=== PATIENT | male | born 1940 | race Caucasian/White ===

== ENCOUNTER → 2017-04-03 | Day surgery (SDC) | payer OTHER ==
[2017-03-14 14:39] VITALS: Ht 180.3 cm; Wt 109.1 kg
[~2017-04-03] VITALS: Ht 180.3 cm; Wt 109.1 kg
[~2017-04-03] MED LIST: 500ML BSS 0.3ML EPI 1:1000PF IRRIG ONE; ACETAMINOPHEN 325 MG TAB PO PRN; AMVISC PLUS 0.8ML SYRINGE INT OCU ONE; ATEN-175 PO; ATROPINE SULFATE 0.1 MG/ML 5ML SYR IV PRN; BSS FLUSH ONE; DRGTP25 TOP; ENDOCOAT 0.85ML SYRINGE INT OCU ONE; EpHEDrine SULFATE INJ 50 MG/ML AMP IV PRN; EpINEphrine INJ 1MG/ML AMP 1 MG/ML AMP ONE; FENTANYL CITRATE INJ 50 MCG/1 ML 2 ML VIAL ONE; FERR1TAB23 PO; LACTATED RINGER'S 1000ML 500 ML IV SCH; LIDOCAINE 4% OP SOLN DROP CHARGE ONE; LIDOCAINE 4% OP SOLN DROP CHARGE OPL SCH; LIDOCAINE HCL 1% MPF 2 ML VIAL ONE; MIDAZOLAM HCL 1 MG/ML 2ML VIAL ONE; MIX: 4ML BSS 1ML EPI 1:1000 PF TOP ONE; MOXIFLOXACIN OPH SOLN PER DROP CHARGE ONE; OMEP40CA PO; ONDANSETRON INJ 2 MG/ML 2 ML VIAL IV PRN; PHENYLEPHRINE HCL 10% OP SOLN PER DROP CHARGE ONE; POVIDONE-IODINE OP SOLN 30 ML BTL ONE; PROPARACAINE 0.5% OP SOLN PER DROP CHARGE OPL SCH; TOBRAMYCIN/DEXAMETHASONE OPH OINT PER APPLN CHARGE ONE; TRAM-10 PO
--- NOTE | 2017-04-03 06:36 | History & Physical Bridge - [place] ---
H&P Re-Evaluation Bridge Note: I have examined the patient, reviewed the History & Physical and in the interval since the performance of the History & Physical I have noted the following changes of clinical significance: No changes noted. Left eye cataract surgery.
[2017-04-03] MEDS: PHENYLEPHRINE HCL 10% OP SOLN PER DROP CHARGE OPL SCH ×3 (06:42→06:51)
[2017-04-03] MEDS: CYCLOPENTOLATE HCL 1% OP SOLN PER DROP CHARGE OPL SCH ×3 (06:43→06:52)
[2017-04-03] MEDS: TROPICAMIDE 1% OP SOLN PER DROP CHARGE OPL SCH ×3 (06:43→06:51)
[2017-04-03] MEDS: MOXIFLOXACIN OPH SOLN PER DROP CHARGE OPL SCH ×3 (06:44→06:52)
--- NOTE | 2017-04-03 07:23 | [facility] Post Operative Brief Note ---
Immediate Operative Summary Operative Date Apr 03, 2017. Pre-Operative Diagnosis Left eye cataract Post-Operative Diagnosis Same as preop Procedure(s) Performed Left Cataract Phacoemulsification With Intraocular Lens Implant; Toric Lens Surgeon Dr. Kuhn Gum Scoring Machine Operator Surgeon(s) None Estimated Blood Loss 0 mL Findings left cataract Specimens None Complication(s) None Disposition
--- NOTE | 2017-04-03 07:25 | [facility] Operative Report ---
Operative Report Date of Service Apr 03, 2017. Operative Report Phaco with toric IOL DATE OF OPERATION: 04/03/17 PREOPERATIVE DIAGNOSIS: Senile nuclear cataract and astigmatism, left eye POSTOPERATIVE DIAGNOSIS: Senile nuclear cataract and astigmatism, left eye PROCEDURE PERFORMED: Phacoemulsification with toric intraocular lens implantation, left eye SURGEON: Dr. Efe Kuhn ANESTHESIA: Topical with 1% intracameral lidocaine and monitored anesthesia care COMPLICATIONS: None DESCRIPTION OF PROCEDURE: After positively identifying the patient both verbally and by wristband in the preoperative area, the left eye was marked as the operative eye. Using a Robomarker, the 9 degree axis was marked after placing a drop or proparacaine. The patient was then brought back to the operating room by the anesthesia and nursing staff where they were given a drop of tetracaine and betadine into the operative eye. They were then sterilely prepped and draped in the standard fashion typical for ophthalmic surgery. Steri-strips were placed along the upper eyelids to keep the lashes back, and a lid speculum was placed into the operative eye. At this point, a documented time out was performed with members of the ophthalmology, nursing, and anesthesia staffs all agreeing upon the correct patient, correct location for surgery, correct procedure, and correct type and power of intraocular lens to be implanted. The microscope was then swung into position. Then, a paracentesis wound was made using a sideport blade. Then, in sequence, 1% preservative-free lidocaine followed by Endocoat viscoelastic was injected into the anterior chamber. Next , the main incision was made with a keratome blade in triplanar fashion. A sharp cystotome was introduced into the eye and used to create a tear in the anterior capsule, which was directed into a continuous curvilinear capsulorrhexis using Utrata forceps. Hydrodissection was then performed with BSS on a flat-tip cannula. Next, the phacoemulsification handpiece was introduced into the eye and used to remove the nucleus in a [id number] fashion. This was done without complication and then the irrigation-aspiration handpiece was introduced into the eye and used to remove all remaining cortical and epinuclear material. Amvisc was then injected into the anterior chamber as well as into the capsular bag and using the lens injector system, an [id number] 16.0 D lens, serial number [id number], and expiration date 10/2019 was injected into the capsular bag and rotated into the correct position to correctly line up with the toric marking. Next, the irrigation-aspiration handpiece was used to remove all remaining Amvisc. BSS was used to hydrate the main wound, and then BSS was injected into the paracentesis site to reach physiologic pressure and then the main wound was checked and found to be watertight. The patient was given drops of Vigamox and tobradex ointment into the operative eye, and then the surrounding area was cleaned and dried. A clear plastic shield was placed over the eye and the patient was then sat up and taken from the operating room by the anesthesia staff having tolerated the procedure well and suffering no complications. DISPOSITION: The patient was returned to the recovery room in stable condition. I attest to the content of the Intraoperative Record and any orders documented therein. Any exceptions are noted below.
--- NOTE | 2017-04-03 07:26 | Discharge Instructions-SurgCtr ---
Discharge Instructions Date of Service Apr 03, 2017. Visit Reason for Visit: Cataract Left Eye Discharge Discharge Diagnosis / Problem: left cataract Discharge Goals Goal(s): Decrease discomfort, Improve function Activity Recommendations Activity Limitations: as noted below Anesthesia . Post Anesthesia Instructions: If you have had General Anesthesia or IV Sedation: * Do not drive today. * Resume driving when surgeon permits. * Do not make important decisions or sign legal documents today. * Call surgeon for: 1. Temperature elevations greater than 101 degrees F. 2. Uncontrollable pain. 3. Excessive bleeding. 4. Persistent nausea and vomiting. 5. Medication intolerance (nausea, vomiting or rash). * For nausea and vomiting use only clear liquids such as: tea, soda, bouillon until nausea subsides, then gradually increase diet as tolerated. * If you have any concerns or questions, call your surgeon's office. If physician is unavailable and it is an emergency, call 911 or go to the nearest emergency room. . Instructions / Follow-Up Instructions / Follow-Up ACTIVITY RECOMMENDATIONS: * Light activities. * You may walk outside, read, watch television. * You may notice redness on the white part of the eye and some blurry vision - this is normal. MEDICATIONS: Resume previous medications unless instructed otherwise by your surgeon. Start all eye drops at 9:30 am today: * Eye drops (today): Durezol - one drop in operative eye 4 times daily Ofloxacin - one drop in operative eye every 2 hours while awake Ilevro - one drop in operative eye daily SPECIAL CARE INSTRUCTIONS: * Tape plastic shield over eye to sleep at night. Call your doctor at with any concerns or problems. FOLLOW UP VISIT: Follow-up with Dr Kuhn at [facility] as scheduled. Diet Recommendations Home Diet: no limitations Procedures Procedures Performed: Left Cataract Phacoemulsification With Intraocular Lens Implant; Toric Lens Pending Studies Studies pending at discharge: no Medical Emergencies . Who to Call and When: Medical Emergencies: If at any time you feel your situation is an emergency, please call 911 immediately. . Non-Emergent Contact Non-Emergency issues call your: Surgeon . . "Provider Documentation" section prepared by Efe Kuhn. .
[2017-04-03 07:27] VITALS: TEMP 36.6
[2017-04-03 07:49] VITALS: BP 136/78; PULSE 59; O2SAT 95
--- NOTE | 2017-04-03 07:53 | Anesthesia Progress Nt - [facility] ---
Anesthesia Post Op Note Date & Time Apr 03, 2017 at 07:52 Vital Signs Pain Intensity: 0 Vital Signs Past 12 Hours Date Time Temp Pulse Resp B/P (MAP) Pulse Ox O2 Delivery O2 Flow Rate FiO2 04/03/17 07:49 59 16 136/78 (97) 95 Room Air 04/03/17 07:27 36.6 63 16 153/81 (105) 97 Room Air 04/03/17 06:25 36.7 63 20 135/82 (99) 96 Room Air Notes Mental Status: alert / awake / arousable, participated in evaluation Pt Amnestic to Procedure: Yes Nausea / Vomiting: adequately controlled Pain: adequately controlled Airway Patency, RR, SpO2: stable & adequate BP & HR: stable & adequate Hydration State: stable & adequate Anesthetic Complications: no major complications apparent
== END | disposition home or self-care (01) ==
LOC: X.SURG 06:10
PROVIDERS: ATTEND Ophthalmology
DX: H25.12 Age-related nuclear cataract, left eye (principal); H52.202 Unspecified astigmatism, left eye; G47.33 Obstructive sleep apnea (adult) (pediatric); I10 Essential (primary) hypertension; M19.90 Unspecified osteoarthritis, unspecified site; E66.9 Obesity, unspecified; Z68.35 Body mass index [BMI] 35.0-35.9, adult; Z98.890 Other specified postprocedural states

== ENCOUNTER → 2017-04-17 | Day surgery (SDC) | payer OTHER ==
[2017-04-09 16:20] VITALS: Ht 180.3 cm; Wt 109.1 kg
[~2017-04-17] VITALS: Ht 180.3 cm; Wt 109.1 kg
[~2017-04-17] MED LIST changes: -FENTANYL CITRATE INJ 50 MCG/1 ML 2 ML VIAL ONE; -LIDOCAINE 4% OP SOLN DROP CHARGE OPL SCH; +LIDOCAINE 4% OP SOLN DROP CHARGE OPR SCH; -ONDANSETRON INJ 2 MG/ML 2 ML VIAL IV PRN; -PHENYLEPHRINE HCL 10% OP SOLN PER DROP CHARGE ONE; -PROPARACAINE 0.5% OP SOLN PER DROP CHARGE OPL SCH; +PROPARACAINE 0.5% OP SOLN PER DROP CHARGE OPR SCH
[2017-04-17] MEDS: PHENYLEPHRINE HCL 10% OP SOLN PER DROP CHARGE OPR SCH ×3 (06:37→06:47)
[2017-04-17] MEDS: TROPICAMIDE 1% OP SOLN PER DROP CHARGE OPR SCH ×3 (06:38→06:48)
[2017-04-17] MEDS: CYCLOPENTOLATE HCL 1% OP SOLN PER DROP CHARGE OPR SCH ×3 (06:39→06:49)
[2017-04-17] MEDS: MOXIFLOXACIN OPH SOLN PER DROP CHARGE OPR SCH ×3 (06:40→06:50)
--- NOTE | 2017-04-17 06:40 | History & Physical Bridge - [place] ---
H&P Re-Evaluation Bridge Note: I have examined the patient, reviewed the History & Physical and in the interval since the performance of the History & Physical I have noted the following changes of clinical significance: No changes noted. Right eye cataract surgery.
--- NOTE | 2017-04-17 07:29 | [facility] Post Operative Brief Note ---
Immediate Operative Summary Operative Date Apr 17, 2017. Pre-Operative Diagnosis Right Eye Cataract Post-Operative Diagnosis same Procedure(s) Performed Right Cataract Phacoemulsification With Intraocular Lens Implant Surgeon Dr. Tristan Kuhn Nitrocellulose Operator Surgeon(s) 0 Estimated Blood Loss 0 Findings right cataract Specimens none Complication(s) None Disposition
--- NOTE | 2017-04-17 07:30 | [facility] Operative Report ---
Operative Report Date of Service Apr 17, 2017. Operative Report DATE OF OPERATION: 04/17/17 PREOPERATIVE DIAGNOSIS: Senile nuclear cataract and astigmatism, right eye POSTOPERATIVE DIAGNOSIS: Senile nuclear cataract and astigmatism, right eye PROCEDURE PERFORMED: Phacoemulsification with toric intraocular lens implantation, right eye SURGEON: Dr. Efe Kuhn ANESTHESIA: Topical with 1% intracameral lidocaine and monitored anesthesia care COMPLICATIONS: None DESCRIPTION OF PROCEDURE: After positively identifying the patient both verbally and by wristband in the preoperative area, the right eye was marked as the operative eye. Using a Robomarker, the 167 degree axis was marked after placing a drop of proparacaine. The patient was then brought back to the operating room by the anesthesia and nursing staff where they were given a drop of tetracaine and betadine into the operative eye. They were then sterilely prepped and draped in the standard fashion typical for ophthalmic surgery. Steri-strips were placed along the upper eyelids to keep the lashes back, and a lid speculum was placed into the operative eye. At this point, a documented time out was performed with members of the ophthalmology, nursing, and anesthesia staffs all agreeing upon the correct patient, correct location for surgery, correct procedure, and correct type and power of intraocular lens to be implanted. The microscope was then swung into position. Then, a paracentesis wound was made using a sideport blade. Then, in sequence, 1% preservative-free lidocaine followed by Endocoat viscoelastic was injected into the anterior chamber. Next , the main incision was made with a keratome blade in triplanar fashion. A sharp cystotome was introduced into the eye and used to create a tear in the anterior capsule, which was directed into a continuous curvilinear capsulorrhexis using Utrata forceps. Hydrodissection was then performed with BSS on a flat-tip cannula. Next, the phacoemulsification handpiece was introduced into the eye and used to remove the nucleus in a [id number]-[id number] fashion. This was done without complication and then the irrigation-aspiration handpiece was introduced into the eye and used to remove all remaining cortical and epinuclear material. Amvisc was then injected into the anterior chamber as well as into the capsular bag and using the lens injector system, a [id number] 16.5 D lens, serial number [id number], and expiration date 10/2019 was injected into the capsular bag and rotated into the correct position to correctly line up with the toric marking. Next, the irrigation-aspiration handpiece was used to remove all remaining Amvisc. BSS was used to hydrate the main wound, and then BSS was injected into the paracentesis site to reach physiologic pressure and then the main wound was checked and found to be watertight. The patient was given drops of Vigamox and tobradex ointment into the operative eye, and then the surrounding area was cleaned and dried. A clear plastic shield was placed over the eye and the patient was then sat up and taken from the operating room by the anesthesia staff having tolerated the procedure well and suffering no complications. DISPOSITION: The patient was returned to the recovery room in stable condition. I attest to the content of the Intraoperative Record and any orders documented therein. Any exceptions are noted below.
--- NOTE | 2017-04-17 07:32 | Discharge Instructions-SurgCtr ---
Discharge Instructions Date of Service Apr 17, 2017. Visit Reason for Visit: Right Cataract Discharge Discharge Diagnosis / Problem: right cataract Discharge Goals Goal(s): Decrease discomfort, Improve function Activity Recommendations Activity Limitations: as noted below Anesthesia . Post Anesthesia Instructions: If you have had General Anesthesia or IV Sedation: * Do not drive today. * Resume driving when surgeon permits. * Do not make important decisions or sign legal documents today. * Call surgeon for: 1. Temperature elevations greater than 101 degrees F. 2. Uncontrollable pain. 3. Excessive bleeding. 4. Persistent nausea and vomiting. 5. Medication intolerance (nausea, vomiting or rash). * For nausea and vomiting use only clear liquids such as: tea, soda, bouillon until nausea subsides, then gradually increase diet as tolerated. * If you have any concerns or questions, call your surgeon's office. If physician is unavailable and it is an emergency, call 911 or go to the nearest emergency room. . Instructions / Follow-Up Instructions / Follow-Up ACTIVITY RECOMMENDATIONS: * Light activities. * You may walk outside, read, watch television. * You may notice redness on the white part of the eye and some blurry vision - this is normal. MEDICATIONS: Resume previous medications unless instructed otherwise by your surgeon. Start all eye drops at 9:30 am today: * Eye drops (today): Durezol - one drop in operative eye 4 times daily Ofloxacin - one drop in operative eye every 2 hours while awake Ilevro - one drop in operative eye daily SPECIAL CARE INSTRUCTIONS: * Tape plastic shield over eye to sleep at night. Call your doctor at with any concerns or problems. FOLLOW UP VISIT: Follow-up with Dr Kuhn at [facility] as scheduled. Diet Recommendations Home Diet: no limitations Procedures Procedures Performed: Right Cataract Phacoemulsification With Intraocular Lens Implant Pending Studies Studies pending at discharge: no Medical Emergencies . Who to Call and When: Medical Emergencies: If at any time you feel your situation is an emergency, please call 911 immediately. . Non-Emergent Contact Non-Emergency issues call your: Surgeon . . "Provider Documentation" section prepared by Efe Kuhn. .
[2017-04-17 07:38] VITALS: TEMP 36.6
--- NOTE | 2017-04-17 07:57 | Anesthesia Progress Nt - [facility] ---
Anesthesia Post Op Note Date & Time Apr 17, 2017 at 07:57 Vital Signs Pain Intensity: 0 Vital Signs Past 12 Hours Date Time Temp Pulse Resp B/P (MAP) Pulse Ox O2 Delivery O2 Flow Rate FiO2 04/17/17 07:38 36.6 62 16 149/80 (103) 98 Room Air 04/17/17 06:27 36.6 61 16 165/91 (115) 95 Room Air Notes Mental Status: alert / awake / arousable, participated in evaluation Pt Amnestic to Procedure: Yes Nausea / Vomiting: adequately controlled Pain: adequately controlled Airway Patency, RR, SpO2: stable & adequate BP & HR: stable & adequate Hydration State: stable & adequate Anesthetic Complications: no major complications apparent
[2017-04-17 07:58] VITALS: BP 131/75; PULSE 59; O2SAT 95
== END | disposition home or self-care (01) ==
LOC: X.SURG 06:05
PROVIDERS: ATTEND Ophthalmology
DX: H25.11 Age-related nuclear cataract, right eye (principal); H52.201 Unspecified astigmatism, right eye; I10 Essential (primary) hypertension; K21.9 Gastro-esophageal reflux disease without esophagitis

== ENCOUNTER 2024-04-08 05:04 | Observation (INO) ==
--- NOTE | 2024-03-03 14:41 | PAT Medication Instructions ---
Medication Instructions Date of Service March 03, 2024 Home Medications acetaminophen 500 mg tablet 1,000 mg PO Q6H PRN Pain amlodipine 5 mg tablet 5 mg PO QAM atorvastatin 20 mg tablet 20 mg PO QAM duloxetine 60 mg capsule,delayed release 120 mg PO QAM famotidine 20 mg tablet 20 mg PO BID ferrous sulfate 27 mg iron tablet 54 mg PO Q2D finasteride 5 mg tablet 5 mg PO QAM folic acid 400 mcg tablet 0.4 mg PO QAM magnesium 250 mg tablet 250 mg PO HS octreotide,microspheres 10 mg intramuscular kit 10 mg IM UD omeprazole 40 mg capsule,delayed release 40 mg PO QAM polyethylene glycol 3350 17 gram/dose oral powder (Miralax) 17 g PO DAILY PRN Constipation ropinirole 0.5 mg tablet 0.5 mg PO HS ASK your prescriber and surgeon octreotide,microspheres 10 mg intramuscular kit 10 mg IM UD DO NOT take the morning of surgery ferrous sulfate 27 mg iron tablet 54 mg PO Q2D folic acid 400 mcg tablet 0.4 mg PO QAM polyethylene glycol 3350 17 gram/dose oral powder (Miralax) 17 g PO DAILY PRN Constipation Take morning of surgery With a small sip of water, OTHERWISE NOTHING TO EAT OR DRINK AFTER MIDNIGHT: acetaminophen 500 mg tablet 1,000 mg PO Q6H PRN Pain (if needed) amlodipine 5 mg tablet 5 mg PO QAM atorvastatin 20 mg tablet 20 mg PO QAM duloxetine 60 mg capsule,delayed release 120 mg PO QAM famotidine 20 mg tablet 20 mg PO BID finasteride 5 mg tablet 5 mg PO QAM omeprazole 40 mg capsule,delayed release 40 mg PO QAM Take evening before surgery acetaminophen 500 mg tablet 1,000 mg PO Q6H PRN Pain (if needed) famotidine 20 mg tablet 20 mg PO BID magnesium 250 mg tablet 250 mg PO HS polyethylene glycol 3350 17 gram/dose oral powder (Miralax) 17 g PO DAILY PRN Constipation (if needed) ropinirole 0.5 mg tablet 0.5 mg PO HS Other Notes If you have any questions please call us at [phone] or [phone] or [phone] or [phone]
--- NOTE | 2024-03-04 13:40 | Anesthesiology Consultation ---
Date of Service March 04, 2024 Assessment & Plan (1) Encounter for pre-operative examination: - anemia: H&H: . Patient's made aware that PCP clearance will be needed. She confirmed he sees Dr. Praveena Banuelos with [facility] PCP. Surgeon's office made aware. Awaiting S PCP response to optimization form. - h/o angioedema in 2019 per [place] records/patient and , unknown cause. Patient and his deny recurrence. This was discussed with Dr. Moon who advised nothing additional is needed prior to surgery from this standpoint. - spinal cord stimulator: patient aware to bring remote to hospital DOS. - Outpatient joint assessment: Patient is currently scheduled for inpatient pathway. If re-evaluated and patient/surgeon requests outpatient pathway, patient is not recommended candidate for outpatient joint program from anesthesia standpoint. Chart Review Chart Review: Pending: Refer to Additional Notes / Consult section and Patient seen in Pre Admission Testing Teaching & Discussion Pre-Anesthesia Teaching/Discussion Notes: Instructed NPO after midnight before surgery, except medications with 15 cc of water. Medication instructions provided according to the PAT guidelines. History Surgery Operation Date: 04/08/24 09:20 Proposed Procedures p Right Total Knee Arthroplasty - Luther Burnette MD Height/Weight Height: 5 ft 11 in Weight: 106.5 kg Allergies Allergy/AdvReac Type Severity Reaction Status Date / Time No Known Drug Allergies Allergy Unknown . Verified 03/03/24 12:07 Medications Home Medications Medication Instructions Recorded Confirmed Last Taken acetaminophen 500 mg tablet 1,000 mg PO Q6H PRN Pain 03/03/24 03/03/24 Unknown amlodipine 5 mg tablet 5 mg PO QAM 03/03/24 03/03/24 Unknown atorvastatin 20 mg tablet 20 mg PO QAM 03/03/24 03/03/24 Unknown duloxetine 60 mg capsule,delayed 120 mg PO QAM 03/03/24 03/03/24 Unknown release famotidine 20 mg tablet 20 mg PO BID 03/03/24 03/03/24 Unknown ferrous sulfate 27 mg iron tablet 54 mg PO Q2D 03/03/24 03/03/24 Unknown finasteride 5 mg tablet 5 mg PO QAM 03/03/24 03/03/24 Unknown folic acid 400 mcg tablet 0.4 mg PO QAM 03/03/24 03/03/24 Unknown magnesium 250 mg tablet 250 mg PO HS 03/03/24 03/03/24 Unknown octreotide,microspheres 10 mg 10 mg IM UD 03/03/24 03/03/24 Unknown intramuscular kit omeprazole 40 mg capsule,delayed 40 mg PO QAM 03/03/24 03/03/24 Unknown release polyethylene glycol 3350 17 17 g PO DAILY PRN Constipation 03/03/24 03/03/24 Unknown gram/dose oral powder (Miralax) ropinirole 0.5 mg tablet 0.5 mg PO HS 03/03/24 03/03/24 Unknown Past Medical History Medical History (Updated 03/04/24 @ 14:29 by Yue Lundberg PA-C) Angiectasia AVM (arteriovenous malformation) duodenum Back pain chronic, denies change or worsening BPH (benign prostatic hyperplasia) DDD (degenerative disc disease), cervical DDD (degenerative disc disease), lumbar Dyslipidemia Frozen shoulder right GERD (gastroesophageal reflux disease) controlled, stable per pt Hearing loss hearing aids History of blood transfusion (~11/2023) Hx of angioedema (2019) Hx of lower gastrointestinal bleeding (~11/2023) hospitalized [facility]>required transfusions Hypertension controlled, stable per pt Iron deficiency anemia follows with PCP [facility]EDI (obstructive sleep apnea) cpap device (does not use regularly) Presence of neurostimulator spinal cord stimulator>will bring remote RLS (restless legs syndrome) Patient denies h/o stroke, seizures, heart attack, heart failure, DM, or blood clots/DVTs. Exercise / Class Metabolic Activity II 4-5 Yardwork/Stairs/Walk up hill (denies chest discomfort or shortness of breath with one flight of stairs) Past Family History Family History Father Diabetes Coronary heart disease Osteoarthritis Mother Diabetes Coronary heart disease Other No family history of adverse response to anesthesia Past Surgical History Surgical History H/O arthroscopic knee surgery right H/O cervical spine surgery x 2 cervical surgeries>pt ? details or dates (pt states can good rom) H/O hernia repair H/O repair of rotator cuff left H/O shoulder surgery right shoulder fusion with arm tendon transfer 1970 History of carpal tunnel surgery left History of cataract surgery right/left History of colonoscopy History of esophagogastroduodenoscopy (EGD) History of lumbar surgery x 2 *lumbar surgery ? details/dates History of tooth extraction Past Anesthesia History No Hx of Anesthesia Complications and No Family Hx of Anesthesia Complications History of PONV No Hx of PONV and No Hx of Motion Sickness Social History Smoking Status: Former smoker Do You Dip or Chew Tobacco: No Smoking End Date: 1981 Hx Alcohol Use: Yes Alcohol type: beer alcohol intake frequency: a few times a week Hx Substance Use: No substance use type: does not use Review of Systems Patient denies chest pain, shortness of breath, dyspnea on exertion, fever, chills, cough, wheezing, or palpitations. Physical Exam Vital Signs Vitals BP 131/75 P 77 TEMP 98.4 SP02 96% on RA RESP 18 Physical Patient resting comfortably in chair in no acute distress, alert and oriented, responding appropriately throughout visit Moderately limited cervical extension range of motion without pain TMD 3.5 finger breadths Mallampati Score 2 Dentition: full upper plate, denies chipped or loose teeth, caps/crowns, impla nts or bridges Lungs: normal respiratory effort. Good air movement, clear throughout to auscultation, no adventitious breath sounds Cardiac: irregularly irregular rhythm, no murmurs noted Carotid arteries: negative bruit bilat Lab Results Anesthesia Preop Results Results Anesthesia Widget: WBC 5.03 K/ul (4.8-10.8) 03/04/24 Hgb 9.6 g/dl (14.0-18.0) L 03/04/24 Hct 31.6 % (42.0-52.0) L 03/04/24 Plt 395 K/uL (130-400) 03/04/24 Na 136 mmol/L (136-145) 03/04/24 K 5.0 mmol/L (3.5-5.1) 03/04/24 Cl 105 mmol/L (98-107) 03/04/24 CO2 26 mmol/L (21-32) 03/04/24 BUN 31 mg/dl (6-23) H 03/04/24 Creat 1.20 mg/dl (0.6-1.4) 03/04/24 Glucose Level 100 mg/dl (70-99(Fasting)) H 03/04/24 PT 10.2 Seconds (9.0-12.0) 03/04/24 PTT 25 Seconds (21-31) 03/04/24 INR 0.9 (0.9-1.1) 03/04/24 Urine Color Yellow 03/04/24 Urine Appearance Clear (Clear) 03/04/24 Urine pH 6.5 (4.5-7.5) 03/04/24 Urine Specific Ruffin 1.021 (1.000-1.030) 03/04/24 Urine Protein Negative (Negative) 03/04/24 Urine Glucose (UA) Negative (Negative) 03/04/24 Urine Ketones Trace (Negative) H 03/04/24 Urine Blood Negative (Negative) 03/04/24 Urine Nitrite Negative (Negative) 03/04/24 Urine Bilirubin Negative (Negative) 03/04/24 Urine Urobilinogen Negative (Negative) 03/04/24 Urine Leukocyte Esterase Negative (Negative) 03/04/24 Blood Type A Positive 03/04/24 Antibody Screen NEGATIVE 03/04/24 Testing Electrocardiogram Date: 02/21/24 NSR, rate 92 bpm RBBB Chest X-Ray Date: 03/04/24 No acute chest disease. Stress Test Date: 10/23/21 Dobutamine MPHR 89% Negative stress echo and EKG EF 65-69% Normal LV wall motion Grade I diastolic dysfunction
--- NOTE | 2024-04-01 16:41 | History & Physical Report ---
Date of Service April 01, 2024 Assessment & Plan (1) Osteoarthritis of right knee: Plan: End-stage right knee osteoarthritis failed conservative management. Patient has [id number] grinding causing giving way and pain in his knee and also proceed with total knee replacement. Patient scheduled for right total knee replacement. Osteoarthritis type: primary Qualified Code(s): M17.11 - Unilateral primary osteoarthritis, right knee History of Present Illness Chief Complaint: Chronic right knee pain Primary Care Provider: JONATHAN Velasco 83-year-old male with chronic progressive right knee pain failed conservative management. Radiographs demonstrate he has end-stage osteoarthritis [id number] lateral compartment with tricompartmental osteoarthritis and complex lateral meniscus tear. Patient denies headaches, sweats, fevers, chills, double vision, blurred vision, cough, sore throat, dysphagia, chest pain, sob, wheezing, n/v/d/c, numbness, tingling, fatigue, urinary symptoms, mood disorders. ROS positive for chronic low back pain acid reflux purposeful weight loss with ongoing obesity Allergies Allergy/AdvReac Type Severity Reaction Status Date / Time No Known Drug Allergies Allergy Unknown . Verified 03/03/24 12:07 Home Medications Medication Instructions Recorded Confirmed Type acetaminophen 500 mg tablet 1,000 mg PO Q6H PRN Pain 03/03/24 03/03/24 History amlodipine 5 mg tablet 5 mg PO QAM 03/03/24 03/03/24 History atorvastatin 20 mg tablet 20 mg PO QAM 03/03/24 03/03/24 History duloxetine 60 mg capsule,delayed 120 mg PO QAM 03/03/24 03/03/24 History release famotidine 20 mg tablet 20 mg PO BID 03/03/24 03/03/24 History ferrous sulfate 27 mg iron tablet 54 mg PO Q2D 03/03/24 03/03/24 History finasteride 5 mg tablet 5 mg PO QAM 03/03/24 03/03/24 History folic acid 400 mcg tablet 0.4 mg PO QAM 03/03/24 03/03/24 History magnesium 250 mg tablet 250 mg PO HS 03/03/24 03/03/24 History octreotide,microspheres 10 mg 10 mg IM UD 03/03/24 03/03/24 History intramuscular kit omeprazole 40 mg capsule,delayed 40 mg PO QAM 03/03/24 03/03/24 History release polyethylene glycol 3350 17 17 g PO DAILY PRN Constipation 03/03/24 03/03/24 History gram/dose oral powder (Miralax) ropinirole 0.5 mg tablet 0.5 mg PO HS 03/03/24 03/03/24 History Past Med/Surg History Problem List Osteoarthritis of right knee Encounter for pre-operative examination Right knee DJD Sciatica Failed back syndrome HLD (hyperlipidemia) Benign essential hypertension Previous back surgery Postoperative state (Acute 12/21/13) Medical History AVM (arteriovenous malformation) duodenum Hearing loss hearing aids History of blood transfusion (~11/2023) Hx of angioedema (2019) Hx of lower gastrointestinal bleeding (~11/2023) hospitalized [facility] [place]>required transfusions Back pain chronic, denies change or worsening Hypertension controlled, stable per pt Frozen shoulder right BPH (benign prostatic hyperplasia) 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 details or dates (pt states can good rom) History of lumbar surgery x 2 *lumbar surgery ? details/dates History of esophagogastroduodenoscopy (EGD) History of colonoscopy H/O hernia repair History of tooth extraction History of cataract surgery right/left H/O repair of rotator cuff left History of carpal tunnel surgery left H/O arthroscopic knee surgery right Family History Father Diabetes Coronary heart disease Osteoarthritis Mother Diabetes Coronary heart disease Other No family history of adverse response to anesthesia Social History Smoking Status: Former smoker Tobacco Type: Cigarettes Age Quit Using Tobacco: 50; packs per day: 2; Smoking End Date: 1981; Second Hand Exposure: No; Do You Dip or Chew Tobacco: No; Hx Alcohol Use: Yes Alcohol type: beer Hx Substance Use: No Preferred Language: Uzbek 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 Required: No Beliefs That Will Affect Care: None marital status: Current Living Situation: Spouse current occupational status: retired Feels Safe at Home: Yes Safety Concerns: Feels Safe At This Time Seatbelt Use: always Do you think of yourself as: straight/heterosexual Assistive Devices: Cane, CPAP, Denture - Upper, Glasses and Hearing Aid - Bilateral Assistive Devices Comment: reading glasses Review of Systems All systems reviewed & are unremarkable except as noted in HPI & below Physical Exam Constitutional: WD/WN, vitals as above Respiratory: normal respiratory effort; no respiratory distress Cardiovascular: Rate/Rhythm: regular rate and regular rhythm Musculoskeletal: Right knee exam demonstrates 0 through 130 degrees range of motion painful Lyndsey test on the lateral side moderate patellofemoral crepitation lateral joint line tenderness mild effusion ,crepitation with range of motion, valgus knee. Distal circulation sensorimotor exam intact. Skin: no rashes, warm and dry Neurologic: normal touch/pain/proprioception Psychiatric: A+Ox3, euthymic affect
[2024-04-08] MEDS ORDERED: BUPIVACAINE 0.25% PF 30 ML VIAL ONE (06:11)
[2024-04-08] MEDS ORDERED: BUPIVACAINE 0.5 % 5 MG/1 ML PF 10ML VIAL ONE (06:11)
[2024-04-08] MEDS: LR 500ML BOLUS, THEN 15ML/HR IV SCH (06:16)
[2024-04-08] MEDS: GABAPENTIN 300 MG CAP PO SCH (06:17)
[2024-04-08] MEDS: FAMOTIDINE 20 MG TAB PO SCH (06:17)
[2024-04-08] MEDS: METOCLOPRAMIDE HCL 10 MG TABLET PO SCH (06:17)
[2024-04-08] MEDS: ACETAMINOPHEN 500 MG TAB PO SCH ×2 (06:17→13:42)
[2024-04-08] MEDS: CeleBREX 200 MG CAP PO SCH (06:17)
[2024-04-08] MEDS: dexAMETHasone**PF** 10 MG/ML VIAL IV SCH (06:18)
[2024-04-08] MEDS: LR 60ML/HR IV SCH (06:18)
[2024-04-08] MEDS ORDERED: ePHEDrine sulfate 50 MG/ML AMP IV PRN (06:35)
[2024-04-08] MEDS ORDERED: fentaNYL citrate PF 100 MCG/2 ML VIAL IV PRN (06:35)
[2024-04-08] MEDS ORDERED: HYDROmorphone INJ 1 MG/ML SYRINGE IV PRN (06:35)
[2024-04-08] MEDS ORDERED: ONDANSETRON INJ 2 MG/ML 2 ML VIAL IV PRN ×2 (06:35→11:00)
[2024-04-08] MEDS ORDERED: ATROPINE SULFATE 0.1 MG/ML 10ML SYR IV PRN (06:35)
[2024-04-08] MEDS ORDERED: MIDAZOLAM HCL 1 MG/ML 2ML VIAL ONE (06:39)
[2024-04-08] MEDS ORDERED: PROPOFOL IV EMULSION 10 MG/ML 20 ML VIAL IV ONE (06:39)
[2024-04-08] MEDS ORDERED: LIDOCAINE 2% 2 ML VIAL/AMP(20MG/ML) INFIL ONE (06:39)
[2024-04-08] MEDS ORDERED: ROCURONIUM BROMIDE 10 MG/ML 5 ML VIAL IV ONE ×2 (06:48→07:59)
[2024-04-08] MEDS ORDERED: ONDANSETRON INJ 2 MG/ML 2 ML VIAL ONE (06:48)
[2024-04-08] MEDS ORDERED: fentaNYL citrate PF 100 MCG/2 ML VIAL ONE (06:48)
[2024-04-08] MEDS: TRANEXAMIC ACID 1,000 MG **IV Pre-op IV SCH (07:13)
--- NOTE | 2024-04-08 07:17 | History & Physical Bridge Note ---
Date of Service April 08, 2024 History & Physical Bridge Note I have examined the patient, reviewed the History & Physical and in the interval since the performance of the History & Physical I have noted the following changes of clinical significance: no changes noted
[2024-04-08] MEDS: ceFAZolin 2000MG 2,000 MG/15 ML SYR IV SCH ×2 (07:22→15:49)
[2024-04-08] MEDS ORDERED: DEXAMETHASONE SOD INJ 4 MG/ML VIAL ONE (07:59)
[2024-04-08] MEDS ORDERED: SUGAMMADEX SODIUM 200 MG/2 ML VIAL IV ONE (08:02)
--- OUTSIDE RECORDS SUMMARY | 2024-04-08 08:57 | External Medical Summary | Summary of Care ---
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 Name Role Phone Praveena Banuelos Primary Care Provider [phone] Reason for Visit * Reason Comments Follow Up Encounter Details Date Type Department Care Team (Late st Contact Info) Description 04/06/2024 5:00 PM EDT Telemedicine Hematology Oncology, [place] [address] [address] [place] [address] Roe Galarza MD [address] [facility] [place] [address] Iron deficiency anemia due to chronic blood loss*; Folic acid deficiency Allergies No known active allergiesdocumented as of this encounter (statuses as of 04/06/2024) Medications Medication Sig Dispensed Refills Start Date End Date Status Acetaminophen 500 MG Oral Tablet (TYLENOL) TAKE TWO TABLETS BY MOUTH PRN 09/15/2020 Active Folic Acid 400 MCG Oral TabletIndications:F olic acid deficiency Take 1 Tablet by mouth in the morning. 90 Tablet 2 08/02/2023 Active Polyethylene Glycol 3350 17 GM Oral Packet (MiraLax) Take 1 Packet by mouth daily as needed for Constipation. Active CPAP every night at bedtime. Active Iron 240 (27 Fe) MG Oral Tablet Take by mouth. 2 tablets every other day Active Finasteride 5 MG Oral Tablet (Proscar) Take 1 Tablet by mouth in the morning. Active amLODIPine Besylate 5 MG Oral Tablet (Norvasc) Take 1 Tablet by mouth in the morning. 90 Tablet 1 10/09/2023 Active Famotidine 20 MG Oral Tablet (Pepcid)Indications :Gastroesophageal reflux disease without esophagitis TAKE ONE TABLET BY MOUTH IN THE MORNING AND BEFORE BEDTIME. 200 Tablet 2 11/20/2023 Active Octreotide Acetate 10 MG Intramuscular Kit (SandoSTATIN LAR Dep[place]) Inject 10 mg into a large muscle every month. 3 Kit 3 12/09/2023 Active Additional Information Patient taking differently:10 mg Intramuscular QMONTH,12/23/23 getting first shot tomorrow 12/23, Reported on 12/23/2023 Atorvastatin Calcium 20 MG Oral Tablet (Lipitor)Indication s:Dyslipidemia, goal LDL below 100 TAKE ONE TABLET BY MOUTH EVERY MORNING 90 Tablet 3 01/07/2024 Active Omeprazole 40 MG Oral Capsule Delayed Release (PriLOSEC)Indicatio ns:Gastroesophageal reflux disease without esophagitis Take 1 Capsule by mouth daily before breakfast. 90 Capsule 3 01/07/2024 Active rOPINIRole HCl 0.5 MG Oral Tablet (Requip) Take 1 Tablet by mouth at bedtime. 30 Tablet 5 03/03/2024 Active DULoxetine HCl 60 MG Oral Capsule Delayed Release Particles (Cymbalta) Take 2 Capsules by mouth in the morning. 200 Capsule 1 03/12/2024 Active documented as of this encounter (statuses as of 04/06/2024) Active Problems Problem Noted Date Diagnosed Date Dizziness 12/23/2023 Gastrointestinal hemorrhage 10/01/2023 AVM (arteriovenous malformation) of duodenum, 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 Sacroiliitis 08/30/2023 Tachycardia 08/28/2023 Symptomatic anemia 08/13/2023 Orthostatic hypotension 08/13/2023 Hearing loss 10/16/2021 S/P insertion of spinal cord stimulator 08/28/20 21 Overview: 08/28/2021 L flank subcut device (working) Monitored by [employer] Last Assessment & Plan: Monitored by [employer] rep Nocturia 04/24/2021 Last Assessment & Plan: About 3 obtain PSA Hip pain, right 03/08/2021 Overview: 03/08/2021 persistent symptoms refer to ortho Last hip x-ray 04/13/19: Early degenerative changes of the right hip.No evidence of hip fracture.Lumbar fusion. Right SI joint fusion Chronic right-sided thoracic back pain Postlaminectomy syndrome, lumbar region 09/14/20 RLS (restless legs syndrome) 06/19/2018 Overview: 04/24/2021 resolved (likely from iron def -now fully supplemented ) Last Assessment & Plan: resolved (likely from iron def -now fully supplemented ) History of iron deficiency anemia 06/19/2018 Overview: 05/09/2021 stool test was negative for blood. Will monitor on 1 iron tablet a day 04/25/2021 has been taking 1 a day Hgb =14.6 but high retic count . Pt has declined video caps 12/18/2020 Your hemoglobin level is normal. Please complete a home stool test in about a month . If your stool test is negative we will cut your iron supplementation to 3 tabs a week Pt has likely chronic GI loss but his recent colonoscopy and EGD Hemoglobin Results: Lab Results Component Value Date/Time HGB - [facility] 14.6 04/24/2021 10:14 AM HGB - [facility] 15.1 12/16/2020 04:41 PM HGB - [facility] 14.0 11/08/2020 09:20 AM HGB - [facility] 10.9 (L) 09/29/2020 10:52 AM HGB - [facility] 15.2 09/08/2019 12:27 PM Last Assessment & Plan: Last hgb nl Severe obesity with body mas s index (BMI) of 35.0 to 39.9 with serious comorbidity 11/25/2017 Overview: BMI Readings from Last 6 Encounters: 08/28/21 38.87 kg/m 06/08/21 38.35 kg/m 05/05/21 38.35 kg/m 04/24/21 38.35 kg/m 04/24/21 38.44 kg/m 04/11/21 37.66 kg/m Last Assessment & Plan: Encouraged to reduction Chronic right shoulder pain 04/05/2017 Overview: 04/24/2021 started PT will see dr Crain in May Last Assessment & Plan: started PT will see dr Crain in May Iron deficiency anemia due to chronic blood loss 03/03/2016 FREDI (obstructive sleep apnea) 04/25/2015 Overview: 04/27/2021 Approved supplies (not seen by sleep med since 2015) Will be followed by sleep medicine, supplier aware to send any subsequent requests there. 04/24/2021 Will get replacement part and start using 12/16/2020 not using 11/01/2020 not using daily Encouraged Does not wear cpap Last Assessment & Plan: Encouraged to continue CPAP and to see sleep medicine Hiatal hernia 05/10/2014 Overview: 12/18/2020 possibly cause of his chronic iron deficiency anemia of GI loss. Patient declined video capsule. HTN, goal below 150/90 03/23/2014 Last Assessment & Plan: satisfactory Dyslipidemia, goal LDL below 70 03/23/2014 Overview: 04/24/2021 Not taking atorva for months but willing to restart Last Assessment & Plan: recheck before next appointment(taking atorva) DDD (degenerative disc disease), cervical DDD (degenerative disc disease), lumbar Gastroesophageal reflux disease without esophagi tis documented as of this encounter (statuses as of 04/06/2024) Resolved Problems Problem Noted Date Diagnosed Date Resolved Date Takes iron supplements 12/16/202005/14 Overview: 04/24/2021 never completed , give another FOBT 12/18/2020 letter to pt: Your hemoglobin level is normal. Please complete a home stool test in about a month . If your stool test is negative we will cut your iron supplementation to 3 tabs a weekv Last Assessment & Plan: never completed , give another FOBT Hand dermatitis 12/04/2020 01/12/2022 Overview: 12/16/2020 susp urticaria by derm will initiate famotidine 20 twice a day Last Assessment & Plan: satisfactory on cream Shoulder impingement syndrome 04/05/2017 11/25/2017 Iron deficiency anemia 03/03/201603/03 MEDICATION USE AGREEMENT 09/29/2015 Overview: Managed by Dr Hall. To view the Medication Usage Agreement, go to Action, Patient Files. Diverticulosis of sigmoid colon 05/18/2014 11/26/2018 Malaise and fatigue 05/10/2014 07/22/20 17 GERD (gastroesophageal reflux disease) 03/23/2014 07/22/2017 Hypertension 09/29/2015 Hypercholesteremia 7 Unspecified deficiency anemia 07/22/2017 Pain in joint, lower leg 06/2017 documented as of this encounter (statuses as of 04/06/2024) Immunizations Name Administration Dates Next Due COVID-19 mRNA, LNP-s, No Pre serve, 2-Dose Series (Moderna) 12/17/2020,11/18/2020 Pneumococcal Conjugate Vacc, 13 Valent (Prevnar) 07/27/2019,01/10/2015 Pneumococcal Polysaccharide PPV23 (Pneumovax) 04/22/2008 Seasonal Influenza Virus Vac cine, Unspecified Formulation 07/14/2020 Seasonal Influenza, Quadriva lent Hd (Fluzone Hd) 06/25/2023,07/24/2022,08/28/2021 Seasonal Influenza, Quadriva lent, No Preserve, IM 11/30/2016,09/29/2015 Seasonal Influenza, Split, I IV3, With Preserve, Inj 07/08/2017,07/01/2014,08/25/2013,07/31,07/30/2011 Seasonal Influenza, Trivalen t, Adjuvanted, 65+ yrs 07/27/2019 TDAP (age 10 and older)(Boostrix) 12/23/2020,01/2015 Varicella Zoster Vaccine (Adult) 11/04/2014 Zoster Vaccine Recombinant (Shingrix) 03/23/2021 ,07/31/2019 documented as of this encounter Social History Tobacco Use Types Packs/Day Years Used Date Smoking Tobacco: Former Cigarettes Q uit: 03/23/1982 Pipe Smokeless Tobacco: Former Quit: 10/14/1999 Alcohol Use Standard Drinks/Week Comments Yes 1 (1 standard drink = 0.6 oz pur e alcohol) 3 beer a week PHQ-2 Answer Date Recorded PHQ Adult Total Score 0 03/13/2024 Hunger Vital Sign Answer Date Recorded Within the past 12 months, y ou worried that your food would run out before you got the money to buy more. Never true 02/28/20 24 Within the past 12 months, t he food you bought just didn't last and you didn't have money to get more. Never true 02/28/2024 Childcare Answer Date Recorded Do you feel overwhelmed with taking care of a child, family member or friend? No 02/28/2024 Does your family need help f inding childcare? (Household - for ages 0-17 years) Not on file 02/28/2024 Clothing Answer Date Recorded Have you been unable to get clothing when it was really needed? No 02/28/2024 Is your family able to get c lothes or diapers when needed? (Household - for ages 0-17 years) Not on file 02/28/2024 Personal Safety Answer Date Recorded Do you feel unsafe or have concerns for your saf ety? No 02/28/2024 Do you have concerns for you r family's safety? (Household - for ages 0-17 years) Not on file 02/28/2024 Utilities Answer Date Recorded Do you have trouble paying y our heating, water, or electric bill? No 02/28/2024 Is your family able to pay t he heat, water, or electric bill? (Household - for ages 0-17 years) Not on file 02/28/2024 Does your family have access to good internet? (Household - for ages 0-17 years) Not on file 02/28/2024 Employment Status Answer Date Recorded Are you unemployed or without regular income? No 02/28/2024 Does the household have a re gular source of income? (Household - for ages 0-17 years) Not on file 02/28/2024 Social Connections Answer Date Recorded How often do you feel lonely or isolated from th ose around you? Never 02/28/2024 Financial Resource Strain Answer Date R ecorded Do you have any trouble payi ng for your medications, or do you think you might in the future? No 02/28/2024 Does your family have troubl e paying for medicine? (Household - for ages 0-17 years) Not on file 02/28/2024 Transportation Needs Answer Date Record ed READ ONLY Do you have troubl e getting a ride to medical visits or work? Never True 02/28/2024 Does your family have a hard time getting a ride to doctors visits? (Household - for ages 0-17 years) Not on file 02/28/2024 Has lack of transportation k ept you from medical appointments, meetings, work, or from getting things needed for daily living? Check all that apply. (Adult - for ages 18 years and over) Not on file 02/28/2024 Do you (or your family) have trouble finding or paying for a ride (transportation)? (Household - for ages 0-17 years) Not on file 02/28/2024 Housing Stability Answer Date Recorded Do you currently live in a s helter or have no steady place to sleep at night? No 02/28/2024 READ ONLY Do you think you a re at risk of becoming homeless? No 02/28/2024 Does your family worry about paying for your home or becoming homeless? (Household - for ages 0-17 years) Not on file 0 02/28/2024 Are you homeless or worried that you might be in the future? (Adult - for ages 18 years and over) Not on file Are you (or your family) nésotr eless or worried that you might be in the future? (Household - for ages 0-17 years) Not on file Food Insecurity Answer Date Recorded Do you need food for this week? Yes 02/28/2024 Are you able to get enough f ood for your family? (Household - for ages 0-17 years) Not on file 02/28/2024 Does your family need food t his week? (Household - for ages 0-17 years) Not on file 02/28/2024 Do you always have enough fo od for your family? (Household - for ages 0-17 years) Not on file 02/28/2024 Sex and Gender Information Value Date Recorded Sex Assigned at Male 04/24/2021 8:55 AM EDT Gender Identity Male 04/24/2021 8:55 AM EDT Sexual Orientation Straight 04/24/2021 8: 55 AM EDT Job Start Date Occupation Industry Not on file Not on file Not on file documented as of this encounter Functional Status Functional Status Response Date of Assess ment Are you deaf or do you have serious difficulty h earing? No 09/30/2023 Are you blind or do you have serious difficulty seeing, even when wearing glasses? No 09/30/2023 Do you have serious difficul ty walking or climbing stairs? (5 years old or older) No 09/30/2023 Do you have difficulty dress ing or bathing? (5 years old or older) No 09/30/2023 Because of a physical, menta l, or emotional condition, do you have difficulty doing errands alone such as visiting a doctor s office or shopping? (15 years old or older) No 09/30/20 Cognitive Status Response Date of Assessm ent Because of a physical, menta l, or emotional condition, do you have serious difficulty concentrating, remembering, or making decisions? (5 years old or older) No 09/30/2023 documented as of this encounter Progress Notes * Roe Galarza MD - 04/06/2024 3:23 PM EDT Hematology/Oncology Outpatient Clinic Note [facility] HEMATOLOG[facility] - [facility] After connecting to the patient via telephone, the patient was identified by name and date of . Patient was then informed that this was a telephone call only visit. The patient agreed to participate. Visit Disposition: Routine follow-up Total call duration was 7 minutes. Name: Naveen Stout Date: 03/11/24 CHIEF COMPLAINT: Naveen Stout is a 83 year old male here today for f/u visit. HISTORY OF PRESENT ILLNESS: 83-year-old male, with history of hypertension, hyperlipidemia, degenerative disc disease of the cervical and lumbar areas, GERD, hiatal hernia, sleep apnea, chronic right shoulder pain, restless legs, postlaminectomy syndrome, chronic right sided thoracic back pain, hip pain on the right, nocturia, status post insertion of spinal cord stimulator, hearing loss, iron deficiency anemia, here for evaluation of iron deficiency anemia. CBC on May 14 showed a hemoglobin of 12.5 which is slightly low at the lower limit of normal of 14. There was macrocytosis with an MCV of 101.8. Iron screen showed a transferrin saturation of 10%, TIBC was normal at 355 and iron was 36 which was low with lower limit of normal 45. Cscope 10/10/20 Has FREDI - using CPAP consistently Impression: - The examined portion of the ileum was normal. - Diverticulosis in the sigmoid colon. - Non-bleeding internal hemorrhoids. - The examination was otherwise normal on direct and retroflexion views. - No specimens collected. Recommendation: - Discharge patient to home (with escort). - Patient has a contact number available for emergencies. The signs and symptoms of potential delayed complications were discussed with the patient. Return to normal activities tomorrow. Written discharge instructions were provided to the patient. - Resume previous diet. - Resume outpt iron therapy as in 2016 - Outpatient video capsule Kulwinder Robbins MD 10/10/2020 11:23:11 AM This report has been signed electronically. EGD: Impression: - Hiatal hernia. - Normal stomach. Biopsied. - Duodenal mucosal atrophy. Biopsied. Recommendation: - Discharge patient to home. - Pathology results will be reviewed with appropriate recommendations to follow. Kulwinder Robbins MD 10/10/2020 12:25:36 PM This report has been signed electronically. Oncology history from patient chart, copied from previous note and updated as appropriate: FH: Denies cancer in the family Denies blood disorders in the family Denies clots in the family Father - [place] - was in 60s SH: Started smoking at 10, quit in 1981 (41). 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 Currently here for f/u visit today. 08/02: Dizziness has gotten better, occasionally gets woozy but not as bad Pain is the same in the back and right knee, no new pain. Fatigue is a little better. Still gets some shakes in the morning, but also better. Mild constipation. 08/28: Patient was in the hospital on August 13 and was discharged on August 17. The patient arrived with increasing dizziness with standing and bending over. Blood pressure was 95/56 with a pulse of 108.The patient passed out in the middle of the night 10 days prior to admission. His blood pressure medicines including amlodipine and atenolol were stopped recently. 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 It was recommended that he have a repeat exam as an outpatient and also thevideo capsule endoscopy. He received 1 dose of intravenous iron in the hospital. His hemoglobin haddropped down to 7.6. The patient returned to the ER on August 22. Blood pressure had lowered down to the 70s systolic. He was not on blood pressure medications. Hemoglobin was seen to be 8.8. He had some tachycardia at times and the patient was discharged with a Zio patch Iron may have extravasated into the arm and the arm swelled. Transferrin saturation drawn on August 22 shows a transferrin saturation of 7%. Ferritin level is normal at 30. However this level is at the lower limit of normal. Feeling very dizzy now. Holding on to furniture when he is walking around. Is in bed about 25% of the day. No shortness of breath. No recent falls. No recent pain. Appetite has been good. Lost 46 lb since January but intentional, trying to lose weight and is on Ozempic now. Heart races at times and hears heartbeat racing at times. Feels heart is racing, 111 no hr. Is feeling like that constantly. Mild bruising on the arms, not getting worse. 1st medications finasteride 5 mg 2nd medications tamsulosin 4 mg both medications were stopped 2 weeks ago 09/23: Findings & Specimens: There was a small hiatal hernia (Hill 2), otherwise the esophagus was normal. The entire examined stomach was normal. The duodenal bulb and D2 were normal. There were at least a dozen non bleeding small AVM's throughout the distal duodenum and examined jejunum. Five of these were ablated; two clips placed on ablation sites. Pictures lost due to computer error. 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 Recommendation: Discharge pt to floor. Observe overnight, and plan for discharge home if hgb stable. Recommend IV iron prior to discharge. He will need periodic iron infusions and monitoring of his hgb; can consider octreotide if bleeding is persistent and refractory. Ingrid Santiago MD 08/16/2023 2:49:09 PM Findings & Specimens: The perianal and digital rectal examinations were normal. Scattered small-mouthed diverticula were found in the entire colon. The exam was otherwise without abnormality on direct and retroflexion views. Impression: - Diverticulosis in the entire examined colon. - The examination was otherwise normal on direct and retroflexion views. - No specimens collected. Recommendation: - Discharge patient to home. Michel Markham MD 09/19/2023 10:15:31 AM No pain now. No dizziness now. Energy is good. No issues with appetite, no WL 11/15: 10/01: Enteroscopy Findings & Specimens: The examined esophagus was normal. The entire examined stomach was normal. There was no evidence of significant pathology in the duodenal bulb and in the second portion of the duodenum. Multiple angioectasias with bleeding were found in the third portion of the duodenum and in the fourth portion of the duodenum. Coagulation for hemostasis using argon plasma at 0.8 liters/minute and 20 lacey was successful. Estimated blood loss was minimal. A hemostatic clip from a prior treatment of AVMs was noted within the 3rd portion of the duodenum. Multiple angioectasias with bleeding were found in the proximal jejunum. Coagulation for hemostasis using argon plasma at 0.8 liters/minute and 20 lacey was successful. Estimated blood loss was minimal. Impression: - Normal esophagus. - Normal stomach. - Normal duodenal bulb and second portion of the duodenum. 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 Treated with argon plasma coagulation (APC). - Multiple bleeding angioectasias in the jejunum. Treated with argon plasma coagulation (APC). - No specimens collected. In ED/adm to hospital from 09/30 to 10/02 - pt had upper endoscopy and push enteroscopy 10/01. Multiple avms treated with APC. On Omeprazole. Repeat enteroscopy 8-12 weeks for re-treatment. On 11/11 felt dyspneic, weak, tired, lightheaded, dizzy -- hgb was 6.4, got 1 unit in infusion clinic. Had bad pain behind the shoulder blades, has resolved. Arr for IV iron Will message Dr. Carrillo and Dr. Weston. Still feeling tired and weak. No blood in the stool or black stools. No pain. Appetite and eating are ok. Gained 7 lb since around [place]. Can walk a block and then has to stop mainly due to hip pain. A little winded if up the steps. Both legs appear more swollen. No other bleeding or bruising. Right upper arm swelling. 01/07: No pain now Had been dizzy and stopped flomax. Still feeling very dizzy. Neither blood or iron helped with the dizziness. Energy is somewhat better than it was. Appetite/eating are ok. Weight down 42 lb since January,. Not much leg swelling today, no arm swelling. 03/11: No pain. Energy is good. Appetite is excellent Stopped tamsulosin, dizziness got better. Urinating a lot more often. 04/06: No pain now except R knee pain. Energy is ok. Appetite is good. Weight is 230 Current Outpatient Medications Medication Sig Dispense Refill Acetaminophen 500 MG Oral Tablet (TYLENOL) TAKE TWO TABLETS BY MOUTH PRN Folic Acid 400 MCG Oral Tablet Take 1 Tablet by mouth in the morning. 90 Tablet 2 Polyethylene Glycol 3350 17 GM Oral Packet (MiraLax) Take 1 Packet by mouth daily as needed for Constipation. CPAP every night at bedtime. Iron 240 (27 Fe) MG Oral Tablet Take by mouth. 2 tablets every other day Finasteride 5 MG Oral Tablet (Proscar) Take 1 Tablet by mouth in the morning. amLODIPine Besylate 5 MG Oral Tablet (Norvasc) Take 1 Tablet by mouth in the morning. 90 Tablet 1 Famotidine 20 MG Oral Tablet (Pepcid) TAKE ONE TABLET BY MOUTH IN THE MORNING AND BEFORE BEDTIME. 200 Tablet 2 Octreotide Acetate 10 MG Intramuscular Kit (SandoSTATIN LAR [place]) Inject 10 mg into a large muscleevery month. (Patient taking differently: Inject 10 mg into a large muscle Every Month. 12/23/23 getting first shot tomorrow 12/23) 3 Kit 3 Atorvastatin Calcium 20 MG Oral Tablet (Lipitor) TAKE ONE TABLET BY MOUTH EVERY MORNING 90 Tablet 3 Omeprazole 40 MG Oral Capsule Delayed Release (PriLOSEC) Take 1 Capsule by mouth daily before breakfast. 90 Capsule 3 rOPINIRole HCl 0.5 MG Oral Tablet (Requip) Take 1 Tablet by mouth at bedtime. 30 Tablet 5 DULoxetine HCl 60 MG Oral Capsule Delayed Release Particles (Cymbalta) Take 2 Capsules by mouth in the morning. 200 Capsule 1 No current facility-administered medications for this visit. REVIEW OF SYSTEMS: 12 point ROS performed and negative with exception of what is mentioned in the hpi. OBJECTIVE: There were no vitals filed for this visit. Wt Readings from Last 5 Encounters: 03/16/24 106.1 kg (233 lb 12.8 oz) 03/13/24 106.5 kg (234 lb 12.8 oz) 03/11/24 106.8 kg (235 lb 8 oz) 01/08/24 105.4 kg (232 lb 6.4 oz) 01/07/24 105.8 kg (233 lb 4.8 oz) PHYSICAL EXAM: Phone visit LABS: Results for orders placed or performed in visit on 04/03/24 COMPREHENSIVE METABOLIC PANEL Result Value Ref Range BUN 23 (H) 6 - 20 mg/dL Creatinine 1.1 0.6 - 1.2 mg/dL Estimated Glomerular Filtration Rate 68 >=60 mL/min Sodium 138 135 - 146 mmol/L Potassium 4.0 3.5 - 5.1 mmol/L Chloride 103 98 - 107 mmol/L CO2 24 22 - 32 mmol/L Anion Gap 11 7 - 15 mmol/L Glucose 196 (H) 70 - 120 mg/dL Albumin 4.2 3.8 - 5.0 g/dL AST 21 10 - 50 U/L Alkaline Phosphatase 101 35 - 130 U/L Bilirubin, Total 0.2 <=1.2 mg/dL Calcium 8.9 8.4 - 10.2 mg/dL Protein 6.8 6.0 - 8.3 g/dL ALT 22 10 - 50 U/L TYPE AND SCREEN Result Value Ref Range ABO A Rh Positive Red Blood Cell Antibody Screen Negative Specimen Expiration Date 04/06/2024 23:59 IRON SCREEN, INCLUDING TIBC Result Value Ref Range Iron 58 45 - 176 ug/dL Iron Binding Capacity 379 250 - 425 ug/dL Transferrin Saturation Percent 15 15 - 55 % FERRITIN Result Value Ref Range Ferritin 348 30 - 400 ng/mL CBC Result Value Ref Range WBC 5.18 4.00 - 10.80 K/uL RBC 3.46 4.50 - 5.25 M/uL HGB 10.2 (L) 14.0 - 16.8 g/dL HCT 34.2 (L) 40.0 - 48.4 % MCV 98.8 82.0 - 99.5 fL MCH 29.5 27.0 - 34.0 pg MCHC 29.8 32.0 - 36.0 g/dL RDW 20.2 11.5 - 15.5 % PLT 376 140 - 400 K/uL MPV 9.9 6.6 - 11.1 fL nRBCs 0 <=0 /100 WBCs DIFFERENTIAL, AUTOMATED Result Value Ref Range WBC 5.18 4.00 - 10.80 K/uL Neutrophils % 70.1 40.0 - 75.0 % Lymphocytes % 18.1 18.0 - 42.0 % Monocytes % 7.1 1.0 - 11.0 % Eosinophils % 3.1 0.0 - 6.0 % Basophils % 1.2 0.0 - 2.0 % Immature Granulocytes % 0.4 0.0 - 2.0 % Absolute Neutrophils 3.63 1.80 - 7.70 K/uL Absolute Lymphocytes 0.94 (L) 1.00 - 4.80 K/ul Absolute Monocytes 0.37 0.00 - 1.10 K/uL Absolute Eosinophils 0.16 0.00 - 0.70 K/uL Absolute Basophils 0.06 0.00 - 0.20 K/uL Absolute Immature Granulocytes 0.02 0.00 - 0.20 K/uL IMPRESSION/PLAN: 83-year-old male, with history of hypertension, hyperlipidemia, degenerative disc disease of the cervical and lumbar areas, GERD, hiatal hernia, sleep apnea, chronic right shoulder pain, restless legs, postlaminectomy syndrome, chronic right sided thoracic back pain, hip pain on the right, nocturia, status post insertion of spinal cord stimulator, hearing loss, iron deficiency anemia, here for evaluation of iron deficiency anemia. 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 Had 2nd push enteroscopy. 12/04 - angioectasias were treated with APC If new blood in the stool, melena or feels much worse, short of breath, should go to ED Sandostatin 10 mg monthly injections to reduce GI bleeding Check cbc monthly Check iron studies, ferritin every other 2 mo #folic acid deficiency folic acid 400 mcg daily #high plt in past Plt ct of 376 as of 04/03/24 neg myeloprolif panel #upcoming R knee surgery No hematologic objections to proceeding with surgery as pt is not actively bleeding, iron studies have normalized an hemoglobin is over 10. If pt is bleeding or develops black stools should check cbcstat, and transfuse if hgb <7 or actively bleeding and less than 10. While I do not anticipate this happening there is some non zero risk of it occurring. I had a discussion with Naveen Stout regarding the plan of care, treatment and other issues. RTC 3 mo Roe Galarza MD 9944 based on criteria documented in this encounter Plan of Treatment Upcoming Encounters Date Type Department Care Team (Late st Contact Info) Description 04/07/2024 4:00 PM EDT Telemedicine Hematology Oncology, [place] [address] [place] [address] Roe Galarza MD [address] [place] [phone] 05/08/2024 9:00 AM EDT Laboratory Laboratory, [facility] [address] [place] [phone] [facility], Lab [address] [place] [address] 06/18/2024 9:30 AM EDT Office Visit Gastroenterology, [facility] [address] [facility] [place] [phone] Marlene Bruno PA-C [address] [place] [address] 08/12/2024 12:20 PM EDT Office Visit [facility], [place] [address] [place] [phone] Praveena Banuelos CRNP [address] [place] [address] 03/19/2025 9:00 AM EDT Nurse Only Ancillary 1st Floor, [place] [address] [place] [address] [place], [facility] [address] [place] [address] Scheduled Orders Name Type Priority Associated Diagnoses Orde r Schedule IRON SCREEN, INCLUDING TIBC Lab Routine Iron deficiency anemia due to chronic blood loss Every 2 Months for 6 Occurrences starting 04/06/2024 until 04/06/2025 FERRITIN Lab Routine Iron deficiency anemia due to chronic blood loss Every 2 Months for 6 Occurrences starting 04/06/2024 until 04/06/2025 Health Maintenance Due Date Last Done Comments COVID-19 Vaccine ( season) 2023 12/17/2020, 11/18/2020 Depression Screening 03/13/2025 03/13/2024 GFR 04/03/2025 04/03/2024, 02/12, 03/04/2024, Additional history exists Albumin/Creatinine Ratio 05/20/2026 023, 05/14/2022, 07/15/2017 DTaP,Tdap,and Td Vaccines (3 - Td or Tdap) 12/23/2030 12/23/2020, 05/17/2015 Pneumococcal Vaccine: 65+ Years Completed 07/27/2019, 01/10/2015, 04/22/2008 Zoster Vaccines Completed 03/23/2021, 07/14, 11/04/2014 Influenza Vaccine (FLU shot) Completed 09/2023, 07/24/2022, 08/28/2021, Additional history exists GARDASIL-HPV IMMUNIZATION SERIES Aged Out No longer eligible based on patient's age to complete this topic Hepatitis B Aged Out No longer eligi ble based on patient's age to complete this topic MENINGOCOCCAL (MENACTRA/MENVEO) Aged Out No longer eligible based on patient's age to complete this topic documented as of this encounter Medical Devices Implanted Type Area Valve Technician Device Identifier Shelf Expiration Date Model / Serial / Lot Love Bio Composite - [id number] Implanted:Qty: 2 on 04/29/2017 by Daquan Ang MD at OR [facility] Left: Shoulder [employer] 12/11/2018 AR-1927BC F / / [id number] [place] Pushlock 4.5x24mm - [id number] Implanted:Qty: 2 on 04/29/2017 by Daquan Ang MD at OR [facility] Left: Shoulder [employer] 12/11/2018 AR-1922BC / / [id number] Clik X Mri Ancor Implanted:Qty: 1 on 01/12/2019 by Saige Rivera MD at OR [facility] N/A: Back [employer] : PAIN MGMT 11/17/2020 NY-4319 / / [id number] Avista Mri 56 Cm 8 Contact Lead Kit Implanted:Qty: 1 on 01/12/2019 by Saige Rivera MD at OR [facility] N/A: Back [employer] : PAIN MGMT 10/30/2020 NY-2408-5 6 [id number] / Avista Mri 56 Cm 8 Contact Lead Kit Implanted:Qty: 1 on 01/12/2019 by Saige Rivera MD at OR [facility] N/A: Back [employer] : PAIN MGMT 10/30/2020 SC-2408-5 [id number] / Generator Implantable Pulse - [id number] Implanted:Qty: 1 on 01/12/2019 by Saige Rivera MD at OR [facility] N/A: Back [employer] : PAIN MGMT 10/16/2020 [id number] / / Duraclip 16mm Xlg Repostn - [id number] Implanted:Qty: 1 on 08/16/2023 by Ingrid Santiago MD at ENDOSCOPY [facility] [employer] [id number] 02/03/2025 DC023 5W / / [id number] Duraclip 16mm Xlg Repostn - [id number] Implanted:Qty: 1 on 08/16/2023 by Ingrid Santiago MD at ENDOSCOPY [facility] [employer] [id number] 04/15/2024 DC023 5W / / [id number] Catheter Hemostatic 235cm 2.8mm 11mm Cl[address] Latexfree - [id number] Implanted:Qty: 1 on 12/04/2023 by Donna Parekr MD at OR [facility] [employer] : ENDOSCOPY [id number] 12/30/2025 [id number] / / [id number] Catheter Hemostatic 235cm 2.8mm 11mm [address] Latexfree - [id number] Implanted:Qty: 1 on 12/04/2023 by Donna Parker MD at OR [facility] [employer] : ENDOSCOPY [id number] 12/30/2025 [id number] / / [id number] Catheter Hemostatic 235cm 2.8mm 11mm Cl[address] Latexfree - [id number] Implanted:Qty: 1 on 12/04/2023 by Donna Parker MD at OR [facility] SCI[employer] : ENDOSCOPY [id number] 12/30/2025 [id number] / / [id number] documented as of this encounter Visit Diagnoses Diagnosis Iron deficiency anemia due to chronic blood loss- Primary Iron deficiency anemia secondary to blood loss (chronic) Folic acid deficiency Other B-complex deficiencies documented in this encounter Advance Directives * Full Code (Latest Code Status on File) Date Activated Date Inactivated Comments 09/30/2023 7:34 PM 10/02/2023 3:58 PM This order reflects the patients wishes and were consensually agreed upon. Question Answer Comments Discussion of Advance Directives occurred with: Patient * Full Code Date Activated Date Inactivated Comments 08/13/2023 5:01 PM 08/17/2023 6:24 PM This order reflects the patients wishes and were consensually agreed upon. Question Answer Comments Discussion of Advance Directives occurred with: Patient Care Teams Waterworks Pump Station Operator Relationship Specialty Start Date End Date Praveena Banuelos CRNP [address] [place] [address] PCP - General Nurse Practitioner 05/01/23 documented as of this encounter
--- OUTSIDE RECORDS SUMMARY | 2024-04-08 08:57 | External Medical Summary | Summary of Care ---
Author Name Unknown Organization [facility] Address [address] [place] [address] Phone [phone] Care Team Providers Care Plant Protection Supervisor Name Role Phone Praveena Banuelos Primary Care Provider [phone] Reason for Visit * Reason Onset Date Comments Appointment 04/03/2024 [place] Encounter Details Date Type Department Care Team (Late st Contact Info) Description 04/03/2024 Telephone Hematology Oncology, [place] [address] [place] [address] Roe Galarza MD [address] [place] [phone] Appointment ([place]) Allergies No known active allergiesdocumented as of this encounter (statuses as of 04/03/2024) Medications Medication Sig Dispensed Refills Start Date [...] as of this encounter (statuses as of 04/03/2024) Active Problems Problem Noted Date Diagnosed Date Dizziness 12/23/2023 Gastrointestinal hemorrhage 10/01/2023 AVM (arteriovenous malformation) of duodenum, 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 Sacroiliitis 08/30/2023 Tachycardia 08/28/2023 Symptomatic anemia 08/13/2023 Orthostatic hypotension 08/13/2023 Hearing loss 10/16/2021 S/P insertion of spinal cord stimulator 08/28/20 21 Overview: 08/28/2021 L flank subcut device (working) Monitored by [employer] Last Assessment & Plan: Monitored by [employer] rep Nocturia 04/24/2021 Last Assessment & Plan: [...] as of this encounter (statuses as of 04/03/2024) Resolved Problems Problem Noted Date Diagnosed Date [...] as of this encounter (statuses as of 04/03/2024) Immunizations Name Administration Dates Next Due COVID-19 [...] money to buy more. Never true 02/28/20 Within the past 12 months, t he [...] on file Are you (or your family) néstor eless or worried that you might be [...] No 09/30/2023 documented as of this encounter Miscellaneous Notes * Telephone Encounter - Mamie Aguilar OSA - 04/03/2024 4:45 PM EDT Patient has been scheduled on Dr Olivares schedule for 04-06-2024 @ 5 pm. Called patient, spoke with Laura () made aware of date/time/(Laura started to cry. She was happy that the appt was schedule for a telephone call) [phone] [place] [phone] Laura () Mamie * Telephone Encounter - Sarah Carter OSA - 04/03/2024 4:25 PM EDT Patient Laura is calling, he is scheduled for a telephone call appt with Dr Olivares on SaturdayApril 07. Patient is scheduled to have a total knee surgery with Dr Burnette [facility] on SaturdayApril 08. Since patient is anemic they want Dr Galarza approval surgery by SaturdayApril 06 or they will cancelhis surgery. Is there any way to Dr Galarza to call and talk to DR Burnette on Saturday? Please call her back to advise. documented in this encounter Plan of Treatment Upcoming Encounters Date Type Department Care Team (Late st Contact Info) Description 04/06/2024 5:00 PM EDT Telemedicine Hematology Oncology, [place] [address] [place] [address] Roe Galarza MD [address] [place] [phone] 04/07/2024 4:00 PM EDT Telemedicine Hematology Oncology, [place] [address] [place] [address] Roe Galarza MD [address] [place] [phone] 05/08/2024 9:00 AM EDT Laboratory Laboratory, [facility] [address] [place] [phone] [facility], Lab [address] [place] [address] 06/18/2024 9:30 AM EDT Office Visit Gastroenterology, [facility], [place] [address] [facility] [place] [phone] Marlene Bruno PA-C [address] [place] [address] 08/12/2024 12:20 PM EDT Office Visit [facility], [place] [address] [place] [phone] Praveena Banuelos CRNP [address] [place] [address] 03/19/2025 9:00 AM EDT Nurse Only Ancillary 1st Floor, [place] [address] [place] [address] [place], [facility] 2 [address] [place] [address] Health Maintenance Due Date Last Done Comments COVID-19 Vaccine (2022- season) 2023 12/17/2020, 11/18/2020 Depression Screening 03/13/2025 [...] this encounter Medical Devices Implanted Type Area Machine Feeder Floorperson Device Identifier Shelf Expiration Date Model / Serial / Lot KarlGhostery Bio Composite - [id number] Implanted:Qty: 2 on 04/29/2017 by Daquan Ang MD at OR [facility] Left: Shoulder [employer] 12/11/2018 AR-1927BC F / / [id number] [place] Pushlock 4.5x24mm - [id number] Implanted:Qty: 2 on 04/29/2017 by Daquan Ang MD at OR [facility] Left: Shoulder [employer] 12/11/2018 AR-1922BC / / [id number] Clik X Mri Ancor Implanted:Qty: 1 on 01/12/2019 by Saige Rivera MD at OR [facility] N/A: Back [employer] : PAIN MGMT 11/17/2020 SC-4319 / / [id number] Avista Mri 56 Cm 8 Contact Lead Kit Implanted:Qty: 1 on 01/12/2019 by Saige Rivera MD at OR [facility] N/A: Back [employer] : PAIN MGMT 10/30/2020 SC-2408-5 6 / [id number] / Avista Mri 56 Cm 8 Contact Lead Kit Implanted:Qty: 1 on 01/12/2019 by Saige Rivera MD at OR [facility] N/A: Back [employer] : PAIN MGMT 10/30/2020 SC-2408-5 6 / [id number] / Generator Implantable Pulse - [id number] Implanted:Qty: 1 on 01/12/2019 by Saige Rivera MD at OR [facility] N/A: Back [employer] : PAIN MGMT 10/16/2020 [id number] / / Duraclip 16mm Xlg Repostn - [id number] Implanted:Qty: 1 on 08/16/2023 by Ingrid Santiago MD at ENDOSCOPY [facility] [employer] [id number] 02/03/2025 DC023 5W / / [id number] Duraclip 16mm Xlg Repostn - [id number] Implanted:Qty: 1 on 08/16/2023 by Ingrid Santiago MD at ENDOSCOPY [facility] [employer] [id number] 04/15/2024 DC023 5W / / [id number] Catheter Hemostatic 235cm 2.8mm 11mm [address] Latexfree - [id number] Implanted:Qty: 1 on 12/04/2023 by Donna Parker MD at OR [facility] [employer] : ENDOSCOPY [id number] 12/30/2025 [id number] / / [id number] Catheter Hemostatic 235cm 2.8mm 11mm [address] Latexfree - [id number] Implanted:Qty: 1 on 12/04/2023 by Donna Parker MD at OR [facility] [employer] : ENDOSCOPY [id number] 12/30/2025 [id number] / / [id number] Catheter Hemostatic 235cm 2.8mm 11mm [address] Latexfree - [id number] Implanted:Qty: 1 on 12/04/2023 by Donna Parker MD at OR [facility] [employer] : ENDOSCOPY [id number] 12/30/2025 [id number] / / [id number] documented as of this encounter Advance Directives * Full Code [...] Advance Directives occurred with: Patient Care Teams Plant Protection Supervisor Relationship Specialty Start Date End Date Praveena Banuelos CRNP [address] [address] PCP - General Nurse Practitioner 05/01/23 documented as of this encounter
--- OUTSIDE RECORDS SUMMARY | 2024-04-08 08:58 | External Medical Summary ---
Author Name Unknown Address Unknown Organization K1F:[facility] - [address] [facility]. [place] [address] Laboratory Report Ordering Provider Test Date Status BELIA DELGADO 04/03/2024 07:54:57 Final Observation Date Value Abnormality Reference (Units ) Status BUN 04/03/2024 07:54:57 23 Above high normal 6-20 (mg/dL) Final Creatinine 04/03/2024 07:54:57 1.1 0.6-1.2 (mg/dL) Final Glomerular filtration rate/1.73 sq M.predicted [Volume Rate/Area] in Serum, Plasma or Blood by Creatinine-based formula (CKD-EPI) 04/03/2024 07:54:57 68 >=60 (mL/min) Final eGFR is calculated based on the CKD-EPI 2020 equation Sodium 04/03/2024 07:54:57 138 135-146 (m mol/L) Final Potassium 04/03/2024 07:54:57 4.0 3.5-5.1 (m mol/L) Final Cl 04/03/2024 07:54:57 103 98-107 (mm ol/L) Final CO2 04/03/2024 07:54:57 24 22-32 (mmo l/L) Final Anion gap 04/03/2024 07:54:57 11 7-15 (mmol /L) Final Glucose 04/03/2024 07:54:57 196 Above high normal 70 -120 (mg/dL) Final Albumin 04/03/2024 07:54:57 4.2 3.8-5.0 (g /dL) Final AST (Aspartate aminotransferase) 04/03/2024 07:54:57 21 10-50 (U/L) Fin al Alk Phos 04/03/2024 07:54:57 101 35-130 (U/ L) Final Bilirubin, Total 04/03/2024 07:54:57 0.2 <=1 .2 (mg/dL) Final Calcium 04/03/2024 07:54:57 8.9 8.4-10.2 ( mg/dL) Final Protein 04/03/2024 07:54:57 6.8 6.0-8.3 (g /dL) Final ALT (Alanine aminotransferase) 04/03/2024 07:54:57 22 10-50 (U/L) Liam nicholas Performing Location LABORATORY [facility] - [facility] [place] [address]
--- OUTSIDE RECORDS SUMMARY | 2024-04-08 08:58 | External Medical Summary | Summary of Care ---
Author Name Unknown Organization [facility] Address [address] [facility] [place] [address] Phone [phone] Care Team Providers Care Psychiatric Rn Name Role Phone Praveena Banuelos Primary Care Provider +1- [phone] Encounter Details Date Type Department Care Team (Late st Contact Info) Description 03/24/2024 Orders Only [facility] 21 [facility] [place] [phone] Praveena Banuelos CRNP [facility] [address] Allergies No known active allergiesdocumented as of this encounter (statuses as of 03/24/2024) Medications Medication Sig Dispensed Refills Start Date [...] as of this encounter (statuses as of 03/24/2024) Active Problems Problem Noted Date Diagnosed Date Dizziness 12/23/2023 Gastrointestinal hemorrhage 10/01/2023 AVM (arteriovenous malformation) of duodenum, 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 Right SI joint fusion Chronic right-sided thoracic back pain 1 Postlaminectomy syndrome, lumbar region 09/14/20 19 RLS (restless legs syndrome) 06/19/2018 Overview: 04/24/2021 [...] as of this encounter (statuses as of 03/24/2024) Resolved Problems Problem Noted Date Diagnosed Date [...] as of this encounter (statuses as of 03/24/2024) Immunizations Name Administration Dates Next Due COVID-19 [...] money to get more. Never true 02/28/2024 Sex and Gender Information Value Date [...] No 09/30/2023 documented as of this encounter Plan of Treatment Upcoming Encounters Date Type Department Care Team (Late st Contact Info) Description 03/27/2024 8:30 AM EDT Hem/Onc Treatment Hematology/Oncology Treatment, [address], [place] [address] [facility], Chair2 Hem Onc [address] [place] [address], [place] [address] 04/01/2024 8:00 AM EDT Hem/Onc Treatment Hematology/Oncology Treatment, [address], [place] [address] [facility], Chair2 Hem Onc [address] [place] [address], [place] [address] 04/03/2024 8:00 AM EDT Laboratory Laboratory, [address], [place] [phone] [facility], Lab [address] [place] [address] 04/07/2024 4:00 PM EDT Telemedicine Hematology Oncology, [place] [address] [address] [place] [address] Roe Galarza MD [address] [place] [address] [place] [phone] 05/08/2024 9:00 AM EDT Laboratory Laboratory, [address] [phone] [facility], Lab [address] [place], [place] [address] [address] 06/18/2024 9:30 AM EDT Office Visit Gastroenterology, [facility] [phone] Marlene Bruno [facility]C [facility] [address] 08/12/2024 12:20 PM EDT Office Visit [facility] [place] [address] [place] [phone] Praveena Banuelos CRNP [address] [place] [address] 03/19/2025 9:00 AM EDT Nurse Only Ancillary 1st Floor, [place] 21 [place] [phone] [place], [facility] Wellness 2 [address] [place] [phone] Health Maintenance Due Date Last Done Comments COVID-19 Vaccine (2022- season) 2023 12/17/2020, 11/18/2020 GFR 03/06/2025 03/06/2024, 02/12, 12/19/2023, Additional history exists Depression Screening 03/13/2025 03/13/2024 Albumin/Creatinine Ratio 05/20/2026 023, 05/14/2022, 07/15/2017 DTaP,Tdap,and [...] this encounter Medical Devices Implanted Type Area Risk Lead Device Identifier Shelf Expiration Date Model / Serial / Lot KarlCraft Coffeetea Bio Composite - [id number] Implanted:Qty: 2 on 04/29/2017 by Daquan Ang MD at OR [facility] Left: Shoulder [employer] 12/11/2018 AR-1927BC F / / [id number] [place] Pushlock 4.5x24mm - [id number] Implanted:Qty: 2 on 04/29/2017 by Daquan Ang MD at OR [facility] Left: Shoulder [employer] 12/11/2018 AR-1922BC / / [id number] Clik X Mri Ancor Implanted:Qty: 1 on 01/12/2019 by Saige Rivera MD at OR [facility] N/A: Back [employer] : PAIN MGMT 11/17/2020 SC-4319 / / [id number] Avista Mri 56 Cm 8 Contact Lead Kit Implanted:Qty: 1 on 01/12/2019 by Saige Rivera MD at OR [facility] N/A: Back [employer] : PAIN MGMT 10/30/2020 SC-2408-5 6 / [id number] / Avista Mri 56 Cm 8 Contact Lead Kit Implanted:Qty: 1 on 01/12/2019 by Saige Rivera MD at OR [facility] N/A: Back [employer] : PAIN MGMT 10/30/2020 SC-2408-5 6 / [id number] / Generator Implantable Pulse - [id number] Implanted:Qty: 1 on 01/12/2019 by Saige Rivera MD at OR [facility] N/A: Back [employer] : PAIN MGMT 10/16/2020 [id number] / / Duraclip 16mm Xlg Repostn - [id number] Implanted:Qty: 1 on 08/16/2023 by Ingrid Santiago MD at ENDOSCOPY [employer] [id number] 02/03/2025 DC023 5W / / [id number] Duraclip 16mm Xlg Repostn - [id number] Implanted:Qty: 1 on 08/16/2023 by Ingrid Santiago MD at ENDOSCOPY [employer] [id number] 04/15/2024 DC023 5W / / [id number] Catheter Hemostatic 235cm 2.8mm 11mm Clip [address] Latexfree - [id number] Implanted:Qty: 1 on 12/04/2023 by Donna Parker MD at OR [facility] [employer] : ENDOSCOPY [id number] 12/30/2025 [id number] / / [id number] Catheter Hemostatic 235cm 2.8mm 11mm Cl[address] Latexfree - [id number] Implanted:Qty: 1 on 12/04/2023 by Donna Parker MD at OR [facility] [employer] : ENDOSCOPY [id number] 12/30/2025 [id number] / / [id number] Catheter Hemostatic 235cm 2.8mm 11mm [address] Latexfree - [id number] Implanted:Qty: 1 on 12/04/2023 by Donna Parker MD at OR [facility] [employer] : ENDOSCOPY [id number] 12/30/2025 [id number] / / [id number] documented as of this encounter Procedures Procedure Name Priority Date/Time Associated Diagnosis Comments XR CHEST 2 VIEWS Routine 03/04/2024 CHEMISTRY-OUTSIDE Routine 03/04/2024 CHEMISTRY-OUTSIDE Routine 03/04/2024 documented in this encounter Results * (ABNORMAL) CHEMISTRY-OUTSIDE (03/04/2024) Not all results display below - see scan for full detail OUTSIDE LAB (SEE SCANNED REPORT) Comment:[facility] CREATININE-OUTSID E LAB 1.20 0.6 - 1.4 MG/DL OUTSIDE LAB (SEE SCANNED REPORT) EGFR-OUTSIDE LAB 56.4 ML/MIN OUT SIDE LAB (SEE SCANNED REPORT) POTASSIUM-OUTSIDE LAB 5.0 3.5 - 5.1 MMOL OUTSIDE LAB (SEE SCANNED REPORT) GLUCOSE-OUTSIDE LAB 100(A) 70 - 99 MG/DL OUTSIDE LAB (SEE SCANNED REPORT) HOURS FASTING OUTSID E LAB (SEE SCANNED REPORT) TRIGLYCERIDES-OUT SIDE LAB OUTSIDE LAB (SEE SCANNED REPORT) CHOLESTEROL-OUTSI DE LAB OUTSIDE LAB (SEE SCANNED REPORT) HDL-OUTSIDE LAB OUTS TERESA LAB (SEE SCANNED REPORT) CHOL/HDL RATIO-OUTSIDE LAB OUTSIDE LA B (SEE SCANNED REPORT) LDL (CALCULATED)-OUTS TERESA LAB OUTSIDE LAB (SEE SCANNED REPORT) LDL (DIRECT MEASURE)-OUTSIDE LAB OUTSIDE LAB (SEE SCANNED REPORT) HEMOGLOBIN, U5I-NCHJRKS LAB OUTSIDE LAB (SEE SCANNED REPORT) PHOSPHORUS-OUTSID E LAB OUTSIDE LAB (SEE SCANNED REPORT) PTH-OUTSIDE LAB OUTS TERESA LAB (SEE SCANNED REPORT) MICROALBUMIN RATIO-OUTSIDE LAB OUTSIDE LA B (SEE SCANNED REPORT) PROTEIN, UA-OUTSIDE LAB OUTSIDE LAB (SEE SCANNED REPORT) HGB OUTSIDE LA B (SEE SCANNED REPORT) 03/04/2024 uLther Burnette MD LABORATORY Performing Organization Address City/[facility] Co de Phone Number OUTSIDE LAB (SEE SCANNED REPORT) * (ABNORMAL) CHEMISTRY-OUTSIDE (03/04/2024) Not all results display below - see scan for full detail OUTSIDE LAB (SEE SCANNED REPORT) Comment:[facility] CREATININE-OUTSID E LAB OUTSIDE LAB (SEE SCANNED REPORT) EGFR-OUTSIDE LAB OUT SIDE LAB (SEE SCANNED REPORT) POTASSIUM-OUTSIDE LAB OUTSIDE LAB (SEE SCANNED REPORT) GLUCOSE-OUTSIDE LAB OUTSIDE LAB (SEE SCANNED REPORT) HOURS FASTING OUTSID E LAB (SEE SCANNED REPORT) TRIGLYCERIDES-OUT SIDE LAB OUTSIDE LAB (SEE SCANNED REPORT) CHOLESTEROL-OUTSI DE LAB OUTSIDE LAB (SEE SCANNED REPORT) HDL-OUTSIDE LAB OUTS TERESA LAB (SEE SCANNED REPORT) CHOL/HDL RATIO-OUTSIDE LAB OUTSIDE LA B (SEE SCANNED REPORT) LDL (CALCULATED)-OUTS TERESA LAB OUTSIDE LAB (SEE SCANNED REPORT) LDL (DIRECT MEASURE)-OUTSIDE LAB OUTSIDE LAB (SEE SCANNED REPORT) HEMOGLOBIN, W4W-TRCQJIL LAB OUTSIDE LAB (SEE SCANNED REPORT) PHOSPHORUS-OUTSID E LAB OUTSIDE LAB (SEE SCANNED REPORT) PTH-OUTSIDE LAB OUTS TERESA LAB (SEE SCANNED REPORT) MICROALBUMIN RATIO-OUTSIDE LAB OUTSIDE LA B (SEE SCANNED REPORT) PROTEIN, UA-OUTSIDE LAB OUTSIDE LAB (SEE SCANNED REPORT) HGB 9.6(A) 14 - 18 G/DL OUTSIDE LAB (SEE SCANNED REPORT) 03/04/2024 Luther Burnette MD LABORATORY OUTSIDE LAB (SEE SCANNED REPORT) * XR CHEST 2 VIEWS (03/04/2024) Anatomical Region Laterality Modality Chest Other 03/04/2024 Luther Burnette MD RADIOLOGY (RAD GEN ERAL) documented in this encounter Advance Directives * [...] Advance Directives occurred with: Patient Care Teams Psychiatric Rn Relationship Specialty Start Date End Date Praveena Banuelos CRNP 21 [place] [phone] PCP - General Nurse Practitioner 05/01/23 documented as of this encounter
--- OUTSIDE RECORDS SUMMARY | 2024-04-08 08:58 | External Medical Summary | Summary of Care ---
Author Name Unknown Organization [facility] Address [address] [place] [address] Phone [phone] Care Team Providers Care Patient Registration Clerk Name Role Phone Praveena Banuelos Primary Care Provider +1- [phone] Reason for Visit * Reason Comments Outpatient Testing * Evaluate & Treat - Unlimited Visits (Within 10 days (routine)) - Authorized Specialty Diagnoses / Procedures Referred By Collette wilkins Referred To Contact Hematology/Oncology / Hematology Oncology Diagnoses Symptomatic anemia Sukhjinder Cazares MD [address] [place], [place] [address] [address] Referral ID Status Reason Start Date Expiration Date Visits Requested Visits Authorized [id number] Authorized Specialty Services Required 08/17/2023 08/27/[phone] Encounter Details Date Type Department Care Team (Late st Contact Info) Description 04/03/2024 8:00 AM EDT Laboratory Laboratory, [address] [phone] [facility], Lab [address] [place] [address] Symptomatic anemia; Iron deficiency anemia due to chronic blood loss; Secondary thrombocytosis Allergies No known active allergiesdocumented as of [...] L flank subcut device (working) Monitored by [facility] Last Assessment & Plan: Monitored by [facility] rep Nocturia 04/24/2021 Last Assessment & Plan: [...] 04/07/2024 4:00 PM EDT Telemedicine Hematology Oncology, [facility] [address] [place] [address] Roe Galarza MD [address] [place] [address] Ave [place] [phone] 05/08/2024 9:00 AM EDT Laboratory Laboratory, [facility] 400 [facility] [place] [phone] [facility], Lab [facility] [phone] 06/18/2024 9:30 AM EDT Office Visit Gastroenterology, [facility] 310 [facility] [phone] Marlene Bruno PA-C 310 [facility] [phone] 08/12/2024 12:20 PM EDT Office Visit [facility] 21 [facility] [place] [phone] Praveena Banuelos CRNP 21 [place] [address] 03/19/2025 9:00 AM EDT Nurse Only Ancillary 1st [facility] [place] [facility] [address] [place], [facility] [address] Pending Results Name Type Priority Associated Diagnoses Date /Time TYPE AND SCREEN Lab STAT 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 04/03/2024 7:54 AM EDT IRON SCREEN, INCLUDING TIBC Lab Routine Iron deficiency anemia due to chronic blood loss 04/03/2024 7:54 AM EDT FERRITIN Lab Routine Iron deficiency anemia due to chronic blood loss 04/03/2024 7:54 AM EDT Health Maintenance Due Date Last Done Comments COVID-19 Vaccine ( season) 2023 12/17/2020, 11/18/2020 GFR 03/06/2025 04/03/2024, 02/12, 03/04/2024, Additional history exists Depression Screening 03/13/2025 03/13/2024 [...] this encounter Medical Devices Implanted Type Area Turbine Blade Assembler Device Identifier Shelf Expiration Date Model / Serial / Lot Love Bio Composite - [id number] Implanted:Qty: 2 on 04/29/2017 by Daquan Ang MD at OR [facility] Left: Shoulder [employer] 12/11/2018 AR-1927BC F / / [id number] [place] Pushlock 4.5x24mm - [id number] Implanted:Qty: 2 on 04/29/2017 by Daquan Ang MD at OR [facility] Left: Shoulder [employer] 12/11/2018 AR-1922BC / / [id number] Clik X Mri Ancor Implanted:Qty: 1 on 01/12/2019 by Saige Rivera MD at OR [facility] N/A: Back n[employer]elo : PAIN MGMT 11/17/2020 CO-4319 / / [id number] Avista Mri 56 Cm 8 Contact Lead Kit Implanted:Qty: 1 on 01/12/2019 by Saige Rivera MD at OR [facility] N/A: Back [employer] : PAIN MGMT 10/30/2020 SC-2408-5 6 / [id number] / Avista Mri 56 Cm 8 Contact Lead Kit Implanted:Qty: 1 on 01/12/2019 by Saige Rivera MD at OR [facility] N/A: Back [employer] : PAIN MGMT 10/30/2020 SC-2408-5 6 / [id number] / Generator Implantable Pulse - [id number] Implanted:Qty: 1 on 01/12/2019 by Saige Rivera MD at OR [facility] N/A: Back [employer] : PAIN MGMT 10/16/2020 [id number] / / Duraclip 16mm Xlg Repostn - [id number] Implanted:Qty: 1 on 08/16/2023 by Ingrid Santiago MD at ENDOSCOPY [employer] [id number] 02/03/2025 DC023 5W / / [id number] Duraclip 16mm Xlg Repostn - [id number] Implanted:Qty: 1 on 08/16/2023 by Ingrid Santiago MD at ENDOSCOPY [employer] [id number] 04/15/2024 DC023 5W / / [id number] Catheter Hemostatic 235cm 2.8mm 11mm [address] Latexfree - [id number] Implanted:Qty: 1 on 12/04/2023 by Donna Parker MD at OR [facility] [employer] : ENDOSCOPY [id number] 12/30/2025 [id number] / / [id number] Catheter Hemostatic 235cm 2.8mm 11mm [address] Latexfree - [id number] Implanted:Qty: 1 on 12/04/2023 by Donna Parker MD at OR [facility] [employer] : ENDOSCOPY [id number] 12/30/2025 [id number] / / [id number] Catheter Hemostatic 235cm 2.8mm 11mm [address] Latexfree - [id number] Implanted:Qty: 1 on 12/04/2023 by Donna Parker MD at OR [facility] [employer] : ENDOSCOPY [id number] 12/30/2025 [id number] / / [id number] documented as of this encounter Procedures Procedure Name Priority Date/Time Associated Diagnosis Comments DIFFERENTIAL, AUTOMATED Routine 04/03/2024 7:54 AM EDT Iron deficiency anemia due to chronic blood loss COMPREHENSIVE METABOLIC PANEL STAT 04/03/2024 7:54 AM EDT Symptomatic anemia Iron deficiency anemia due to chronic blood loss CBC Routine 04/03/2024 7:54 AM EDT Iron deficiency anemia due to chronic blood loss CBC Routine 04/03/2024 7:54 AM EDT Iron deficiency anemia due to chronic blood loss documented in this encounter Results * (ABNORMAL) DIFFERENTIAL, AUTOMATED (04/03/2024 7:54 AM EDT) WBC 5.18 4.00 - 10.80 K/uL 04/03/2024 8:03 AM EDT LABORATORY [facility] Neutrophils % 70.1 40.0 - 75.0 % 04/03/2024 8:03 AM EDT LABORATORY [facility] Lymphocytes % 18.1 18.0 - 42.0 % 04/03/2024 8:03 AM EDT LABORATORY [facility] Monocytes % 7.1 1.0 - 11.0 % 04/03/2024 8:03 AM EDT LABORATORY [facility] Eosinophils % 3.1 0.0 - 6.0 % 04/03/2024 8:03 AM EDT LABORATORY [facility] Basophils % 1.2 0.0 - 2.0 % 04/03/2024 8:03 AM EDT LABORATORY [facility] Immature Granulocytes % 0.4 0.0 - 2.0 % 04/03/2024 8:03 AM EDT LABORATORY [facility] Absolute Neutrophils 3.63 1.80 - 7.70 K/uL 04/03/2024 8:03 AM EDT LABORATORY [facility] Absolute Lymphocytes 0.94(L) 1.00 - 4.80 K/ul 04/03/2024 8:03 AM EDT LABORATORY [facility] Absolute Monocytes 0.37 0.00 - 1.10 K/uL 04/03/2024 8:03 AM EDT LABORATORY GL Absolute Eosinophils 0.16 0.00 - 0.70 K/uL 04/03/2024 8:[address] [facility] Absolute Basophils 0.06 0.00 - 0.20 K/uL 04/03/2024 8:03 AM EDT LABORATORY GL Absolute Immature Granulocytes 0.02 0.00 - 0.20 K/uL 04/03/2024 8:[address] [facility] Blood Venous blood specimen / Unknown Venipuncture / Unknown 04/03/2024 7:54 AM EDT 04/03/2024 7:55 AM EDT Roe Galarza MD LAB BLOOD ORDERABLE S LABORATORY [address] [address] * (ABNORMAL) CBC (04/03/2024 7:54 AM EDT) WBC 5.18 4.00 - 10.80 K/uL 04/03/2024 8:[address] [facility] RBC 3.46 4.50 - 5.25 M/uL 04/03/2024 8:[address] [facility] HGB 10.2(L) 14.0 - 16.8 g/dL 04/03/2024 8:[address] [facility] HCT 34.2(L) 40.0 - 48.4 % 04/03/2024 8:[address] [facility] MCV 98.8 82.0 - 99.5 fL 04/03/2024 8:[address] [facility] MCH 29.5 27.0 - 34.0 pg 04/03/2024 8:[address] [facility] MCHC 29.8 32.0 - 36.0 g/dL 04/03/2024 8:[address] [facility] RDW 20.2 11.5 - 15.5 % 04/03/2024 8:[address] [facility] PLT 376 140 - 400 K/uL 04/03/2024 8:[address] [facility] MPV 9.9 6.6 - 11.1 fL 04/03/2024 8:03 AM EDT LABORATORY [facility] nRBCs 0 <=0 /100 WBCs 04/03/2024 8:03 AM EDT LAB[facility]ATORY [facility] Blood Venous blood specimen / Unknown Venipuncture / Unknown 04/03/2024 7:54 AM EDT 04/03/2024 7:55 AM EDT Roe Galarza MD LAB BLOOD ORDERABLE S LABORATORY [facility] [address] [place] [address] * (ABNORMAL) COMPREHENSIVE METABOLIC PANEL (04/03/2024 7:54 AM EDT) BUN 23(H) 6 - 20 mg/dL 04/03/2024 8:21 AM EDT LABORATORY [facility] Creatinine 1.1 0.6 - 1.2 mg/dL 04/03/2024 8:21 AM EDT LABORATORY [facility] Estimated Glomerular Filtration Rate 68 >=60 mL/min 04/03/2024 8:21 AM EDT LABORATORY [facility] Comment:eGFR is calculated b ased on the CKD-EPI 2020 equation Sodium 138 135 - 146 mmol/L 04/03/2024 8:21 AM EDT LABORATORY [facility] Potassium 4.0 3.5 - 5.1 mmol/L 04/03/2024 8:21 AM EDT LABORATORY [facility] Chloride 103 98 - 107 mmol/L 04/03/2024 8:21 AM EDT LABORATORY [facility] CO2 24 22 - 32 mmol/L 04/03/2024 8:21 AM EDT LABORATORY [facility] Anion Gap 11 7 - 15 mmol/L 04/03/2024 8:21 AM EDT LABORATORY [facility] Glucose 196(H) 70 - 120 mg/dL 04/03/2024 8:21 AM EDT LABORATORY [facility] Albumin 4.2 3.8 - 5.0 g/dL 04/03/2024 8:21 AM EDT LABORATORY [facility] AST 21 10 - 50 U/L 04/03/2024 8:21 AM EDT LABORATORY [facility] Alkaline Phosphatase 101 35 - 130 U/L 04/03/2024 8:21 AM EDT LABORATORY [facility] Bilirubin, Total 0.2 <=1.2 mg/dL 04/03/2024 8:21 AM EDT LABORATORY [facility] Calcium 8.9 8.4 - 10.2 mg/dL 04/03/2024 8:21 AM EDT LABORATORY [facility] Protein 6.8 6.0 - 8.3 g/dL 04/03/2024 8:21 AM EDT LABORATORY [facility] ALT 22 10 - 50 U/L 04/03/2024 8:21 AM EDT LABORATORY [facility] Blood Venous blood specimen / Unknown Venipuncture / Unknown 04/03/2024 7:54 AM EDT 04/03/2024 7:55 AM EDT Roe Galarza MD LAB BLOOD ORDERABLE S LABORATORY [facility] 400 [facility] [place] [phone] documented in this encounter Visit Diagnoses Diagnosis Symptomatic anemia 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
--- OUTSIDE RECORDS SUMMARY | 2024-04-08 08:58 | External Medical Summary | Summary of Care ---
Author Name Unknown Organization [facility] Address [address] [facility] [place] [address] Phone [phone] Care Team Providers Care Parking Lot Manager Name Role Phone Praveena Banuelos Primary Care Provider [phone]- [phone] Reason for Visit * Reason Comments Treatment Venofer * Evaluate & Treat - Unlimited Visits (Within 10 days (routine)) - Authorized Specialty Diagnoses / Procedures Referred By Collette t Referred To Contact Hematology/Oncology / Hematology Oncology Diagnoses Symptomatic anemia Sukhjinder Cazares MD [address] [place], [place] [address]ist [place] [address] Referral ID Status Reason Start Date Expiration Date Visits Requested Visits Authorized [id number] Authorized Specialty Services Required 08/17/2023 08/27/[id number] Encounter Details Date Type Department Care Team (Latest Contact Info) Description 04/01/2024 8:00 AM EDT Hem/Onc Treatment Hematology/Oncology Treatment, [address] [place] [address] [facility], Chair2 Hem Onc [address] [place] [address] [place] [address] Symptomatic anemia* Allergies No known active allergiesdocumented as of this encounter (statuses as of 04/02/2024) Medications Medication Sig Dispensed Refills Start Date [...] as of this encounter (statuses as of 04/02/2024) Active Problems Problem Noted Date Diagnosed Date Dizziness 12/23/2023 Gastrointestinal hemorrhage 10/01/2023 AVM (arteriovenous malformation) of duodenum, 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 Sacroiliitis 08/30/2023 Tachycardia 08/28/2023 Symptomatic anemia 08/13/2023 Orthostatic hypotension 08/13/2023 Hearing loss 10/16/2021 S/P insertion of spinal cord stimulator 08/28/20 21 Overview: 08/28/2021 L flank subcut device (working) Monitored by [employer] Last Assessment & Plan: Monitored by [employer] Nocturia 04/24/2021 Last Assessment & Plan: About [...] as of this encounter (statuses as of 04/02/2024) Resolved Problems Problem Noted Date Diagnosed Date [...] as of this encounter (statuses as of 04/02/2024) Immunizations Name Administration Dates Next Due COVID-19 [...] on file documented as of this encounter Last Filed Vital Signs Vital Sign Reading Time Taken Comments Blood Pressure 141/72 04/01/2024 9:52 AM EDT Pulse 69 04/01/2024 9:52 AM EDT Temperature 36.8 C (98.2 F) 04/01/2024 9:52 AM ED T Respiratory Rate 18 04/01/2024 9:52 AM EDT Oxygen Saturation - - Inhaled Oxygen Concentration - - Weight - - Height - - Body Mass Index - - documented in this encounter Functional Status Functional Status Response [...] No 09/30/2023 documented as of this encounter Nursing Notes * Marilyn Arzate LPN - 04/01/2024 10:10 AM EDT Infusion completed.Tolerated well. VSS. Patient left IVC by ambulating. Unaccompanied. Voiced no complaints. Marilyn Arzate LPN 04/01/2024 10:11 AM * Marilyn Arzate LPN - 04/01/2024 8:06 AM EDT [place] 3. Venofer 4 of 4. Tolerated past infusions well. documented in this encounter Plan of Treatment Upcoming Encounters Date Type Department Care Team (Late st Contact Info) Description 04/03/2024 8:00 AM EDT Laboratory Laboratory, [address] [phone] [facility], Lab [address] [place] [address] [place] [address] 04/07/2024 4:00 PM EDT Telemedicine Hematology Oncology, [place] [address] [address] [place] [address] Roe Galarza MD [address] [place], [place] [address]K[place] [phone] 05/08/2024 9:00 AM EDT Laboratory Laboratory, [address] [place] [phone] [facility], Lab [address] [place], [place] [address]K[place] [address] 06/18/2024 9:30 AM EDT Office Visit Gastroenterology, Geeta Moreira, [place] [address] [place] [phone] Marlene Bruno PA-C [address] [place] [address] 08/12/2024 12:20 PM EDT Office Visit Family Practice, [place] [address] [facility] [place] [phone] Praveena Banuelos CRNP [facility] [place] [address] 03/19/2025 9:00 AM EDT Nurse Only Ancillary 1st Floor, [place] [address] [place] [address] [place], [facility] Wellness 2 [address] [place] [address] Health Maintenance Due Date Last Done Comments COVID-19 Vaccine (3 2022- season) 2023 12/17/2020, 11/18/2020 GFR 03/06/2025 03/06/2024, [...] this encounter Medical Devices Implanted Type Area Antisqueak Filler Device Identifier Shelf Expiration Date Model / Serial / Lot Love Bio Composite - [id number] Implanted:Qty: 2 on 04/29/2017 by Daquan Ang MD at OR [facility] Left: Shoulder [employer] 12/11/2018 AR-1927BC F / / [id number] [place] Push[place] 4.5x24mm - [id number] Implanted:Qty: 2 on 04/29/2017 by Daquan Ang MD at OR [facility] Left: Shoulder [employer] 12/11/2018 AR-1922BC / / [id number] Clik X Mri Ancor Implanted:Qty: 1 on 01/12/2019 by Saige Rivera MD at OR [facility] N/A: Back [employer] : PAIN MGMT 11/17/2020 SC-4319 / / [id number] Avista Mri 56 Cm 8 Contact Lead Kit Implanted:Qty: 1 on 01/12/2019 by Saige Rivera MD at OR [facility] N/A: Back [employer] : PAIN MGMT 10/30/2020 SC-2408-5 6 / [id number] / Avista Mri 56 Cm 8 Contact Lead Kit Implanted:Qty: 1 on 01/12/2019 by Saige Rivera MD at OR [facility] N/A: Back [employer] : PAIN MGMT 10/30/2020 SC-2408-5 6 / [id number] / Generator Implantable Pulse - [id number] Implanted:Qty: 1 on 01/12/2019 by Saige Rivera MD at OR [facility] N/A: Back [employer] : PAIN MGMT 10/16/2020 [id number] / / Duraclip 16mm Xlg Repostn - [id number] Implanted:Qty: 1 on 08/16/2023 by Ingrid Santiago MD at [facility] Bgifty [facility] [id number] 02/03/2025 DC023 5W / / [id number] Duraclip 16mm Xlg Repostn - [id number] Implanted:Qty: 1 on 08/16/2023 by Ingrid Santiago MD at ENDOSCOPY [facility] [id number] 04/15/2024 DC023 5W / / [id number] Catheter Hemostatic 235cm 2.8mm 11mm Cl[address] Latexfree - [id number] Implanted:Qty: 1 on 12/04/2023 by Donna Parker MD at OR [facility] [employer] : ENDOSCOPY [id number] 12/30/2025 [id number] / / [id number] Catheter Hemostatic 235cm 2.8mm 11mm [address] Latexfree - [id number] Implanted:Qty: 1 on 12/04/2023 by Donna Parker MD at OR [facility] [employer] : ENDOSCOPY [id number] 12/30/2025 [id number] / / [id number] Catheter Hemostatic 235cm 2.8mm 11mm [address] Latexfree - [id number] Implanted:Qty: 1 on 12/04/2023 by Donna Parker MD at OR [facility] [employer] : ENDOSCOPY [id number] 12/30/2025 [id number] / / [id number] documented as of this encounter Visit Diagnoses Diagnosis Symptomatic anemia- Primary documented in this encounter Administered Medications Inactive Administered Medications - up to 3 most recent administrations Medication Order MAR Action Action Date Dose Rate Site Iron Sucrose (Venofer) 300 mg in NSS 250 mL ivpb 300 mg, IV Piggyback, ONCE, 1 dose, On Sat04/01/24 at 0930, Administer over 90 Minutes Start Infusion 04/01/2024 8:27 AM EDT 300 mg 180 mL/hr NSS infusion 500 mL, Intravenous, at 50 mL/hr, CONTINUOUS, Starting on Sat04/01/24 at 0900, Until Sat04/01/24 at 1412 Start Infusion 04/01/2024 8:17 AM EDT 500 mL 50 mL/hr documented in this encounter Advance Directives * [...] Advance Directives occurred with: Patient Care Teams Parking Lot Manager Relationship Specialty Start Date End Date Praveena Banuelos CRNP 21 [place] [phone] PCP - General Nurse Practitioner 05/01/23 documented as of this encounter
--- OUTSIDE RECORDS SUMMARY | 2024-04-08 08:58 | External Medical Summary | Summary of Care ---
Author Name Unknown Organization [facility] Address [address] [facility] [place] [address] Phone [phone] Care Team Providers Care Polysomnographer Name Role Phone Praveena Banuelos Primary Care Provider +1- [phone] Encounter Details Date Type Department Care Team (Late st Contact Info) Description 03/04/2024 Result Scan Unspecified Department <No scans attached> Allergies No known active allergiesdocumented as of [...] at bedtime. 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 Right SI joint fusion Chronic right-sided thoracic back pain Postlaminectomy syndrome, lumbar region 09/14/20 19 RLS [...] supplies (not seen by sleep med since 2016) Will be followed by sleep medicine, supplier [...] (15 years old or older) No 09/30/20 23 Cognitive Status Response Date of Assessm ent Because of a physical, menta l, or emotional condition, do you have serious difficulty concentrating, remembering, or making decisions? (5 years old or older) No 09/30/2023 documented as of this encounter Plan of Treatment Upcoming Encounters Date Type Department Care Team (Late st Contact Info) Description 03/27/2024 8:30 AM EDT Hem/Onc Treatment Hematology/Oncology Treatment, [place] [address] [place] [address] [facility], Chair2 Hem Onc [address] [place], [place] [address]K[place] [address] 04/01/2024 8:00 AM EDT Hem/Onc Treatment Hematology/Oncology Treatment, [address] [place] [address] [facility], Chair2 Hem Onc [address] [place] [address], [place] [address] 04/03/2024 8:00 AM EDT Laboratory Laboratory, [address], [place] [phone] [facility], Lab [address] [place] [address] 04/07/2024 4:00 PM EDT Telemedicine Hematology Oncology, [place] [address] [address] [place] [address] Roe Galarza MD [address] [place] [address] 05/08/2024 9:00 AM EDT Laboratory Laboratory, [address], [place] [phone] [facility], Lab [address] [place] [address] 06/18/2024 9:30 AM EDT Office Visit Gastroenterology, [facility] [address] [facility] [phone] Marlene Bruno PA-C [address] [place] [address] 08/12/2024 12:20 PM EDT Office [facility] [place] [facility] [phone] Praveena Banuelos CRNP 21 [place] [address] 03/19/2025 9:00 AM EDT Nurse Only Ancillary 1st [facility], [place] 21 [place] [address] [place], Annual Wellness 2 [address] [place] [address] Health Maintenance Due Date Last Done Comments COVID-19 Vaccine (3 - 2022- season) 2023 12/17/2020, 11/18/2020 GFR 03/06/2025 [...] this encounter Medical Devices Implanted Type Area Sales Operations Director Device Identifier Shelf Expiration Date Model / Serial / Lot Cormanuelcrew Bio Composite - [id number] Implanted:Qty: 2 on 04/29/2017 by Daquan Ang MD at OR [facility] Left: Shoulder [employer] 12/11/2018 AR-1927BC F / / [id number] [place] Pushlock 4.5x24mm - [id number] Implanted:Qty: 2 on 04/29/2017 by Daquan Ang MD at OR [facility] Left: Shoulder [employer] 12/11/2018 AR-1922BC / / [id number] Clik X Mri Ancor Implanted:Qty: 1 on 01/12/2019 by Saige Rivera MD at OR [facility] N/A: Back [employer] : PAIN MGMT 11/17/2020 CO-4319 / / [id number] Avista Mri 56 Cm 8 Contact Lead Kit Implanted:Qty: 1 on 01/12/2019 by Siage Rivera MD at OR [facility] N/A: Back [employer] : PAIN MGMT 10/30/2020 SC-2408-5 6 / [id number] / Avista Mri 56 Cm 8 Contact Lead Kit Implanted:Qty: 1 on 01/12/2019 by Saige Rivera MD at OR [facility] N/A: Back [employer] : PAIN MGMT 10/30/2020 SC-2408-5 6 / [id number] / Generator Implantable Pulse - [id number] Implanted:Qty: 1 on 01/12/2019 by Saige Rivera MD at OR [facility] N/A: Back [employer] : PAIN MGMT 10/16/2020 [id number] / / Duraclip 16mm Xlg Repostn - [id number] Implanted:Qty: 1 on 08/16/2023 by Ingrid Santiago MD at ENDOSCOPY [facility] [employer] [id number] 02/03/2025 DC023 5W / / [id number] Duraclip 16mm Xlg Repostn - [id number] Implanted:Qty: 1 on 08/16/2023 by Ingrid Santiago MD at ENDOSCOPY [facility] [employer] [id number] 04/15/2024 DC023 5W / / [id number] Catheter Hemostatic 235cm 2.8mm 11mm [address] Latexfree - [id number] Implanted:Qty: 1 on 12/04/2023 by Donna Parker MD at OR [facility] [employer] : ENDOSCOPY [id number] 12/30/2025 [id number] / / [id number] Catheter Hemostatic 235cm 2.8mm 11mm [address] Latexfree - [id number] Implanted:Qty: 1 on 12/04/2023 by Donna Parker MD at OR [facility] [employer] : ENDOSCOPY [id number] 12/30/2025 [id number] / / [id number] Catheter Hemostatic 235cm 2.8mm 11mm [address] Latexfree - [id number] Implanted:Qty: 1 on 12/04/2023 by Donna Parker MD at OR [facility] [employer] : ENDOSCOPY [id number] 12/30/2025 [id number] / / [id number] documented as of this encounter Procedures Procedure Name Priority Date/Time Associated Diagnosis Comments OUTSIDE LAB RESULTS 03/04/2024 OUTSIDE LAB RESULTS 03/04/2024 documented in this encounter Results * OUTSIDE LAB RESULTS (03/04/2024) 03/04/2024 No Physician Data Unknown LABORATORY * OUTSIDE LAB RESULTS (03/04/2024) 03/04/2024 No Physician Data Unknown LABORATORY documented in this encounter Advance Directives * [...] Advance Directives occurred with: Patient Care Teams Polysomnographer Relationship Specialty Start Date End Date Praveena Banuelos CRNP 21 [place] [address] PCP - General Nurse Practitioner 05/01/23 documented as of this encounter
--- OUTSIDE RECORDS SUMMARY | 2024-04-08 08:58 | External Medical Summary ---
Author Name Unknown Address Unknown Organization [id number]:LABORATORY [facility] - [address] [facility]. [place] [id number] Laboratory Report Ordering Provider Test Date Status MISTY DELGADOWanda 04/03/2024 07:54:57 Final Observation Date Value Abnormality Reference (Units ) Status SYNC LEUKOCYTES IN BLOOD BY AUTOMATED COUNT 04/03/2024 07:54:57 5.18 4.00-10.80 (K/uL) Final Segs 04/03/2024 07:54:57 70.1 40.0-75.0 (%) Final Lymphs % 04/03/2024 07:54:57 18.1 18.0-42.0 (%) Final Monos 04/03/2024 07:54:57 7.1 1.0-11.0 (%) Final Eosinophils 04/03/2024 07:54:57 3.1 0.0-6.0 (%) Final Basos 04/03/2024 07:54:57 1.2 0.0-2.0 (%) Final Immature Granulocyte, Percent 04/03/2024 07:54:57 0.4 0.0-2.0 (%) Final Absolute Segs 04/03/2024 07:54:57 3.63 1.80-7.70 (K/uL) Final Lymphs, absolute 04/03/2024 07:54:57 0.94 Below low normal 1.00-4.80 (K/ul) Final Monos, Abs 04/03/2024 07:54:57 0.37 0.00-1.10 (K/uL) Final Eos, Abs 04/03/2024 07:54:57 0.16 0.00-0.70 (K/uL) Final Basos, Abs 04/03/2024 07:54:57 0.06 0.00-0.20 (K/uL) Final Immature Granulocytes, Number 04/03/2024 07:54:57 0.02 0.00-0.20 (K/uL) Final Performing Location LABORATORY [facility] - [address] [facility] [address] [place] [address]
--- OUTSIDE RECORDS SUMMARY | 2024-04-08 08:58 | External Medical Summary ---
Author Name Unknown Address Unknown Organization K01:LABORATORY [facility] - [address] [place] [id number] Laboratory Report Ordering Provider Test Date Status BELIA DELGADO 04/03/2024 07:54:57 Final Observation Date Value Abnormality Reference (Units ) Status Iron 04/03/2024 07:54:57 58 45-176 (ug /dL) Final Iron-binding capacity 04/03/2024 07:54:57 379 250-425 (ug/dL) Final Transferrin Sat % 04/03/2024 07:54:57 15 15 -55 (%) Final Performing Location LABORATORY [facility] - [address] [place] [address]
--- OUTSIDE RECORDS SUMMARY | 2024-04-08 08:58 | External Medical Summary | Summary of Care ---
Author Name Unknown Organization [facility] Address [address] [facility] [place] [address] Phone [phone] Care Team Providers Care Stringed Instrument Assembler Name Role Phone Praveena Banuelos Primary Care Provider +1- [phone] Reason for Visit * Reason Comments Treatment venofer * Evaluate & Treat - Unlimited Visits (Within 10 days (routine)) - Authorized Specialty Diagnoses / Procedures Referred By Collette t Referred To Contact Hematology/Oncology / Hematology Oncology Diagnoses Symptomatic anemia Sukhjinder Cazares MD [address] [place], [place] [address]ist [place] [address] Referral ID Status Reason Start Date Expiration Date Visits Requested Visits Authorized [id number] Authorized Specialty Services Required 08/17/2023 08/27/[phone] Encounter Details Date Type Department Care Team (Latest Contact Info) Description 03/27/2024 8:30 AM EDT Hem/Onc Treatment Hematology/Oncology Treatment, [address] [place] [address] [facility], Chair2 Hem Onc [address] [place] [address] [place] [address] Symptomatic anemia* Allergies No known active allergiesdocumented as of this encounter (statuses as of 03/27/2024) Medications Medication Sig Dispensed Refills Start Date [...] as of this encounter (statuses as of 03/27/2024) Active Problems Problem Noted Date Diagnosed Date Dizziness 12/23/2023 Gastrointestinal hemorrhage 10/01/2023 AVM (arteriovenous malformation) of duodenum, 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 Sacroiliitis 08/30/2023 Tachycardia 08/28/2023 Symptomatic anemia 08/13/2023 Orthostatic hypotension 08/13/2023 Hearing loss 10/16/2021 S/P insertion of spinal cord stimulator 08/28/20 21 Overview: 08/28/2021 L flank subcut device (working) Monitored by [facility] Last Assessment & Plan: Monitored by [employer] Nocturia 04/24/2021 Last Assessment & Plan: About [...] as of this encounter (statuses as of 03/27/2024) Resolved Problems Problem Noted Date Diagnosed Date [...] as of this encounter (statuses as of 03/27/2024) Immunizations Name Administration Dates Next Due COVID-19 [...] Sign Reading Time Taken Comments Blood Pressure 148/76 03/27/2024 10:14 AM EDT Pulse 76 03/27/2024 10:14 AM EDT Temperature 36.6 C (97.9 F) 03/27/2024 10:14 AM E DT Respiratory Rate 18 03/27/2024 10:14 AM EDT Oxygen Saturation - - Inhaled [...] Nursing Notes * Marilyn Arzate LPN - 03/27/2024 10:17 AM EDT Infusion completed. Tolerated well. Patient left IVC by ambulating. Unaccompanied. Voiced no complaints. Marilyn Arzate LPN 03/27/2024 10:17 AM * Marilyn Arzate LPN - 03/27/2024 8:30 AM EDT Venofer 3 of 4. Tolerated last infusions well. Barren 3 documented in this encounter Plan of Treatment Upcoming Encounters Date Type Department Care Team (Late st Contact Info) Description 04/01/2024 8:00 AM EDT Hem/Onc Treatment Hematology/Oncology Treatment, [facility] [address] [place] [address] [facility], Chair2 Hem Onc [address] [place] [id number] 04/03/2024 8:00 AM EDT Laboratory Laboratory, [address] [phone] [facility] Lab [address] [facility] [address] 04/07/2024 4:00 PM EDT Telemedicine Hematology Oncology, [place] [address] [address] [place] [address] Roe Galarza MD 400 [facility] [address] 05/08/2024 9:00 AM EDT Laboratory Laboratory, [address] [place] [phone] [facility], Lab 400 [place] [address] 06/18/2024 9:30 AM EDT Office Visit Gastroenterology, [facility] [address] [place] [phone] Marlene Bruno PA-C 310 [place] [address] 08/12/2024 12:20 PM EDT Office Visit [facility], [place] 21 [facility] [place] [phone] Praveena Banuelos CRNP 21 [facility] [address] 03/19/2025 9:00 AM EDT Nurse Only Ancillary 1st Floor, [place] [address] [place] [address] [place], [facility] Wellness 2 [address] [place] [address] Health Maintenance Due Date Last Done Comments COVID-19 Vaccine (3 - season) 2023 12/17/2020, 11/18/2020 GFR 03/06/2025 03/06/2024, [...] this encounter Medical Devices Implanted Type Area Operator Coating Furnace Device Identifier Shelf Expiration Date Model / Serial / Lot Love Bio Composite - [id number] Implanted:Qty: 2 on 04/29/2017 by Daquan Ang MD at OR [facility] Left: Shoulder [employer] 12/11/2018 AR-1927BC F / / [id number] [place] Pushlock 4.5x24mm - [id number] Implanted:Qty: 2 on 04/29/2017 by Daquan Ang MD at OR [facility] Left: Shoulder [employer] 12/11/2018 AR-1922BC / / [id number] Clik X Mri Ancor Implanted:Qty: 1 on 01/12/2019 by Saige Rivera MD at OR [facility] N/A: Back [employer] : PAIN MGMT 11/17/2020 [id number]-4319 / / [id number] Avista Mri 56 Cm 8 Contact Lead Kit Implanted:Qty: 1 on 01/12/2019 by Saige Rivera MD at OR [facility] N/A: Back [employer] : PAIN MGMT 10/30/2020 SC-2408-5 6 [id number] / Avista Mri 56 Cm 8 Contact Lead Kit Implanted:Qty: 1 on 01/12/2019 by Saige Rivera MD at OR [facility] N/A: Back [employer] : PAIN MGMT 10/30/2020 SC-2408-5 [id number] / Generator Implantable Pulse - [id number] Implanted:Qty: 1 on 01/12/2019 by Saige Rivera MD at OR [facility] N/A: Back [employer] : PAIN MGMT 10/16/2020 [id number] / / Duraclip 16mm Xlg Repostn - [id number] Implanted:Qty: 1 on 08/16/2023 by Ingrid Santiago MD at ENDOSCOPY [facility] [employer]MED BRITTA [id number] 02/03/2025 DC023 5W / / [id number] Duraclip 16mm Xlg Repostn - [id number] Implanted:Qty: 1 on 08/16/2023 by Ingrid Santiago MD at ENDOSCOPY [facility] [employer] [id number] 04/15/2024 DC023 5W / / [id number] Catheter Hemostatic 235cm 2.8mm 11mm Cl[address] Latexfree - [id number] Implanted:Qty: 1 on 12/04/2023 by Donna Parker MD at OR [facility] [employer] : ENDOSCOPY [id number] 12/30/2025 [id number] / / [id number] Catheter Hemostatic 235cm 2.8mm 11mm Cl[address] Latexfree - [id number] Implanted:Qty: 1 on 12/04/2023 by Donna Parker MD at OR [facility] [employer] : ENDOSCOPY [id number] 12/30/2025 [id number] / / [id number] Catheter Hemostatic 235cm 2.8mm 11mm [address] Latexfree - [id number] Implanted:Qty: 1 on 12/04/2023 by Donna Parker MD at OR [facility] SCIENTIFIC : ENDOSCOPY [id number] 12/30/2025 [id number] / / [id number] documented as of this encounter Visit Diagnoses Diagnosis Symptomatic anemia- Primary documented in this encounter Administered Medications Active Administered Medications - up to 3 most recent administrations Medication Order MAR Action Action Date Dose Rate Site diphenhydrAMINE (Benadryl) inj 50 mg 50 mg, IV Push, ONCE PRN Other, Hypersensitivity Reaction, Starting on Sat03/27/24 at 0826, Until 03/28/24 at 0825, For 24 hours EPINEPHrine 1 MG/ML inj 0.3 mg 0.3 mg, Intramuscular, ONCE PRN Other, Hypersensitivity Reaction or Anaphylaxis, Starting on Sat03/27/24 at 0826, Until 03/28/24 at 0825, For 24 hours hEParin 100 UNIT/ML Lock Flush inj 500 Units 500 Units (5 mL), IV Lock, PRN Other, IV Flush, Starting on Sat03/27/24 at 0826, Until 03/28/24 at 0825, For 24 hours, Do not flush if lock, PICC, or central line not in place; IV infusing or unable to flush. Hydrocortisone Sod Suc (PF) (Solu-Cortef) inj 100 mg 100 mg, IV Push, ONCE PRN Other, Hypersensitivity Reaction, Starting on Sat03/27/24 at 0826, Until 03/28/24 at 0825, For 24 hours NSS infusion 500 mL, Intravenous, at 50 mL/hr, CONTINUOUS, Starting on Sat03/27/24 at 0930, Until Sat03/27/24 at 1929 Start Infusion 03/27/2024 8:37 AM EDT 500 mL 50 mL/hr sodium chloride 0.9 % flush central line 10 mL 10 mL, IV Push, PRN Other, IV Flush, Starting on Sat03/27/24 at 0826, Until 03/28/24 at 0825, For 24 hours, Do not flush if lock, PICC, or central line not in place; IV infusing or unable to flush. Inactive Administered Medications - up to 3 most recent administrations Medication Order MAR Action Action Date Dose Rate Site Iron Sucrose (Venofer) 300 mg in NSS 250 mL ivpb 300 mg, IV Piggyback, ONCE, 1 dose, On Sat03/27/24 at 1000, Administer over 90 Minutes Start Infusion 03/27/2024 8:38 AM EDT 300 mg 180 mL/hr documented in this encounter Advance Directives [...] Advance Directives occurred with: Patient Care Teams Stringed Instrument Assembler Relationship Specialty Start Date End Date Praveena Banuelos CRNP [address] [place] [id number] PCP - General Nurse Practitioner 05/01/23 documented as of this encounter
--- OUTSIDE RECORDS SUMMARY | 2024-04-08 08:58 | External Medical Summary ---
Author Name Unknown Address Unknown Organization K1F:LABORATORY [facility] - [address] [place] [address] Ave. [place] [address] Laboratory Report Ordering Provider Test Date Status BELIA DELGADO 04/03/2024 07:54:57 Final Observation Date Value Abnormality Reference (Units ) Status WBC, Total 04/03/2024 07:54:57 5.18 4.00-10.80 (K/uL) Final RBC 04/03/2024 07:54:57 3.46 4.50-5.25 (M/uL) Final Hemoglobin 04/03/2024 07:54:57 10.2 Below low normal 14.0-16.8 (g/dL) Final HCT 04/03/2024 07:54:57 34.2 Below low normal 40.0-48.4 (%) Final MCV 04/03/2024 07:54:57 98.8 82.0-99.5 (fL) Final MCH 04/03/2024 07:54:57 29.5 27.0-34.0 (pg) Final MCHC 04/03/2024 07:54:57 29.8 32.0-36.0 (g/dL) Final RDW 04/03/2024 07:54:57 20.2 11.5-15.5 (%) Final Platelets 04/03/2024 07:54:57 376 140-400 (K/uL) Final MPV 04/03/2024 07:54:57 9.9 6.6-11.1 (fL) Final Nucleated erythrocytes/100 leukocytes [Ratio] in Blood by Automated count 04/03/2024 07:54:57 0 <=0 (/100 WBCs) Final Performing Location LABORATORY [facility] - [address] [place] [address]
--- OUTSIDE RECORDS SUMMARY | 2024-04-08 08:58 | External Medical Summary | Summary of Care ---
Author Name Unknown Organization [facility] Address 100 [facility] [place] [address] Phone [phone] Care Team Providers Care Local Government Legislator Name Role Phone Praveena Banuelos Primary Care Provider +1- [phone] Reason for Visit * Reason Comments Treatment Venofer * Evaluate & Treat - Unlimited Visits (Within 10 days (routine)) - Authorized Specialty Diagnoses / Procedures Referred By Collette t Referred To Contact Hematology/Oncology / Hematology Oncology Diagnoses Symptomatic anemia Sukhjinder Cazares MD [address] [place], [place] [address]ist [place] [address] Referral ID Status Reason Start Date Expiration Date Visits Requested Visits Authorized [id number] Authorized Specialty Services Required 08/17/2023 08/27/[phone] Encounter Details Date Type Department Care Team (Latest Contact Info) Description 04/01/2024 8:00 AM EDT Hem/Onc Treatment Hematology/Oncology Treatment, [address] [place] [address] [facility], Chair2 Hem Onc [address] [place] [address] [place] [address] Symptomatic anemia* Allergies No known active allergiesdocumented as of this encounter (statuses as of 04/01/2024) Medications Medication Sig Dispensed Refills Start Date [...] as of this encounter (statuses as of 04/01/2024) Active Problems Problem Noted Date Diagnosed Date Dizziness 12/23/2023 Gastrointestinal hemorrhage 10/01/2023 AVM (arteriovenous malformation) of duodenum, 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 Last Assessment & Plan: Monitored by [facility] Nocturia 04/24/2021 Last Assessment & Plan: About [...] as of this encounter (statuses as of 04/01/2024) Resolved Problems Problem Noted Date Diagnosed Date [...] as of this encounter (statuses as of 04/01/2024) Immunizations Name Administration Dates Next Due COVID-19 [...] Arzate LPN - 04/01/2024 8:06 AM EDT [place] 3. Venofer 4 of 4. Tolerated past infusions well. documented in this encounter Plan of Treatment Upcoming Encounters Date Type Department Care Team (Late st Contact Info) Description 04/03/2024 8:00 AM EDT Laboratory Laboratory, [address] [phone] [facility], Lab [address] [place] [address] [place] [address] 04/07/2024 4:00 PM EDT Telemedicine Hematology Oncology, [place] [address] [address] [place] [address] Roe Galarza MD [address] [place], [place] [address]K[place] [phone] 05/08/2024 9:00 AM EDT Laboratory Laboratory, [address] [place] [phone] [facility], Lab [address] [place], [place] [address]K[place] [address] 06/18/2024 9:30 AM EDT Office Visit Gastroenterology, [place], [place] [address] [place] [phone] Marlene Bruno PA-C [address] [place] [address] 08/12/2024 12:20 PM EDT Office Visit Family Practice, [place] 21 [facility] [place] [phone] Praveena Banuelos CRNP 21 [facility] [address] 03/19/2025 9:00 AM EDT Nurse Only Ancillary 1st Floor, [place] 21 [place] [address] [place], [facility] Wellness 2 [address] [place] [address] Health Maintenance Due Date Last Done Comments [...] this encounter Medical Devices Implanted Type Area Getter Welder Device Identifier Shelf Expiration Date Model / Serial / Lot Love Bio Composite - [id number] Implanted:Qty: 2 on 04/29/2017 by Daquan Ang MD at OR [facility] Left: Shoulder [employer] 12/11/2018 AR-1927BC F / / [id number] [place] Pushlock 4.5x24mm - [id number] Implanted:Qty: 2 on 04/29/2017 by Daquan Ang MD at OR [facility] Left: Shoulder [employer] 12/11/2018 AR-1922BC / / [id number] Clik X Mri Ancor Implanted:Qty: 1 on 01/12/2019 by Saige Rivera MD at OR [facility] N/A: Back [employer] : PAIN MGMT 11/17/2020 SC-4319 / / [id number] Avista Mri 56 Cm 8 Contact Lead Kit Implanted:Qty: 1 on 01/12/2019 by Saige Rivera MD at OR [facility] N/A: Back [employer] : PAIN MGMT 10/30/2020 SC-2408-5 6 / [id number] / Avista Mri 56 Cm 8 Contact Lead Kit Implanted:Qty: 1 on 01/12/2019 by Saige Rivera MD at OR [facility] N/A: Back [employer] : PAIN MGMT 10/30/2020 SC-2408-5 6 / [id number] / Generator Implantable Pulse - [id number] Implanted:Qty: 1 on 01/12/2019 by Saige Rivera MD at OR [facility] N/A: Back [employer] : PAIN MGMT 10/16/2020 [id number] / / Duraclip 16mm Xlg Repostn - [id number] Implanted:Qty: 1 on 08/16/2023 by Ingrid Santiago MD at [facility] [employer] [facility] [id number] 02/03/2025 DC023 5W / / [id number] Duraclip 16mm Xlg Repostn - [id number] Implanted:Qty: 1 on 08/16/2023 by Ingrid Santiago MD at ENDOSCOPY [facility] [id number] 04/15/2024 DC023 5W / / [id number] Catheter Hemostatic 235cm 2.8mm [address]mm [address] Latexfree - [id number] Implanted:Qty: 1 on 12/04/2023 by Donna Parker MD at OR [facility] [employer] : ENDOSCOPY [id number] 12/30/2025 [id number] / / [id number] Catheter Hemostatic 235cm 2.8mm [address]mm [address] Latexfree - [id number] Implanted:Qty: 1 on 12/04/2023 by Donna Parker MD at OR [facility] [employer] : ENDOSCOPY [id number] 12/30/2025 [id number] / / [id number] Catheter Hemostatic 235cm 2.8mm 11mm [address] Latexfree - [id number] Implanted:Qty: 1 on 12/04/2023 by Donna Parker MD at OR [facility] [employer] : ENDOSCOPY [id number] 12/30/2025 [id number] / / [id number] documented as of this encounter Visit Diagnoses Diagnosis Symptomatic anemia- Primary documented in this encounter Administered Medications Active Administered Medications - up to 3 most recent administrations Medication Order MAR Action Action Date Dose Rate Site diphenhydrAMINE (Benadryl) inj 50 mg 50 mg, IV Push, ONCE PRN Other, Hypersensitivity Reaction, Starting on Sat04/01/24 at 0759, Until Prisca 04/02/24 at 0758, For 24 hours EPINEPHrine 1 MG/ML inj 0.3 mg 0.3 mg, Intramuscular, ONCE PRN Other, Hypersensitivity Reaction or Anaphylaxis, Starting on Sat04/01/24 at 0759, Until Prisca 04/02/24 at 0758, For 24 hours hEParin 100 UNIT/ML Lock Flush inj 500 Units 500 Units (5 mL), IV Lock, PRN Other, IV Flush, Starting on Sat04/01/24 at 0759, Until Prisca 04/02/24 at 0758, For 24 hours, Do not flush if lock, PICC, or central line not in place; IV infusing or unable to flush. Hydrocortisone Sod Suc (PF) (Solu-Cortef) inj 100 mg 100 mg, IV Push, ONCE PRN Other, Hypersensitivity Reaction, Starting on Sat04/01/24 at 0759, Until Prisca 04/02/24 at 0758, For 24 hours NSS infusion 500 mL, Intravenous, at 50 mL/hr, CONTINUOUS, Starting on Sat04/01/24 at 0900, Until Sat04/01/24 at 1859 Start Infusion 04/01/2024 8:17 AM EDT 500 mL 50 mL/hr oxygen GAS Inhalation, OXYGEN, First dose on Sat04/01/24 at 0830, Until Discontinued, Device/Managed by: Low Flow Device, Goal SPO2 (%): 91-95, Starting Device: Nasal Cannula, Initial Flow Rate (LPM): 2, Lowest Support: Nasal Cannula: Flow 0-6 LPM. Titrate up/down by 1 LPM., Higher Support: Non-Rebreather (NRB) Mask: Minimum of 10 LPM. Titrate to maintain bag inflation., Titration Interval: Q2 minutes and as needed., Notify Provider: For sudden DECREASE in resting SPO2 to less than 85% and when escalating delivery device., Wean patient off Oxygen when the oxygen saturation is greater than or equal to 93% sodium chloride 0.9 % flush central line 10 mL 10 mL, IV Push, PRN Other, IV Flush, Starting on Sat04/01/24 at 0759, Until Prisca 04/02/24 at 0758, For 24 hours, Do not flush if [...] 8:27 AM EDT 300 mg 180 mL/hr documented [...] Advance Directives occurred with: Patient Care Teams Local Government Legislator Relationship Specialty Start Date End Date Praveena Banuelos CRNP [address] [place] [address] PCP - General Nurse Practitioner 05/01/23 documented as of this encounter
--- OUTSIDE RECORDS SUMMARY | 2024-04-08 08:58 | External Medical Summary ---
Author Name Unknown Address Unknown Organization K1F:[facility]ORY [facility] - [facility] [address] [place] [address] Laboratory Report Ordering Provider Test Date Status RACQUEL LOPEZGERS 04/03/2024 07:54:57 Final Observation Date Value Abnormality Reference (Units ) Status ABO 04/03/2024 07:54:57 A Final RH 04/03/2024 07:54:57 Positive Final RED BLOOD CELL ANTIBODY SCREEN 04/03/2024 07:54:57 Negative Final SPECIMEN EXPIRATION DATE 04/03/2024 07:54:57 04/06/2024 23:59 Final Performing Location [facility] - [address] [place] [address]
--- OUTSIDE RECORDS SUMMARY | 2024-04-08 08:58 | External Medical Summary ---
Author Name Unknown Address Unknown Organization K01:LABORATORY [facility] - [address] [facility] [address] [place] [address] Laboratory Report Ordering Provider Test Date Status BELIA DELGADO 04/03/2024 07:54:57 Final Observation Date Value Abnormality Reference (Units ) Status Ferritin 04/03/2024 07:54:57 348 30-400 (ng /mL) Final Performing Location LAB[facility]ATORY [facility] - [address] [place] [address]
--- OUTSIDE RECORDS SUMMARY | 2024-04-08 08:59 | External Medical Summary | Summary of Care ---
Author Name Unknown Organization [facility] [address] [facility] [address] Phone [phone] Care Team Providers Care Tooth Polisher Name Role Phone Praveena Banuelos Primary Care Provider [phone]- [phone] Reason for Visit * Reason Onset Date Comments Adult Annual Wellness Visit, Subsequent Visit Encounter Details Date Type Department Care Team (Late st Contact Info) Description 03/13/2024 8:00 AM EDT Nurse Only Ancillary 1st Floor, [place] [address] [facility] [place] [address] [place], Annual Wellness 2 21 [place] [address] Adult Annual Wellness Visit, Subsequent Visit Allergies No known active allergiesdocumented as of this encounter (statuses as of 03/13/2024) Medications Medication Sig Dispensed Refills Start Date [...] as of this encounter (statuses as of 03/13/2024) Active Problems Problem Noted Date Diagnosed Date Dizziness 12/23/2023 Gastrointestinal hemorrhage 10/01/2023 AVM (arteriovenous malformation) of duodenum, 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 Sacroiliitis 08/30/2023 Tachycardia 08/28/2023 Symptomatic anemia 08/13/2023 Orthostatic hypotension 08/13/2023 Hearing loss 10/16/2021 S/P insertion of spinal cord stimulator 08/28/20 21 Overview: 08/28/2021 L flank subcut device (working) Monitored by B[facility] Last Assessment & Plan: Monitored by Byliner Nocturia 04/24/2021 Last Assessment & Plan: About [...] as of this encounter (statuses as of 03/13/2024) Resolved Problems Problem Noted Date Diagnosed Date [...] as of this encounter (statuses as of 03/13/2024) Immunizations Name Administration Dates Next Due COVID-19 [...] Date Recorded PHQ Adult Total Score 0 12/20/2023 Hunger Vital Sign Answer Date Recorded Within [...] Sign Reading Time Taken Comments Blood Pressure 140/74 03/13/2024 7:50 AM EDT Pulse 80 03/13/2024 7:50 AM EDT Temperature 36.2 C (97.2 F) 03/13/2024 7:50 AM ED T Respiratory Rate 20 03/13/2024 7:50 AM EDT Oxygen Saturation 98% 03/13/2024 7:50 AM EDT Inhaled Oxygen Concentration - - Weight 106.5 kg (234 lb 12.8 oz) 03/13/2024 7:50 AM EDT Height - - Body Mass Index 32.75 01/07/2024 8:36 AM EDT documented in this encounter Functional Status Functional [...] No 09/30/2023 documented as of this encounter Patient Instructions * Patient Instructions* Nell Ortiz RN - 03/13/2024 8:13 AM EDT Hi Mr. Stout, As your primary care physician, I know that regular visits with my patients who have several chronic conditions can go a long way in helping you stay healthy. Many times, the clinic team and I are in touch with you and/or other care team members between office visits to adjust medications, discuss any changes in your health, and review our care plan to make sure it is still meeting your needs. I am dedicated to helping you take a more active role in your overall care. It is important that there are resources available to you, so I created a personalized plan of care with a Health Calendar for you, which is included on the next page of this letter. Below is a list that summarizes your electronic health record: Health Maintenance Due: Health Maintenance Due Topic Date Due COVID-19 Vaccine ( season) 2023 Current Medication List: (as of Visit date not found (in office), Visit date not found (telemedicine) ) Current Outpatient Medications Medication Sig Dispense Refill Acetaminophen 500 MG Oral Tablet (TYLENOL) TAKE TWO TABLETS BY MOUTH PRN Folic Acid 400 MCG Oral Tablet Take 1 Tablet by mouth in the morning. 90 Tablet 2 Polyethylene Glycol 3350 17 GM Oral Packet (MiraLax) Take 1 Packet by mouth daily as needed forConstipation. Iron 240 (27 Fe) MG Oral Tablet Take by mouth. 2 tablets every other day Finasteride 5 MG Oral Tablet (Proscar) Take 1 Tablet by mouth in the morning. amLODIPine Besylate 5 MG Oral Tablet (Norvasc) Take 1 Tablet by mouth in the morning. 90 Tablet1 Famotidine 20 MG Oral Tablet (Pepcid) TAKE ONE TABLET BY MOUTH IN THE MORNING AND BEFORE BEDTIME. 200 Tablet 2 Octreotide Acetate 10 MG Intramuscular Kit (SandoSTATIN [place]) Inject 10 mg into a large muscle every month. (Patient taking differently: Inject 10 mg into a large muscle Every Month. 12/23/23getting first shot tomorrow 12/23) 3 Kit 3 [...] Release Particles (Cymbalta) Take 2 Capsules by mouthin the morning. 200 Capsule 1 CPAP every night at bedtime. No current facility-administered medications for this visit. Current List of Allergies: (as of Visit date not found (in office), Visit date not found (telemedicine) ) Review of patient's allergies indicates: No Known Allergies Most Recent Lab Results: Results for orders placed or performed in visit on 03/11/24 URINALYSIS, REFLEX TO CULTURE (CUP ONLY) Result Value Ref Range Urinalysis, Reflex to Culture Specimen Specimen collected and received URINALYSIS, REFLEX TO CULTURE Result Value Ref Range Color, Urine Yellow Light Yellow, Yellow, Dark Yellow Clarity, Urine Clear Clear Glucose, Urine Negative Negative mg/dL Bilirubin, Urine Negative Negative Ketone, Urine Negative Negative mg/dL Specific [place], Urine 1.015 1.003 - 1.030 Blood, Urine Negative Negative pH, Urine 6.0 5.0 - 7.5 Units Protein, Urine Negative Negative mg/dL Urobilinogen, Urine 0.2 0.2, 1.0 mg/dL Nitrite, Urine Negative Negative Esterase, Urine Negative Negative RBC, Urine 0-2 0 - 2 /HPF WBC, Urine 0-2 0 - 2 /HPF Bacteria, Urine 101-150 (A) 0 - 25 /HPF Culture, Urine CULTURE, URINE, QUANTITATIVE Specimen: Urine, Clean Catch Result Value Ref Range Culture Growth No significant growth Sincerely, JONATHAN Velasco 03/13/2024 [facility] Calendar (as of Visit date not found (in office), Visit date not found (telemedicine) ) Care needs Care needs Last completed Due next COVID-19 Vaccine ( season) 2020 06/14/2023 Kidney Function Test 03/06/2024 03/06/2025 Urine albumin/creatinine test 05/20/2023 05/20/2026 Diphtheria, tetanus & pertussis vaccines (3 - Td or Tdap) 12/23/2020 12/23/2030 As you look over the recommended services, be sure to check with your insurance company to determine what's covered. [employer] is a great tool that helps you review your medical record online, including test results, doctor notes and your health summary. You can also schedule appointments with me and other members of your care team, request prescription refills and ask for advice related to your medical conditions at [employer]. documented in this encounter Progress Notes * Nell Ortiz RN - 03/13/2024 8:13 AM EDT Adult Annual Wellness Visit: Naveen Stout is a 83 year old male who presents for an Adult Annual Wellness Visit. Depression Screening: Did the patient complete the screening questionnaire for Depression? Yes Is the patient's total score for Depression 15 or greater? No, no further intervention needed, unless requested by patient. Did the patient answer positively to the suicide question? No, no further intervention needed, unless requested by patient. In general, compared to other people your age, what would you say that your health is? Very Good Ht Readings from Last 1 Encounters: 01/07/24 1.803 m (5' 11") Wt Readings from Last 1 Encounters: 03/13/24 106.5 kg (234 lb 12.8 oz) Body Mass Index: BMI Greater than 30 Body mass index is 32.75 kg/m. BP Readings from Last 1 Encounters: 03/13/24 140/74 Medical/Surgical/Family History Reviewed: Yes Past Medical History: Diagnosis Date DDD (degenerative disc disease), cervical DDD (degenerative disc disease), lumbar Diverticulosis of sigmoid colon 05/18/2014 GERD (gastroesophageal reflux disease) Hypercholesteremia Hypertension Lumbago Pain in joint, lower leg Unspecified deficiency anemia Past Surgical History: Procedure Laterality Date ARTHROCENT ASP &/OR INJ MAJOR JX/BURSA W/O US Right 05/05/2021 ARTHROCENTESIS OR INJECTION MAJOR JOINT performed by Nora Burden MD at OR [facility] ARTHROSCOPY OF JOINT Left 04/29/2017 UNLISTED PROCEDURE ARTHROSCOPY performed by Daquan Ang Jr., MD at OR [facility] CARPAL TUNNEL SURGERY COLONOSCOPY, DIAGNOSTIC (RECTUM) 05/18/2014 Diverticulosis in the sigmoid colon, otherwise normal. repeat in 10 yrs/COLONOSCOPY FLEXIBLE PROXIMAL DIAGNOSTIC performed by Michel Markham MD at ENDOSCOPY [facility] COLONOSCOPY, DIAGNOSTIC (RECTUM) N/A 02/16/2016 tics, 10 yr recall, COLONOSCOPY FLEXIBLE [facility]OXIMAL [facility]ST[facility] (RECTUM) N/A 10/10/2020 diverticulosis / COLONOSCOPY FLEXIBLE PROXIMAL DIAGNOSTIC performed by Kulwinder Rbobins MD at ENDOSCOPY [facility] COLONOSCOPY, DIAGNOSTIC (RECTUM) N/A 08/16/2023 poor prep/multiple sigmoid and descending colon diverticula/hemorrhoids/COLONOSCOPY FLEXIBLE PROXIMAL DIAGNOSTIC performed by Ingrid Santiago MD at ENDOSCOPY [facility] COLONOSCOPY, DIAGNOSTIC (RECTUM) 09/19/2023 diverticulosis/COLONOSCOPY FLEXIBLE PROXIMAL DIAGNOSTIC performed by Michel Markham MD at [facility] EGD, FLEXIBLE, DIAGNOSTIC N/A 02/16/2016 non-bleeding angioectasia, ESOPHAGOGASTRODUODENOSCOPY (EGD), FLEXIBLE, TRANSORAL, DIAGNOSTIC performed by Michel Markham MD at [facility] EGD, FLEXIBLE, DIAGNOSTIC N/A 10/10/2020 normal bx, hiatal hernia / ESOPHAGOGASTRODUODENOSCOPY (EGD), FLEXIBLE, TRANSORAL, DIAGNOSTIC performed by Kulwinder Robbins MD at ENDOSCOPY [facility] EGD, FLEXIBLE, DIAGNOSTIC N/A 08/16/2023 hiatal hernia/non bleeding small AVM's, some ablated 2 clips placed/ESOPHAGOGASTRODUODENOSCOPY (EGD), FLEXIBLE, TRANSORAL, DIAGNOSTIC performed by Ingrid Santiago MD at ENDOSCOPY [facility] EGD, FLEXIBLE, DIAGNOSTIC N/A 12/04/2023 eight angioectasis jejunum, treated with APC, clips placed/ESOPHAGOGASTRODUODENOSCOPY (EGD), FLEXIBLE, TRANSORAL, DIAGNOSTIC performed by Donna Parker MD at OR [facility] EVAL NEUROSTIM PULSE GEN, W/ REPROGRAM N/A 12/08/2018 NEUROSTIMULATOR PULSE GENERATOR/ TRANSMITTER, WITH INTRAOPERATIVE OR SUBSEQUENT PROGRAMMING performed by Saige Rivera MD at OR [facility] EVAL NEUROSTIM PULSE GEN, W/ REPROGRAM N/A 01/12/2019 NEUROSTIMULATOR PULSE GENERATOR/ TRANSMITTER, WITH INTRAOPERATIVE OR SUBSEQUENT PROGRAMMING performed by Saige Rivera MD at OR [facility] IMPLANT EPIDURAL NEUROELECTRODES N/A 12/08/2018 PERCUTANEOUS IMPLANTATION NEUROSTIMULATOR EPIDURAL performed by Saige Rivera MD at OR [facility] IMPLANT EPIDURAL NEUROELECTRODES N/A 01/12/2019 PERCUTANEOUS IMPLANTATION NEUROSTIMULATOR EPIDURAL performed by Saige Rivera MD at OR [facility] IMPLANT SPINAL NEURORECEIVER N/A 01/12/2019 INSERTION OR REPLACEMENT SPINAL NEUROSTIMULATOR GENERATOR performed by Saige Rivera MD at OR [facility] INFORMATION Bilateral 2017 cataract removal - March and April INFORMATION 2 surgeries to right wrist MISCELLANEOUS ORDER ([facility] ONLY) Back ?fusion "top to bottom" and neck fusion surgery: Julianna. Total 5-6 surgeries on back MISCELLANEOUS ORDER ([facility] ONLY) Right 1971 Right shoulder fusion - limited ROM MISCELLANEOUS ORDER ([facility] ONLY) Hernia NERVOUS SYSTEM SURGERY NEC Left 04/29/2017 UNLISTED PROCEDURE NERVOUS SYSTEM performed by Daquan Ang Jr., MD at OR [facility] REPAIR RUPTURED ROTATOR CUFF, CHRON Left 04/29/2017 REPAIR CHRONIC ROTATOR CUFF OPEN performed by Daquan Ang Jr., MD at OR [facility] SHOULDER ARTHROSCOPY SURGERY Left 04/29/2017 ARTHROSCOPY SHOULDER DISTAL CLAVICLE RESECTION performed by Daquan Ang Jr., MD at OR [facility] SHOULDER ARTHROSCOPY/DECOMPRESSION Left 04/29/2017 ARTHROSCOPY SHOULDER SUBACROMIAL DECOMPRESSION performed by Daquan Ang Jr., MD at OR [facility] SMALL BOWEL ENDOSCOPY DIAGNOSTIC N/A 10/01/2023 multiple bleeding angioectasiais duodenum, jejunum/repeat 12 weeks/SMALL INTESTINE ENDOSCOPY DIAGNOSTIC performed by Britni Weston DO at OR [facility] Family History Problem Relation Name Age of Onset Arthritis Father OA No Past Hx Father unaware of family history of skin cancer, melanoma, or skin diseases Has patient ever had cancer? No Social History Tobacco Use Smoking status: Former Current packs/day: 0.00 Types: Cigarettes, Pipe Quit date: 03/23/1982 Years since quittin.0 Smokeless tobacco: Former Quit date: 10/14/1999 Substance Use Topics Alcohol use: Yes Alcohol/week: 1.0 standard drink of alcohol Types: 1 12 oz of beer per week Comment: 3 beer a week Vaping/E-Cigarette Use Vaping/E-Cigarette Use Never User Vaping/E-Cigarette Substances Vaping/E-Cigarette Devices Tobacco/Alcohol screening completed today? Yes Hospital Care: Admissions (within the last year): Hospital, 2 times for anemia ER within 30 days: No Does the patient have an Advance Directives/Living Will? No. Does the patient want information? Yes. Information given to patient Last Physical Exam: Last physical exam: 12/23/2023 Does patient see primary provider regularly? Yes Does patient see other providers? Yes, Specialist Patient Care Team updated? Yes Review of patient's allergies indicates: No Known Allergies Immunization History Administered Date(s) Administered COVID-19 mRNA, LNP-s, No Preserve, 2-Dose Series (Moderna) 11/18/2020, 12/17/2020 Pneumococcal Conjugate Vacc, 13 Valent (Prevnar) 01/10/2015, 07/27/2019 Pneumococcal Polysaccharide PPV23 (Pneumovax) 04/22/2008 Seasonal Influenza Virus Vaccine, Unspecified Formulation 07/14/2020 Seasonal Influenza, Quadrivalent Hd (Fluzone Hd) 08/28/2021, 07/24/2022, 06/25/2023 Seasonal Influenza, Quadrivalent, No Preserve, IM 09/29/2015, 11/30/2016 Seasonal Influenza, Split, IIV3, With Preserve, Inj 07/30/2011, 07/31/2012, 08/25/2013, 07/01/2014,07/08/2017 Seasonal Influenza, Trivalent, Adjuvanted, 65+ yrs 07/27/2019 TDAP (age 10 and older)(Boostrix) 05/17/2015, 12/23/2020 Varicella Zoster Vaccine (Adult) 11/04/2014 Zoster Vaccine Recombinant (Shingrix) 07/31/2019, 03/23/2021 Current Outpatient Medications Medication Sig Dispense Refill Acetaminophen 500 MG Oral Tablet (TYLENOL) TAKE TWO TABLETS BY MOUTH PRN Folic Acid 400 MCG Oral Tablet Take 1 Tablet by mouth in the morning. 90 Tablet 2 Polyethylene Glycol 3350 17 GM Oral Packet (MiraLax) Take 1 Packet by mouth daily as needed for Constipation. Iron 240 (27 Fe) MG Oral Tablet [...] mouth in the morning. 200 Capsule 1 CPAP every night at bedtime. No current facility-administered medications for this visit. Patient Active Problem List Diagnosis HTN, goal below 150/90 Dyslipidemia, goal LDL below 70 DDD (degenerative disc disease), cervical DDD (degenerative disc disease), lumbar Gastroesophageal reflux disease without esophagitis Hiatal hernia FREDI (obstructive sleep apnea) Iron deficiency anemia due to chronic blood loss Chronic right shoulder pain Severe obesity with body mass index (BMI) of 35.0 to 39.9 with serious comorbidity (HCC) RLS (restless legs syndrome) History of iron deficiency anemia Postlaminectomy syndrome, lumbar region Chronic right-sided thoracic back pain Hip pain, right Nocturia S/P insertion of spinal cord stimulator Hearing loss Symptomatic anemia Orthostatic hypotension Tachycardia Sacroiliitis (HCC) AVM (arteriovenous malformation) of duodenum, acquired Gastrointestinal hemorrhage Dizziness Medication Compliance: Patient is able to obtain all of his medications? Yes Patient takes medications as prescribed? Yes Patient manages own medications: Yes Patient uses a pill box? Yes, refill(s) completed by self Dental Exam: No Eye Screening: Yes: Every 6 mos Are you having trouble with hearing? Yes Do you use an assistive device to help your hearing? Yes Exercise Screening: exercises 5-6 times per week Nutrition Assessment: Eats a balanced diet and 2 and a snack Pain Screening: Are you having any pain? No Sleep Screening Tool 'STOP': Do you snore? Yes Do you feel fatigued during the day? Yes Do you wake up feeling like you haven't slept? Yes Have you been told you stop breathing at night? Yes Do you gasp for air or choke while sleeping? Yes Have you been told you have Sleep Apnea? Yes Do you have high blood pressure or are on medication(s) to control high blood pressure? Yes SCORE: If you check YES to two or more questions, make a referral for Obstructive Sleep Apnea Patient has a cpap machine, is noncompliant with wearing it Patient and Caregiver Support System: Patient lives with a spouse Means of Transportation: Drives. Not a concern. Patient lives in One Story - with basement stairs: one flight Community Resources: Not Applicable Functional Status and ADL Skills: Has patient ever had an amputation? No Functional Assessment: 90- Able to carry on normal activity, minor symptoms of disease Ambulation: Patient ambulates without assistive device. Independent Dressing: Gets clothes and dresses without any assistance: Independent Able to move freely in chair or bed including turning over: Independent Repositioning (bed or chair): Not applicable Transfers: Independent Toileting: Goes to bathroom, uses toilet, arranges clothes and returns without any assistance: Independent Toileting: continent of bladder and continent of bowel Feeding: Self Bathing: Self; Not Applicable Requires none assistance with ADLs. Instrumental ADL's: Shopping: Independent Housekeeping: Independent Handling Finances: Independent DME Vendor Name: [employer] Fall Risk Assessment: Can the patient demonstrate that he can stand from a sitting position? Yes Has the patient had a fall within the last 6 months? No Does the patient have a problem with his gait or balance? Yes Does the patient take 4 or more prescription medicines? Yes Does the patient use sedatives or narcotics? No Fall Risk Factors Present: Uses more than 4 medications Balance or gait disturbances Older than age 70 Ixb-Xi-aoj-Go Test: Time began at 0750. Patient stood from sitting position and walked approximately 10 feet, returned and sat down. Total time for urc-tm-mxt-go test was 20 seconds. Ewk-Fq-hae-Go Test completed? Yes Gender Specific Preventative Plan: Health Maintenance Topic Date Due COVID-19 Vaccine (3 - 2022- season) 2023 GFR 03/06/2025 Depression Screening 03/13/2025 Albumin/Creatinine Ratio 05/20/2026 DTaP,Tdap,and Td Vaccines (3 - Td or Tdap) 12/23/2030 Influenza Vaccine (FLU shot) Completed Zoster Vaccines Completed Pneumococcal Vaccine: 65+ Years Completed Hepatitis B Aged Out MENINGOCOCCAL (MENACTRA/MENVEO) Aged Out GARDASIL-HPV IMMUNIZATION SERIES Aged Out Follow Up/ Referrals/Handouts: Exercise screening - If poor exercise habits, provide exercise handouts Nutrition assessment -. Education Provided and Handouts Provided Routine general medical examination at a health care facility (Primary) -AWV Completed HTN, goal below 150/90 Blood Pressure at today's visit: BP Readings from Last 1 Encounters: 03/13/24 140/74 -Stable. Continue with medication as prescribed. Dyslipidemia, goal LDL below 70 Lipid Panel Results: Results for orders placed or performed in visit on 01/27/16 LIPID PANEL Result Value Ref Range HOURS FASTING 12 hours Triglycerides 136 <200 mg/dL Cholesterol 153 <200 mg/dL HDL Cholesterol 38 (L) >39 mg/dL Cholesterol-HDL Ratio 4.0 LDL Cholesterol 88 0 - 129 mg/dL Results for orders placed or performed in visit on 05/14/23 LIPID PANEL WITH DIRECT LDL IF TG IS HIGH Result Value Ref Range Triglycerides 88 <=174 mg/dL Cholesterol 105 <200 mg/dL HDL Cholesterol 34 (L) >39 mg/dL Non-HDL Cholesterol 71 <=159 mg/dL LDL Cholesterol 53 <=129 mg/dL -Stable. Continue with medication as prescribed. FREDI (obstructive sleep apnea) -non compliant with CPAP Iron deficiency anemia due to chronic blood loss -Stable. Continue with medication as prescribed. RLS (restless legs syndrome) -Stable. Continue with medication as prescribed. Bilateral hearing loss, unspecified hearing loss type -wears bilateral hearing aides. Follow Up: Return in 1 year (on 03/13/2025) for 12 month Subsequent Adult Wellness Visit. | For: 12 month Subsequent Adult Wellness Visit | Check-out note: 12 month Subsequent Adult Wellness Visit Would patient like to schedule next AWV visit? Yes Nell Ortiz, RN AD8 Dementia Screening Interview Person answering questions: patient Remember, "Yes, a change" indicates that there has been a change in the last several years caused by cognitive (thinking and memory) problems 1. Problems with judgement (eg: problems making decisions, bad financial decisions, problems with thinking). No (0) 2. Less interest in hobbies/activities. No (0) 3. Repeats the same things over and over (questions, stories, or statements). No (0) 4. Trouble learning how to use a tool, appliance, or gadget (eg: VCR, computer, microwave, remote control). No (0) 5. Forgets correct month or year. No (0) 6. Trouble handling complicated financial affairs (eg: balancing checkbook, income taxes, paying bills). No (0) 7. Trouble remembering appointments. No (0) 8. Daily problems with thinking and/or memory. No (0) TOTAL AD8: 0 - AD8 Dementia Screening Score The final score is a sum of the number items marked "Yes, A Change". 0 - 1: Normal cognition; 2 or greater: Cognitive impairments is likely to be present - further testing required documented in this encounter Plan of Treatment Upcoming Encounters Date Type Department Care Team (Late st Contact Info) Description 03/16/2024 8:00 AM EDT Hem/Onc Treatment Hematology/Oncology Treatment, [address] [place] [address] [facility], Chair2 Hem Onc [address] [place], [place] [address] [address] 03/16/2024 10:40 AM EDT Office Visit [address] [place] [phone] [facility] [address] 03/20/2024 11:30 AM EDT Hem/Onc Treatment Hematology/Oncology Treatment, [address], [place] [address] [facility], Chair1 Hem Onc [address] [place] [address] 03/27/2024 8:30 AM EDT Hem/Onc Treatment Hematology/Oncology Treatment, [address], [place] [address] [facility], Chair2 Hem Onc [address] [place] [address] [place] [address] 04/01/2024 8:00 AM EDT Hem/Onc Treatment Hematology/Oncology Treatment, [address], [place] [address] [facility], Chair2 Hem Onc [address] [place] [address], [place] [address] 04/03/2024 8:00 AM EDT Laboratory Laboratory, [address] [phone] [facility], Lab [address] [place] [address] 04/07/2024 4:00 PM EDT Telemedicine Hematology Oncology, [place] [address] [address] [place] [address] Roe Galarza MD [address] [place] [phone] 04/10/2024 10:20 AM EDT Office Visit [address] [place] [phone] Praveena Banuelos, JONATHAN [address] [facility] [place] [address] 05/08/2024 9:00 AM EDT Laboratory Laboratory, [facility] [address] [facility], [place] [phone] [facility], Lab [address] [facility], [place] [address] 06/18/2024 9:30 AM EDT Office Visit Gastroenterology, [facility] [address] [place] [phone] Marlene Bruno [facility]C [facility] [address] 03/19/2025 9:00 AM EDT Nurse Only Ancillary 1st Floor, [place] [address] [facility] [place] [address] [place], Annual Wellness 2 21 [facility] [place] [address] Health Maintenance Due Date Last Done Comments COVID-19 Vaccine ( season) 2023 12/17/2020, 11/18/2020 GFR 03/06/2025 03/06/2024, 0304/2024, 12/17/2023, Additional history exists Depression Screening 03/13/2025 03/13/2024 [...] this encounter Medical Devices Implanted Type Area Coke Drawer Hand Device Identifier Shelf Expiration Date Model / Serial / Lot [employer] - [id number] Implanted:Qty: 2 on 04/29/2017 by Daquan Ang MD at OR [facility] Left: Shoulder [employer] 12/11/2018 [id number] F / / [id number] [place] 4.5x24mm - [id number] Implanted:Qty: 2 on 04/29/2017 by Daquan Ang MD at OR [facility] Left: Shoulder [employer] 12/11/2018 AR-1922BC / / [id number] Clik X Mri Ancor Implanted:Qty: 1 on 01/12/2019 by Saige Rivera MD at OR [facility] N/A: Back [employer] : PAIN MGMT 11/17/2020 SC-4319 / / [id number] Avista Mri 56 Cm 8 Contact Lead Kit Implanted:Qty: 1 on 01/12/2019 by Saige Rivera MD at OR [facility] N/A: Back [employer] : PAIN MGMT 10/30/2020 SC-2408-5 6 / [id number] / Avista Mri 56 Cm 8 Contact Lead Kit Implanted:Qty: 1 on 01/12/2019 by Saige Rivera MD at OR [facility] N/A: Back [employer] : PAIN MGMT 10/30/2020 SC-2408-5 6 / [id number] / Generator Implantable Pulse - [id number] Implanted:Qty: 1 on 01/12/2019 by Saige Rivera MD at OR [facility] N/A: Back [employer] : PAIN MGMT 10/16/2020 [id number] / / Duraclip 16mm Xlg Repostn - [id number] Implanted:Qty: 1 on 08/16/2023 by Ingrid Santiago MD at ENDOSCOPY [facility] [id number] 02/03/2025 DC023 5W / / [id number] Duraclip 16mm Xlg Repostn - [id number] Implanted:Qty: 1 on 08/16/2023 by Ingrid Santiago MD at ENDOSCOPY [facility] [id number] 04/15/2024 DC023 5W / / [id number] Catheter Hemostatic 235cm 2.8mm 11mm Cl[address] Latexfree - [id number] Implanted:Qty: 1 on 12/04/2023 by Donna Parker MD at OR [facility] [employer] : ENDOSCOPY [id number] 12/30/2025 [id number] / / [id number] Catheter Hemostatic 235cm 2.8mm 11mm Clip [address] Latexfree - [id number] Implanted:Qty: 1 on 12/04/2023 by Donna Parker MD at OR [facility] [employer] : ENDOSCOPY [id number] 12/30/2025 [id number] / / [id number] Catheter Hemostatic 235cm 2.8mm 11mm Cl[address] Latexfree - [id number] Implanted:Qty: 1 on 12/04/2023 by Donna Parker MD at OR [facility] [employer] : ENDOSCOPY [id number] 12/30/2025 [id number] / / [id number] documented as of this encounter Visit Diagnoses Diagnosis Routine general medical examination at a health care facility- Primary HTN, goal below 150/90 Dyslipidemia, goal LDL below 70 Other and unspecified hyperlipidemia FREDI (obstructive sleep apnea) Obstructive sleep apnea (adult) (pediatric) Iron deficiency anemia due to chronic blood loss Iron deficiency anemia secondary to blood loss (chronic) RLS (restless legs syndrome) Restless legs syndrome (RLS) Bilateral hearing loss, unspecified hearing loss type documented in this encounter Advance Directives * [...] Advance Directives occurred with: Patient Care Teams Tooth Polisher Relationship Specialty Start Date End Date Praveena Banuelos CRNP [address] [place] [id number] PCP - General Nurse Practitioner 05/01/23 documented as of this encounter
--- OUTSIDE RECORDS SUMMARY | 2024-04-08 08:59 | External Medical Summary | Summary of Care ---
Author Name Unknown Organization [facility] Address [address] [place] [address] Phone [phone] Care Team Providers Care Spring Coiler Hand Name Role Phone Praveena Banuelos Primary Care Provider +1- [phone] Reason for Visit * Reason Comments Outpatient Testing Encounter Details Date Type Department Care Team (Late st Contact Info) Description 03/11/2024 11:40 AM EDT Laboratory Laboratory, [facility] [address] [place] [phone] [facility], Lab [address] [place], [place] [id number] Micturition frequency Allergies No known active allergiesdocumented as of this encounter (statuses as of 03/11/2024) Medications Medication Sig Dispensed Refills Start Date [...] Active CPAP every night at bedtime. Active DULoxetine HCl 60 MG Oral Capsule Delayed Release Particles (Cymbalta) Take 2 Capsules by mouth in the morning. 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 Sacroiliitis 08/30/2023 Tachycardia 08/28/2023 Symptomatic anemia 08/13/2023 Orthostatic hypotension 08/13/2023 Hearing loss 10/16/2021 S/P insertion of spinal cord stimulator 08/28/20 21 Overview: 08/28/2021 L flank subcut device (working) Monitored by [email or web address] Last Assessment & Plan: Monitored by [email or web address] Nocturia 04/24/2021 Last Assessment & Plan: About [...] as of this encounter (statuses as of 03/11/2024) Resolved Problems Problem Noted Date Diagnosed Date [...] as of this encounter (statuses as of 03/11/2024) Immunizations Name Administration Dates Next Due COVID-19 [...] AM EDT Nurse Only Ancillary 1st Floor, [place] [facility] [address] [place], [facility] Wellness 2 21 [facility] [place] [address] 03/16/2024 8:00 AM EDT Hem/Onc Treatment Hematology/[address], [address] [address] [facility], Chair2 Hem Onc [address] [place], [place] [address]K[place]AN [address] 03/16/2024 10:40 AM EDT Office Visit [facility] 21 [facility] [phone] Praveena Banuelos CRNP 21 [facility] [address] 03/20/2024 11:30 AM EDT Hem/Onc Treatment Hematology/Oncology Treatment, [address] [address] [facility], Chair1 Hem Onc [address] [place], [place] [address]KARNA [address] 03/27/2024 8:30 AM EDT Hem/Onc Treatment Hematology/Oncology Treatment, [address] [address] [facility], Chair2 Hem Onc [address] [place], [place] [address]K[place]AN [address] 04/01/2024 8:00 AM EDT Hem/Onc Treatment Hematology/Oncology Treatment, [address] [address] [facility], Chair2 Hem Onc [address] [place], [place] [address]KARAN [address] 04/03/2024 8:00 AM EDT Laboratory Laboratory, [address], [place] [address] [facility], Lab [address] [place] [address] 04/07/2024 4:00 PM EDT Telemedicine Hematology Oncology, [place] [address] [place] [address] Roe Galarza MD [address] [place] [phone] 04/10/2024 10:20 AM EDT Office Visit [facility] [address] [place] [phone] Praveena Banuelos CRNP [address] [place] [address] 05/08/2024 9:00 AM EDT Laboratory Laboratory, [address] [address] [facility], Lab [address] [place] [address] 06/18/2024 9:30 AM EDT Office Visit Gastroenterology, [facility] 310 [facility] [phone] Marlene Bruno PA-C [address] [place] [address] [place] [phone] Pending Results Name Type Priority Associated Diagnoses Date /Time URINALYSIS, REFLEX TO CULTURE (NOT FOR NEUTROPENIC PATIENTS) Lab STAT Micturition frequency 03/11/2024 11:35 AM EDT URINALYSIS, REFLEX TO CULTURE (CUP ONLY) Lab STAT Micturition frequency 03/11/2024 11:35 AM EDT URINALYSIS, REFLEX TO CULTURE Lab STAT Micturition frequency 03/11/2024 11:35 AM EDT Health Maintenance Due Date Last Done Comments COVID-19 Vaccine (3 - 2022- season) 2023 12/17/2020, 11/18/2020 Depression Screening 12/19/2024 12/20/2023 GFR 03/06/2025 03/06/2024, 04/2024, 12/17/2023, Additional history exists Albumin/Creatinine Ratio 05/20/2026 023, [...] this encounter Medical Devices Implanted Type Area Electrical Fitter Device Identifier Shelf Expiration Date Model / Serial / Lot Love Bio Composite - [id number] Implanted:Qty: 2 on 04/29/2017 by Daquan Ang MD at OR [facility] Left: Shoulder [employer] 12/11/2018 AR-1927BC F / / [id number] [place] Pushlock 4.5x24mm - [id number] Implanted:Qty: 2 on 04/29/2017 by Daquan Ang MD at OR [facility] Left: Shoulder [employer] 12/11/2018 AR-1922BC / / [id number] Clik X Mri Ancor Implanted:Qty: 1 on 01/12/2019 by Saige Rivera MD at OR [facility] N/A: Back [employer] : PAIN MGMT 11/17/2020 AK-4319 / / [id number] Avista Mri 56 Cm 8 Contact Lead Kit Implanted:Qty: 1 on 01/12/2019 by Saige Rivera MD at OR [facility] N/A: Back [employer] : PAIN MGMT 10/30/2020 SC-2408-5 6 / [id number] / Avista Mri 56 Cm 8 Contact Lead Kit Implanted:Qty: 1 on 01/12/2019 by Saige Rivera MD at OR [facility] N/A: Back [employer] : PAIN MGMT 10/30/2020 SC-2408-5 6 [id number] / Generator Implantable Pulse - [id number] Implanted:Qty: 1 on 01/12/2019 by Saige Rivera MD at OR [facility] N/A: Back [employer] : PAIN MGMT 10/16/2020 [id number] / / Duraclip 16mm Xlg Repostn - [id number] Implanted:Qty: 1 on 08/16/2023 by Ingrid Santiago MD at ENDOSCOPY [facility] [employer] BRIT[employer] [id number] 02/03/2025 DC023 5W / / [id number] Duraclip 16mm Xlg Repostn - [id number] Implanted:Qty: 1 on 08/16/2023 by Ingrid Santiago MD at ENDOSCOPY [facility] [employer] BRIT[employer] [id number] 04/15/2024 DC023 5W / / [id number] Catheter Hemostatic 235cm 2.8mm 11mm [address] Latexfree - [id number] Implanted:Qty: 1 on 12/04/2023 by Donna Parker MD at OR [facility] [employer] : ENDOSCOPY [id number] 12/30/2025 [id number] / / [id number] Catheter Hemostatic 235cm 2.8mm [address]mm [address] Latexfree - [id number] Implanted:Qty: 1 on 12/04/2023 by Donna Parker MD at OR [facility] [employer] : ENDOSCOPY [id number] 12/30/2025 [id number] / / [id number] Catheter Hemostatic 235cm 2.8mm [address]mm [address] Latexfree - [id number] Implanted:Qty: 1 on 12/04/2023 by Donna Parker MD at OR [facility] [employer] : ENDOSCOPY [id number] 12/30/2025 [id number] / / [id number] documented as of this encounter Visit Diagnoses Diagnosis Micturition frequency Urinary frequency documented in this encounter Advance Directives * [...] Advance Directives occurred with: Patient Care Teams Spring Coiler Hand Relationship Specialty Start Date End Date Praevena Banuelos CRNP [address] [phone] PCP - General Nurse Practitioner 05/01/23 documented as of this encounter
--- OUTSIDE RECORDS SUMMARY | 2024-04-08 08:59 | External Medical Summary | Summary of Care ---
Author Name Unknown Organization [facility] Address [address] [facility] [place] [address] Phone [phone] Care Team Providers Care Administrative Tech Name Role Phone Praveena Banuelos Primary Care Provider +1- [phone] Reason for Visit * Reason Comments Treatment Venofer * Evaluate & Treat - Unlimited Visits (Within 10 days (routine)) - Authorized Specialty Diagnoses / Procedures Referred By Collette t Referred To Contact Hematology/Oncology / Hematology Oncology Diagnoses Symptomatic anemia Sukhjinder Cazares MD [address] [place], [place] [address]ist [place] [address] Referral ID Status Reason Start Date Expiration Date Visits Requested Visits Authorized [id number] Authorized Specialty Services Required 08/17/2023 08/27/2024 [id number] Encounter Details Date Type Department Care Team (Latest Contact Info) Description 03/16/2024 8:00 AM EDT Hem/Onc Treatment Hematology/Oncology Treatment, [address] [place] [address] [facility], Chair2 Hem Onc [address] [place] [address] [place] [address] Symptomatic anemia* Allergies No known active allergiesdocumented as of this encounter (statuses as of 03/16/2024) Medications Medication Sig Dispensed Refills Start Date [...] as of this encounter (statuses as of 03/16/2024) Active Problems Problem Noted Date Diagnosed Date Dizziness 12/23/2023 Gastrointestinal hemorrhage 10/01/2023 AVM (arteriovenous malformation) of duodenum, 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 Sacroiliitis 08/30/2023 Tachycardia 08/28/2023 Symptomatic anemia 08/13/2023 Orthostatic hypotension 08/13/2023 Hearing loss 10/16/2021 S/P insertion of spinal cord stimulator 08/28/20 21 Overview: 08/28/2021 L flank subcut device (working) Monitored by [facility] Last Assessment & Plan: Monitored by Qriously Nocturia 04/24/2021 Last Assessment & Plan: About [...] as of this encounter (statuses as of 03/16/2024) Resolved Problems Problem Noted Date Diagnosed Date [...] as of this encounter (statuses as of 03/16/2024) Immunizations Name Administration Dates Next Due COVID-19 [...] Sign Reading Time Taken Comments Blood Pressure 145/74 03/16/2024 9:43 AM EDT Pulse 71 03/16/2024 9:43 AM EDT Temperature 36.8 C (98.2 F) 03/16/2024 9:43 AM ED T Respiratory Rate 18 03/16/2024 9:43 AM EDT Oxygen Saturation - - Inhaled [...] Nursing Notes * Marilyn Arzate LPN - 03/16/2024 9:43 AM EDT Tolerated infusion well. No distress. VSS. Patient left IVC by ambulating. Unaccompanied. Voiced no complaints. Marilyn Arzate LPN 03/16/2024 9:48 AM * Marilyn Arzate LPN - 03/16/2024 7:58 AM EDT Drew 4. Pt presents for Venofer (10/17). Had Venofer in past with no side effects. documented in this encounter Plan of Treatment Upcoming Encounters Date Type Department Care Team (Late st Contact Info) Description 03/16/2024 10:40 AM EDT Office Visit [place] [address] [place] [address] [phone] Praveena Banuelos CRNP [address] [phone] 03/20/2024 11:30 AM EDT Hem/Onc Treatment Hematology/Oncology Treatment, [address] [address] [facility], Chair1 Hem Onc [address] [place] [address] 03/27/2024 8:30 AM EDT Hem/Onc Treatment Hematology/Oncology Treatment, [address] [address] [facility], Chair2 Hem Onc [address] [place] [address] 04/01/2024 8:00 AM EDT Hem/Onc Treatment Hematology/Oncology Treatment, [address] [address] [facility], Chair2 Hem Onc [address] [place] [address] 04/03/2024 8:00 AM EDT Laboratory Laboratory, [address] [phone] [facility], Lab [address] [place] [address] 04/07/2024 4:00 PM EDT Telemedicine Hematology Oncology, [place] [address] [place] [address] Roe Galarza MD [address] [place] [phone] 04/10/2024 10:20 AM EDT Office Visit [facility] 21 [facility] [place] [phone] Praveena Banuelos CRNP 21 [facility] [place] [address] 05/08/2024 9:00 AM EDT Laboratory Laboratory, [facility] 400 [facility] [place] [phone] [facility], Lab 400 [facility] [address] 06/18/2024 9:30 AM EDT Office Visit Gastroenterology, [facility] [address] [place] [phone] Marlene Bruno PA-C 310 [facility] [place] [address] 03/19/2025 9:00 AM EDT Nurse Only Ancillary 1st Floor, [place] 21 [place] [address] [place], Annual Wellness 2 21 [facility] [place] [address] Health Maintenance Due Date Last Done Comments COVID-19 Vaccine ( - 2022- season) 2023 12/17/2020, 11/18/2020 GFR [...] this encounter Medical Devices Implanted Type Area Granite Worker Device Identifier Shelf Expiration Date Model / Serial / Lot Love Bio Composite - [id number] Implanted:Qty: 2 on 04/29/2017 by Daquan Ang MD at OR [facility] Left: Shoulder [employer] 12/11/2018 AR-1927BC F / / [id number] [place] Pushlock 4.5x24mm - [id number] Implanted:Qty: 2 on 04/29/2017 by Daquan Ang MD at OR [facility] Left: Shoulder [employer] 12/11/2018 AR-1922BC / / [id number] Clik X Mri Ancor Implanted:Qty: 1 on 01/12/2019 by Saige Rivera MD at OR [facility] N/A: Back [employer] : PAIN MGMT 11/17/2020 SC-4319 / / [id number] Avista Mri 56 Cm 8 Contact Lead Kit Implanted:Qty: 1 on 01/12/2019 by Saige Rivera MD at OR [facility] N/A: Back [employer] : PAIN MGMT 10/30/2020 SC-2408-5 6 / [id number] / Avista Mri 56 Cm 8 Contact Lead Kit Implanted:Qty: 1 on 01/12/2019 by Saige Rivera MD at OR [facility] N/A: Back [employer] : PAIN MGMT 10/30/2020 SC-2408-5 6 / [id number] / Generator Implantable Pulse - [id number] Implanted:Qty: 1 on 01/12/2019 by Saige Rivera MD at OR [facility] N/A: Back [employer] : PAIN MGMT 10/16/2020 [id number] / / Duraclip 16mm Xlg Repostn - [id number] Implanted:Qty: 1 on 08/16/2023 by Ingrid [facility] [id number] 02/03/2025 DC023 5W / / [id number] Duraclip 16mm Xlg Repostn - [id number] Implanted:Qty: 1 on 08/16/2023 by Ingrid Santiago MD at ENDOSCOPY [facility] CONMED [employer] [id number] 04/15/2024 DC023 5W / / [id number] Catheter Hemostatic 235cm 2.8mm [address]mm [address] Latexfree - [id number] Implanted:Qty: 1 on 12/04/2023 by Donna Parker MD at OR [facility] [employer] : ENDOSCOPY [id number] 12/30/2025 [id number] / / [id number] Catheter Hemostatic 235cm 2.8mm [address]mm [address] Latexfree - [id number] Implanted:Qty: 1 on 12/04/2023 by Donna Parker MD at OR [facility] [employer] : ENDOSCOPY [id number] 12/30/2025 [id number] / / [id number] Catheter Hemostatic 235cm 2.8mm 11mm [address] Latexfree - [id number] Implanted:Qty: 1 on 12/04/2023 by Donna Parker MD at OR [facility] [employer] : ENDOSCOPY [id number] 12/30/2025 [id number] / / [id number] documented as of this encounter Visit Diagnoses Diagnosis Symptomatic anemia- Primary documented in this encounter Administered Medications Active Administered Medications - up to 3 most recent administrations Medication Order MAR Action Action Date Dose Rate Site diphenhydrAMINE (Benadryl) inj 50 mg 50 mg, IV Push, ONCE PRN Other, Hypersensitivity Reaction, Starting on Sat03/16/24 at 0751, Until Sat03/17/24 at 0750, For 24 hours EPINEPHrine 1 MG/ML inj 0.3 mg 0.3 mg, Intramuscular, ONCE PRN Other, Hypersensitivity Reaction or Anaphylaxis, Starting on Sat03/16/24 at 0751, Until Sat03/17/24 at 0750, For 24 hours hEParin 100 UNIT/ML Lock Flush inj 500 Units 500 Units (5 mL), IV Lock, PRN Other, IV Flush, Starting on Sat03/16/24 at 0751, Until Sat03/17/24 at 0750, For 24 hours, Do not flush if lock, PICC, or central line not in place; IV infusing or unable to flush. Hydrocortisone Sod Suc (PF) (Solu-Cortef) inj 100 mg 100 mg, IV Push, ONCE PRN Other, Hypersensitivity Reaction, Starting on Sat03/16/24 at 0751, Until Sat03/17/24 at 0750, For 24 hours NSS infusion 500 mL, Intravenous, at 50 mL/hr, CONTINUOUS, Starting on Sat03/16/24 at 0900, Until Sat03/16/24 at 1859 Start Infusion 03/16/2024 8:06 AM EDT 500 mL 50 mL/hr oxygen GAS Inhalation, OXYGEN, First dose on Sat03/16/24 at 0830, Until Discontinued, Device/Managed by: Low [...] Push, PRN Other, IV Flush, Starting on Sat03/16/24 at 0751, Until Sat03/17/24 at 0750, For 24 hours, Do not flush if lock, PICC, or central line not in place; IV infusing or unable to flush. Inactive Administered Medications - up to 3 most recent administrations Medication Order MAR Action Action Date Dose Rate Site Iron Sucrose (Venofer) 300 mg in NSS 250 mL ivpb 300 mg, IV Piggyback, ONCE, 1 dose, On Sat03/16/24 at 0930, Administer over 90 Minutes Start Infusion 03/16/2024 8:08 AM EDT 300 mg 180 mL/hr documented [...] Advance Directives occurred with: Patient Care Teams Administrative Tech Relationship Specialty Start Date End Date Praveena Banuelos CRNP [address] [phone] PCP - General Nurse Practitioner 05/01/23 documented as of this encounter
--- OUTSIDE RECORDS SUMMARY | 2024-04-08 08:59 | External Medical Summary | Summary of Care ---
Author Name Unknown Organization [facility] Address [address] [facility] [place] [address] Phone [phone] Care Team Providers Care Cardiac Sonographer Name Role Phone Maria Elena Hylton Primary Care Provider +1- [phone] Reason for Visit * Reason Comments Medication Refill Encounter Details Date Type Department Care Team (Late st Contact Info) Description 03/10/2024 Refill [facility] [place] 21 [place] [phone] Red Vega PA-C 21 [facility] [place] [address] Allergies No known active allergiesdocumented as of this encounter (statuses as of 03/12/2024) Medications Medication Sig Dispensed Refills Start Date End Date Status Acetaminophen 500 MG Oral Tablet (TYLENOL) TAKE TWO TABLETS BY MOUTH PRN 0 Active Folic Acid 400 MCG Oral TabletIndications: Folic acid deficiency Take 1 Tablet by mouth in the morning. 90 Tablet 2 3 Active Polyethylene Glycol 3350 17 GM Oral [...] mouth in the morning. 90 Tablet 1 3 Active Famotidine 20 MG Oral Tablet (Pepcid)Indication s:Gastroesophageal reflux disease without esophagitis TAKE ONE TABLET BY MOUTH IN THE MORNING AND BEFORE BEDTIME. 200 Tablet 2 4 Active Octreotide Acetate 10 MG Intramuscular Kit (SandoSTATIN [place]) Inject 10 mg into a large muscle every month. 3 Kit 3 4 Active Additional Information Patient taking differently:10 mg Intramuscular QMONTH,12/23/23 getting first shot tomorrow 12/23, Reported on 12/23/2023 Atorvastatin Calcium 20 MG Oral Tablet (Lipitor)Indicatio ns:Dyslipidemia, goal LDL below 100 TAKE ONE TABLET BY MOUTH EVERY MORNING 90 Tablet 3 4 Active Omeprazole 40 MG Oral Capsule Delayed Release (PriLOSEC)Indicati ons:Gastroesophage al reflux disease without esophagitis Take 1 Capsule by mouth daily before breakfast. 90 Capsule 3 4 Active rOPINIRole HCl 0.5 MG Oral Tablet (Requip) Take 1 Tablet by mouth at bedtime. 30 Tablet 5 4 Active DULoxetine HCl 60 MG Oral Capsule Delayed Release Particles (Cymbalta) Take 2 Capsules by mouth in the morning. 200 Capsule 1 4 Active DULoxetine HCl 60 MG Oral Capsule Delayed Release Particles (Cymbalta) Take 2 Capsules by mouth in the morning. 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 Sacroiliitis 08/30/2023 Tachycardia 08/28/2023 Symptomatic anemia 08/13/2023 Orthostatic hypotension 08/13/2023 Hearing loss 10/16/2021 S/P insertion of spinal cord stimulator 08/28/20 21 Overview: 08/28/2021 L flank subcut device (working) Monitored by [employer] Last Assessment & Plan: Monitored by [employer] Nocturia 04/24/2021 Last Assessment & Plan: [...] as of this encounter (statuses as of 03/12/2024) Resolved Problems Problem Noted Date Diagnosed Date [...] as of this encounter (statuses as of 03/12/2024) Immunizations Name Administration Dates Next Due COVID-19 [...] encounter Miscellaneous Notes * Telephone Encounter - Maria Elena Hylton CRNP - 03/12/2024 7:17 AM EDTSigned Prescriptions: Disp Refills DULoxetine HCl 60 MG Oral Capsule Delayed *200 Ca*1 Sig: Take 2 Capsules by mouth in the morning. Authorizing Provider: MARIA ELENA HYLTNO * Telephone Encounter - Camilo Hinton [facility] - 03/11/2024 12:15 PM EDTPending Prescriptions: Disp Refills DULoxetine HCl 60 MG Oral Capsule Delayed *200 Ca*1 Sig: Take 2 Capsules by mouth in the morning. * Telephone Encounter - Camilo Hinton [facility] - 03/11/2024 12:15 PM EDT [facility] is currently not authorized to approve refills for the pended medication(s) per refill protocol. Please approve if appropriate. Thank You, Camilo Randle [facility] Clinical Pharmacist [facility] 03/11/2024, 12:15 PM * Telephone Encounter - Camilo Hinton [facility] - 03/11/2024 12:14 PM EDT Pending Prescriptions: Disp Refills DULoxetine HCl 60 MG Oral Capsule Delayed*200 Ca*1 Sig: Take 2 Capsules by mouth in the morning. Last Visit: 01/07/2024 (in office), Visit date not found (telemedicine) Next Visit: 03/16/2024 If no future appointments scheduled, and last appointment is greater than a year ago, please schedule patient for a follow-up appointment Last date the medication was ordered: 08/30/23 Pharmacy: [facility] Is this request for a controlled substance? No Urine Drug Screen: Results for orders placed or performed in visit on 11/10/20 PAIN MANAGEMENT DRUG PANEL, URINE W/ INTERPRETATION Result Value COMPLIANCE INTERP (NOTE) URINE DRUG SCREEN RESULT Amphetamine NEGATIVE Benzodiazepines NEGATIVE Cannabinoids NEGATIVE Cocaine Metabolite NEGATIVE HYDROCODONE NEGATIVE METHADONE METABOLITE NEGATIVE Morphine / Codeine NEGATIVE OXYCODONE NEGATIVE COMMENT THE ABOVE SCREENING RESULTS ARE PRESUMPTIVE AND CAN ONLY BE USED FOR MEDICAL PURPOSES. CONFIRMATORY TESTING IS AVAILABLE UPON REQUEST. Cutoff Concentration URINE VALID INTERP NORMAL CREATININE SILKE 213 Results for orders placed or performed in visit on 11/23/16 TOX SCREEN, URINE, W/ CONFIRMATION Result Value Amphetamine NEGATIVE Barbiturates NEGATIVE Benzodiazepines NEGATIVE Cannabinoids NEGATIVE Cocaine Metabolite NEGATIVE Morphine / Codeine NEGATIVE METHADONE METABOLITE NEGATIVE OXYCODONE NEGATIVE TOX COMMENT THE ABOVE SCREENING RESULTS ARE PRESUMPTIVE AND CAN ONLY BE USED FOR MEDICAL PURPOSES. POSITIVE RESULTS REFLEX TO CONFIRMATORY TESTING. Cutoff Concentration Patient Phone Numbers Labs: Lab Results Component Value Date/Time CREAT 1.1 03/06/2024 09:41 AM CREAT 0.9 03/14/2020 11:39 AM POTASSIUM 4.9 03/06/2024 09:41 AM POTASSIUM 4.8 03/14/2020 11:39 AM TSH 1.64 01/25/2023 12:53 PM TSH 1.69 05/26/2018 09:50 AM LDLCALC 53 05/14/2023 10:57 AM LDLCALC 121 11/08/2020 09:20 AM LDLDIRECT NOT APPLICABLE 11/08/2020 09:20 AM ALT 12 03/06/2024 09:41 AM ALT 32 11/08/2020 09:20 AM HGBA1C 5.6 12/16/2020 04:41 PM HGBA1C 4.6 02/27/2016 10:49 AM documented in this encounter Plan of Treatment Upcoming Encounters Date Type Department Care Team (Late st Contact Info) Description 03/13/2024 8:00 AM EDT Nurse Only Ancillary 1st [facility], [place] [facility] [place] [address] [place], [facility] Wellness 2 21 [place] [address] 03/16/2024 8:00 AM EDT Hem/Onc Treatment Hematology/[address], [address] [address] [facility], Chair2 Hem Onc [address] [place], [place] [address]K[place] [address] 03/16/2024 10:40 AM EDT Office Visit [facility] 21 [facility] [place] [phone] Maria Elena Hylton CRNP [facility] [address] 03/20/2024 11:30 AM EDT Hem/Onc Treatment Hematology/Oncology Treatment, [address] [address] [facility], Chair1 Hem Onc [address] [place], [place] [address]K[place] [address] 03/27/2024 8:30 AM EDT Hem/Onc Treatment Hematology/Oncology Treatment, [address] [address] [facility], Chair2 Hem Onc [address] [place], [place] [address]K[place] [address] 04/01/2024 8:00 AM EDT Hem/Onc Treatment Hematology/Oncology Treatment, [address], [place] [address] [facility], Chair2 Hem Onc [address] [place] [address], [place] [address] 04/03/2024 8:00 AM EDT Laboratory Laboratory, [address] [place] [address] [facility], Lab [address] [place] [address] 04/07/2024 4:00 PM EDT Telemedicine Hematology Oncology, [place] [address] [address] [place] [address] Roe Galarza MD 400 [place] [phone] 04/10/2024 10:20 AM EDT Office Visit [facility] [phone] Maria Elena Hylton CRNP 21 [place] [address] 05/08/2024 9:00 AM EDT Laboratory Laboratory, [address] [address] [facility], Lab [address] [place], [place] [address]K[place] [address] 06/18/2024 9:30 AM EDT Office Visit Gastroenterology, [facility] [address] [facility] [phone] Marlene Bruno PA-C [address] [facility] [address] [address] Health Maintenance Due Date Last Done Comments COVID-19 Vaccine (3 - 2022- season) 2023 12/17/2020, 11/18/2020 Depression Screening 12/19/2024 12/20/2023 GFR 03/06/2025 03/06/2024, 03/0 04/2024, 12/17/2023, Additional history exists Albumin/Creatinine Ratio [...] this encounter Medical Devices Implanted Type Area Preforms Laminator Device Identifier Shelf Expiration Date Model / Serial / Lot Love Bio Composite - [id number] Implanted:Qty: 2 on 04/29/2017 by Daquan Ang MD at OR [facility] Left: Shoulder [employer] 12/11/2018 AR-1927BC F / / [id number] [place] Pushlock 4.5x24mm - [id number] Implanted:Qty: 2 on 04/29/2017 by Daquan Ang MD at OR [facility] Left: Shoulder [employer] 12/11/2018 AR-1922BC / / [id number] Clik X Mri Ancor Implanted:Qty: 1 on 01/12/2019 by Saige Rivera MD at OR [facility] N/A: Back kingsky : PAIN MGMT 11/17/2020 [id number] / / [id number] Avista Mri 56 Cm 8 Contact Lead Kit Implanted:Qty: 1 on 01/12/2019 by Saige Rivera MD at OR [facility] N/A: Back [employer] : PAIN MGMT 10/30/2020 SC-2408-5 6 [id number] / Avista Mri 56 Cm 8 Contact Lead Kit Implanted:Qty: 1 on 01/12/2019 by Saige Rivera MD at OR [facility] N/A: Back [employer] : PAIN MGMT 10/30/2020 SC-2408-5 6 [id number] / Generator Implantable Pulse - [id number] Implanted:Qty: 1 on 01/12/2019 by Saige Rivera MD at OR [facility] N/A: Back [employer] : PAIN MGMT 10/16/2020 [id number] / / Duraclip 16mm Xlg Repostn - [id number] Implanted:Qty: 1 on 08/16/2023 by Ingrid Santiago MD at [facility] [id number] 02/03/2025 DC023 5W / / [id number] Duraclip 16mm Xlg Repostn - [id number] Implanted:Qty: 1 on 08/16/2023 by Ingrid Santiago MD at [facility] [id number] 04/15/2024 DC023 5W / / [id number] Catheter Hemostatic 235cm 2.8mm 11mm [address] Latexfree - [id number] Implanted:Qty: 1 on 12/04/2023 by Donna Parker MD at OR [facility] [employer] : ENDOSCOPY [id number] 12/30/2025 [id number] / / [id number] Catheter Hemostatic 235cm 2.8mm 11mm [address] Latexfree - [id number] Implanted:Qty: 1 on 12/04/2023 by Donna Parker MD at OR [facility] [employer] : ENDOSCOPY [id number] 12/30/2025 [id number] / / [id number] Catheter Hemostatic 235cm 2.8mm 11mm Cl[address] Latexfree - [id number] Implanted:Qty: 1 on 12/04/2023 by Donna Parker MD at OR [facility] SCIENTIFIC : ENDOSCOPY [id number] 12/30/2025 [id number] / / [id number] documented as of this encounter Advance Directives [...] Advance Directives occurred with: Patient Care Teams Cardiac Sonographer Relationship Specialty Start Date End Date Maria Elena Hylton CRNP 21 [place] [address] [address] PCP - General Nurse Practitioner 05/01/23 documented as of this encounter
--- OUTSIDE RECORDS SUMMARY | 2024-04-08 08:59 | External Medical Summary | Summary of Care ---
Author Name Unknown Organization [facility] Address [address] [facility] [place] [address] Phone [phone] Care Team Providers Care Credit Control Clerk Name Role Phone Praveena Banuelos Primary Care Provider +1- [phone] Reason for Visit * Reason Comments Treatment Venofer * Evaluate & Treat - Unlimited Visits (Within 10 days (routine)) - Authorized Specialty Diagnoses / Procedures Referred By Collette t Referred To Contact Hematology/Oncology / Hematology Oncology Diagnoses Symptomatic anemia Sukhjinder Cazares MD [address] [place], [place] [address]ist [place] [address] Referral ID Status Reason Start Date Expiration Date Visits Requested Visits Authorized [id number] Authorized Specialty Services Required 08/17/2023 08/27/2024 [id number] Encounter Details Date Type Department Care Team (Latest Contact Info) Description 03/20/2024 11:30 AM EDT Hem/Onc Treatment Hematology/Oncology Treatment, [address] [place] [address] [facility], Chair1 Hem Onc [address] [place], [place] [address]K[place] fuentes [id number] Symptomatic anemia* Allergies No known active allergiesdocumented as of this encounter (statuses as of 03/20/2024) Medications Medication Sig Dispensed Refills Start Date [...] as of this encounter (statuses as of 03/20/2024) Active Problems Problem Noted Date Diagnosed Date Dizziness 12/23/2023 Gastrointestinal hemorrhage 10/01/2023 AVM (arteriovenous malformation) of duodenum, 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 Sacroiliitis 08/30/2023 Tachycardia 08/28/2023 Symptomatic anemia 08/13/2023 Orthostatic hypotension 08/13/2023 Hearing loss 10/16/2021 S/P insertion of spinal cord stimulator 08/28/20 21 Overview: 08/28/2021 L flank subcut device (working) Monitored by [employer] [facility] Last Assessment & Plan: Monitored by [employer] Nocturia 04/24/2021 Last Assessment & Plan: About [...] as of this encounter (statuses as of 03/20/2024) Resolved Problems Problem Noted Date Diagnosed Date [...] as of this encounter (statuses as of 03/20/2024) Immunizations Name Administration Dates Next Due COVID-19 [...] Sign Reading Time Taken Comments Blood Pressure 160/66 03/20/2024 1:18 PM EDT Pulse 76 03/20/2024 1:18 PM EDT Temperature 36.5 C (97.7 F) 03/20/2024 1:18 PM ED T Respiratory Rate 18 03/20/2024 1:18 PM EDT Oxygen Saturation - - Inhaled Oxygen [...] Nursing Notes * Marilyn Arzate LPN - 03/20/2024 3:25 PM EDT Late entry- Patient left IVC by ambulating. Unaccompanied. Voiced no complaints. Marilyn Arzate LPN 03/20/2024 3:26 PM * Marilyn Arzate LPN - 03/20/2024 11:30 AM EDT [place] 8. Venofer 2/4. Tolerated last infusion without problems. documented in this encounter Plan of Treatment Upcoming Encounters Date Type Department Care Team (Late st Contact Info) Description 03/27/2024 8:30 AM EDT Hem/Onc Treatment Hematology/Oncology Treatment, [place] [address] [place] [address] [facility], Chair2 Hem Onc 400 [place] [address] 04/01/2024 8:00 AM EDT Hem/Onc Treatment Hematology/Oncology Treatment, [address], [place] [address] [facility], Chair2 Hem Onc [address] [place] [address], [place] [address] 04/03/2024 8:00 AM EDT Laboratory Laboratory, [address], [place] [phone] [facility], Lab 400 [place] [address] 04/07/2024 4:00 PM EDT Telemedicine Hematology Oncology, [place] [address] [address] [place] [address] Roe Galarza MD [address] [place] [phone] 05/08/2024 9:00 AM EDT Laboratory Laboratory, [address], [place] [address] [facility], Lab [address] [place] [address] 06/18/2024 9:30 AM EDT Office Visit Gastroenterology, [facility] [address] [facility] [phone] Marlene Bruno PA-C 310 [facility] [address] 08/12/2024 12:20 PM EDT Office Visit [facility] [place] [phone] Praveena Banuelos CRNP 21 [facility] [address] 03/19/2025 9:00 AM EDT Nurse Only Ancillary 1st Floor, [place] 21 [facility] [place] [phone] [place], Annual Wellness 2 21 [address] [place] [phone] Health Maintenance Due Date Last Done Comments [...] this encounter Medical Devices Implanted Type Area Spline Rolling Machine Job Setter Device Identifier Shelf Expiration Date Model / Serial / Lot Corkscrew Bio Composite - [id number] Implanted:Qty: 2 on 04/29/2017 by Daquan Ang MD at OR [facility] Left: Shoulder [employer] 12/11/2018 AR-1927BC F / / [id number] [place] Pushlock 4.5x24mm - [id number] Implanted:Qty: 2 on 04/29/2017 by Daquan Ang MD at OR [facility] Left: Shoulder [employer] 12/11/2018 AR-1922BC / / [id number] Clik X Mri Ancor Implanted:Qty: 1 on 01/12/2019 by Saige Rivera MD at OR [facility] N/A: Back [employer] : PAIN MGMT 11/17/2020 SC-4319 / / [id number] Avista Mri 56 Cm 8 Contact Lead Kit Implanted:Qty: 1 on 01/12/2019 by Saige Rivera MD at OR [facility] N/A: Back [employer] : PAIN MGMT 10/30/2020 SC-2408-5 6 / [id number] / Avista Mri 56 Cm 8 Contact Lead Kit Implanted:Qty: 1 on 01/12/2019 by Saige Rivera MD at OR [facility] N/A: Back [employer] : PAIN MGMT 10/30/2020 SC-2408-5 6 / [id number] / Generator Implantable Pulse - [id number] Implanted:Qty: 1 on 01/12/2019 by Saige Rivera MD at OR [facility] N/A: Back [employer] : PAIN MGMT 10/16/2020 [id number] / / Duraclip 16mm Xlg Repostn - [id number] Implanted:Qty: 1 on 08/16/2023 by Inrgid Santiago MD at [facility] [id number] 02/03/2025 DC023 5W / / [id number] Duraclip 16mm Xlg Repostn - [id number] Implanted:Qty: 1 on 08/16/2023 by Ingrid Santiago MD at [facility] [id number] 04/15/2024 DC023 5W / / [id number] Catheter Hemostatic 235cm 2.8mm 11mm [address] Latexfree - [id number] Implanted:Qty: 1 on 12/04/2023 by Donna Parker MD at OR [facility] [employer] : ENDOSCOPY [id number] 12/30/2025 [id number] / / [id number] Catheter Hemostatic 235cm 2.8mm 11mm [address] Latexfree - [id number] Implanted:Qty: 1 on 12/04/2023 by Donna Parker MD at OR [facility] [employer] : ENDOSCOPY [id number] 12/30/2025 [id number] / / [id number] Catheter Hemostatic 235cm 2.8mm 11mm [address] Latexfree - [id number] Implanted:Qty: 1 on 12/04/2023 by Donna Parker MD at OR [facility] [employer] : ENDOSCOPY [id number] 12/30/2025 [id number] / / [id number] documented as of this encounter Visit Diagnoses Diagnosis Symptomatic anemia- Primary documented in this encounter Administered Medications Active Administered Medications - up to 3 most recent administrations Medication Order MAR Action Action Date Dose Rate Site diphenhydrAMINE (Benadryl) inj 50 mg 50 mg, IV Push, ONCE PRN Other, Hypersensitivity Reaction, Starting on Sat03/20/24 at 1126, Until 03/21/24 at 1125, For 24 hours EPINEPHrine 1 MG/ML inj 0.3 mg 0.3 mg, Intramuscular, ONCE PRN Other, Hypersensitivity Reaction or Anaphylaxis, Starting on Sat03/20/24 at 1126, Until 03/21/24 at 1125, For 24 hours hEParin 100 UNIT/ML Lock Flush inj 500 Units 500 Units (5 mL), IV Lock, PRN Other, IV Flush, Starting on Sat03/20/24 at 1126, Until 03/21/24 at 1125, For 24 hours, Do not flush if lock, PICC, or central line not in place; IV infusing or unable to flush. Hydrocortisone Sod Suc (PF) (Solu-Cortef) inj 100 mg 100 mg, IV Push, ONCE PRN Other, Hypersensitivity Reaction, Starting on Sat03/20/24 at 1126, Until 03/21/24 at 1125, For 24 hours NSS infusion 500 mL, Intravenous, at 50 mL/hr, CONTINUOUS, Starting on Sat03/20/24 at 1230, Until Sat03/20/24 at 2229 Start Infusion 03/20/2024 11:44 AM EDT 500 mL 50 mL/hr oxygen GAS Inhalation, OXYGEN, First dose on Sat03/20/24 at 1600, Until Discontinued, Device/Managed by: Low Flow Device, [...] Push, PRN Other, IV Flush, Starting on Sat03/20/24 at 1126, Until 03/21/24 at 1125, For 24 hours, Do not flush if lock, PICC, or central line not in place; IV infusing or unable to flush. Inactive Administered Medications - up to 3 most recent administrations Medication Order MAR Action Action Date Dose Rate Site Iron Sucrose (Venofer) 300 mg in NSS 250 mL ivpb 300 mg, IV Piggyback, ONCE, 1 dose, On Sat03/20/24 at 1300, Administer over 90 Minutes Start Infusion 03/20/2024 11:46 AM EDT 300 mg 180 mL/hr documented [...] Advance Directives occurred with: Patient Care Teams Credit Control Clerk Relationship Specialty Start Date End Date Praveena Banuelos CRNP 21 [place] [address] PCP - General Nurse Practitioner 05/01/23 documented as of this encounter
--- OUTSIDE RECORDS SUMMARY | 2024-04-08 08:59 | External Medical Summary | Summary of Care ---
Author Name Unknown Organization [facility] Address [address] [place] [address] Phone [phone] Care Team Providers Care Masking Machine Operator Name Role Phone Praveena Banuelos Primary Care Provider +1- [phone] Reason for Visit * Reason Onset Date Comments Scheduling 03/11/2024 Venofer Encounter Details Date Type Department Care Team (Late st Contact Info) Description 03/11/2024 Telephone Hematology/Oncology Treatment, [facility] [address] [facility] [place] [id number] Roe Galarza MD [address] [place] [address] [facility] Allergies No known active allergiesdocumented as of [...] L flank subcut device (working) Monitored by [employer] Last Assessment & Plan: Monitored by [employer] Nocturia 04/24/2021 Last Assessment & Plan: About [...] encounter Miscellaneous Notes * Telephone Encounter - Cassie Hollis RN - 03/11/2024 10:42 AM EDT Weld plan built for additional doses of Venofer. Routed to provider for signature. Please reach out to the patient to schedule: Venofer (4 doses over 3 weeks) - I did confirm this is what he wants [address] Galarza Labs (cbcd, iron, ferritin) need to be 1-2 days after last infusion. documented in this encounter Plan of Treatment Upcoming Encounters Date Type Department Care Team (Late st Contact Info) Description 03/13/2024 8:00 AM EDT Nurse Only Ancillary 1st Floor, [place] [facility] [address] [facility] Well[facility] 2 [facility] [address] 03/16/2024 8:00 AM EDT Hem/Onc Treatment Hematology/[address], [address] [address] [facility], Chair2 Hem Onc [address] [place], [place] [address]K[place] [address] 03/16/2024 10:40 AM EDT Office Visit [facility] 21 [facility] [phone] Praveena Banuelos CRNP 21 [facility] [address] 03/20/2024 11:30 AM EDT Hem/Onc Treatment Hematology/Oncology Treatment, [address] [address] [facility], Chair1 Hem Onc [address] [place], [place] [address]K[place] [address] 03/27/2024 8:30 AM EDT Hem/Onc Treatment Hematology/Oncology Treatment, [address], [place] [address] [facility], Chair2 Hem Onc [address] [place] [address], K[place] [address] 04/01/2024 8:00 AM EDT Hem/Onc Treatment Hematology/Oncology Treatment, [address], [place] [address] [facility], Chair2 Hem Onc [address] [place] [address], K[place] [address] 04/03/2024 8:00 AM EDT Laboratory Laboratory, [address], [place] [address] [facility], Lab [address] [place] [address], [place] [address] 04/07/2024 4:00 PM EDT Telemedicine Hematology Oncology, [place] [address] [address] [place] [address] Roe Galarza MD 400 [place] [address] 04/10/2024 10:20 AM EDT Office Visit [facility] 21 [facility] valade[facility] [address] Praveena Banuelos CRNP 21 [facility] [address] 04/10/2024 11:10 AM EDT Laboratory Laboratory, [address] [address] Lanre Ansari 21 [facility] [address] 05/08/2024 9:00 AM EDT Laboratory Laboratory, [facility] 400 [facility] [place]ATEKAR[place] Valadez [address] [facility], Lab 400 [facility] [place] [address] 06/18/2024 9:30 AM EDT Office Visit Gastroenterology, [facility] [place] [address] [place] [address] Marlene Bruno PA-C 310 [facility] [place] [address] Health Maintenance Due Date Last Done Comments COVID-19 Vaccine ( season) 2023 12/17/2020, 11/18/2020 Depression Screening 12/19/2024 [...] this encounter Medical Devices Implanted Type Area Resident Care Technician Device Identifier Shelf Expiration Date Model / Serial / Lot Corkscrew Bio Composite - [id number] Implanted:Qty: 2 on 04/29/2017 by Daquan Ang MD at OR [facility] Left: Shoulder [employer] 12/11/2018 AR-1927BC F / / [id number] [place] Pushlock 4.5x24mm - [id number] Implanted:Qty: 2 on 04/29/2017 by Daquan Ang MD at OR [facility] Left: Shoulder [employer] 12/11/2018 AR-1922BC / / [id number] Clik X Mri Ancor Implanted:Qty: 1 on 01/12/2019 by Saige Rivera MD at OR [facility] N/A: Back [employer] : PAIN MGMT 11/17/2020 SC-4319 / / [id number] Avista Mri 56 Cm 8 Contact Lead Kit Implanted:Qty: 1 on 01/12/2019 by Saige Rivera MD at OR [facility] N/A: Back [employer] : PAIN MGMT 10/30/2020 SC-2408-5 6 / [id number] / Avista Mri 56 Cm 8 Contact Lead Kit Implanted:Qty: 1 on 01/12/2019 by Saige Rivera MD at OR [facility] N/A: Back [employer] : PAIN MGMT 10/30/2020 SC-2408-5 6 / [id number] / Generator Implantable Pulse - [id number] Implanted:Qty: 1 on 01/12/2019 by Saige Rivera MD at OR [facility] N/A: Back [employer] : PAIN MGMT 10/16/2020 [id number] / / Duraclip 16mm Xlg Repostn - [id number] Implanted:Qty: 1 on 08/16/2023 by Ingrid Santiago MD at ENDOSCOPY [facility] [employer] [id number] 02/03/2025 DC023 5W / / [id number] Duraclip 16mm Xlg Repostn - [id number] Implanted:Qty: 1 on 08/16/2023 by Ingrid Santiago MD at ENDOSCOPY [facility] [employer] [id number] 04/15/2024 DC023 5W / / [id number] Catheter Hemostatic 235cm 2.8mm 11mm Cl[address] Latexfree - [id number] Implanted:Qty: 1 on 12/04/2023 by Donna Parker MD at OR [facility] [employer] : ENDOSCOPY [id number] 12/30/2025 [id number] / / [id number] Catheter Hemostatic 235cm 2.8mm 11mm [address] Latexfree - [id number] Implanted:Qty: 1 on 12/04/2023 by Donna Parker MD at OR [facility] [employer] : ENDOSCOPY [id number] 12/30/2025 [id number] / / [id number] Catheter Hemostatic 235cm 2.8mm 11mm [address] Latexfree - [id number] Implanted:Qty: 1 on 12/04/2023 by Donna Parker MD at OR [facility] [employer] : ENDOSCOPY [id number] 12/30/2025 [id number] / / [id number] documented as of this encounter Advance Directives [...] Advance Directives occurred with: Patient Care Teams Masking Machine Operator Relationship Specialty Start Date End Date Praveena Banuelos CRNP 21 [place] [address] [address] PCP - General Nurse Practitioner 05/01/23 documented as of this encounter
--- OUTSIDE RECORDS SUMMARY | 2024-04-08 08:59 | External Medical Summary | Summary of Care ---
Author Name Unknown Organization [facility] Address [address] [facility] [place] [address] Phone [phone] Care Team Providers Care Catalyst Supervisor Name Role Phone Praveena Banuelos Primary Care Provider +1- [phone] Reason for Visit * Reason Comments Follow Up * Evaluate & Treat - Unlimited Visits (Within 10 days (routine)) - Authorized Specialty Diagnoses / Procedures Referred By Collette t Referred To Contact Hematology/Oncology / Hematology Oncology Diagnoses Symptomatic anemia Sukhjinder Cazares MD [address] [place], [place] [address]ist [place] [address] Referral ID Status Reason Start Date Expiration Date Visits Requested Visits Authorized [id number] Authorized Specialty Services Required 08/17/2023 08/27/2024 [id number] Encounter Details Date Type Department Care Team (Late st Contact Info) Description 03/11/2024 10:00 AM EDT Telemedicine Hematology/Oncology, [address] [place] [address] Roe Galarza MD 400 [facility] [place] [phone] Cart, Telemed [facility] Hem Onc Clinic 400 [facility] [place], [place] [phone] Iron deficiency anemia due to chronic blood loss*; Micturition frequency Allergies No known active allergiesdocumented [...] L flank subcut device (working) Monitored by [employer] Last Assessment & Plan: Monitored by [employer] Nocturia 04/24/2021 Last Assessment & Plan: About [...] Sign Reading Time Taken Comments Blood Pressure 130/60 03/11/2024 10:01 AM EDT Pulse 86 03/11/2024 10:01 AM EDT Temperature 36.1 C (97 F) 03/11/2024 10:01 AM EDT Respiratory Rate - - Oxygen Saturation 96% 03/11/2024 10:01 AM EDT Inhaled Oxygen Concentration - - Weight 106.8 kg (235 lb 8 oz) 03/11/2024 10:01 A M EDT Height - - Body Mass Index 32.85 01/07/2024 8:36 AM EDT documented in this [...] this encounter Patient Instructions * Patient Instructions* Roe Galarza MD - 03/11/2024 10:38 AM EDT Venofer 300 mg x4 over the next 3 weeks Labs a few days after Hold oral iron once starting iv iron Return 04/06/24 home video visit with me/ If new blood in the stool, melena or feels much worse, short of breath, should go to ED Return 04/06/24 home video visit documented in this encounter Progress Notes * Roe Galarza MD - 03/11/2024 9:02 AM EDT Hematology/Oncology Outpatient Clinic Note [facility] HEMATOLOGY/ONCOLOGY - [facility] Patient location: CLINIC. I was not in a hospital or clinic location. After connecting through televideo, patient was verified with two unique identifiers. Patient (or authorized legal compliance representative) was then informed that this was a Telemedicine visit and being conducted confidentially over secure lines. My office door was closed. No one else was in the room with me. Patient acknowledged consent and understanding of privacy and security of the Telemedicine visit, and gave permission to have atelemedicine presenter stay in the room in order to assist with the history and to conduct the examas needed. I informed the patient that I have reviewed their record in [employer] and presented the opportunity for them to ask any questions regarding the visit today. The patient agreed to participate. Name: Naveen Stout Date: 03/11/24 CHIEF COMPLAINT: [...] Denies clots in the family Father - [place] - was in 60s SH: Started smoking [...] are ok. Gained 7 lb since around [place]. Can walk a block and then has [...] got better. Urinating a lot more often. Current Outpatient Medications Medication Sig Dispense Refill Acetaminophen 500 MG Oral Tablet (TYLENOL) TAKE TWO TABLETS BY MOUTH PRN Folic Acid 400 MCG Oral Tablet Take 1 Tablet by mouth in the morning. 90 Tablet 2 Polyethylene Glycol 3350 17 GM Oral Packet (MiraLax) Take 1 Packet by mouth daily as needed for Constipation. CPAP every night at bedtime. DULoxetine HCl 60 MG Oral Capsule Delayed Release Particles (Cymbalta) Take 2 Capsules by mouth in the morning. 60 Capsule 5 Iron 240 (27 Fe) MG Oral Tablet [...] by mouth at bedtime. 30 Tablet 5 No current facility-administered medications for this visit. REVIEW OF SYSTEMS: 12 point ROS performed and negative with exception of what is mentioned in the hpi. OBJECTIVE: Filed Vitals: 03/11/24 1001 BP: 130/60 Pulse: 86 Temp: 36.1 C (97 F) TempSrc: Tympanic SpO2: 96% Weight: 106.8 kg (235 lb 8 oz) Wt Readings from Last 5 Encounters: 03/11/24 106.8 kg (235 lb 8 oz) 01/08/24 105.4 kg (232 lb 6.4 oz) 01/07/24 105.8 kg (233 lb 4.8 oz) 12/24/23 106.7 kg (235 lb 4.8 oz) 12/23/23 106 kg (233 lb 9.6 oz) Is the pt having any pain related to today's visit?: No (03/11/24 1003) PHYSICAL EXAM: Gen: coop, alert Neck: Supple, no tracheal deviation HEENT: MMM, no lesions seen, NCAT Chest: Normal excursions, no obvious wheezing CV: No JVD Abd: Soft, NTND Spine: No deviations seen Ext: L>R 1+ edema Neuro: Grossly normal sensory and motor fcn MSK: Nl rom Skin: Clear, knee brace on R knee Psych: Normal mood and affect LABS: Results for orders placed or performed in visit on 03/06/24 COMPREHENSIVE METABOLIC PANEL Result Value Ref Range BUN 23 (H) 6 - 20 mg/dL Creatinine 1.1 0.6 - 1.2 mg/dL Estimated Glomerular Filtration Rate 69 >=60 mL/min Sodium 138 135 - 146 mmol/L Potassium 4.9 3.5 - 5.1 mmol/L Chloride 105 98 - 107 mmol/L CO2 23 22 - 32 mmol/L Anion Gap 10 7 - 15 mmol/L Glucose 156 (H) 70 - 120 mg/dL Albumin 4.0 3.8 - 5.0 g/dL AST 12 10 - 50 U/L Alkaline Phosphatase 89 35 - 130 U/L Bilirubin, Total 0.2 <=1.2 mg/dL Calcium 8.7 8.4 - 10.2 mg/dL Protein 6.6 6.0 - 8.3 g/dL ALT 12 10 - 50 U/L TYPE AND SCREEN Result Value Ref Range ABO A Rh Positive Red Blood Cell Antibody Screen Negative Specimen Expiration Date 03/09/2024 23:59 IRON SCREEN, INCLUDING TIBC Result Value Ref Range Iron 21 (L) 45 - 176 ug/dL Iron Binding Capacity 393 250 - 425 ug/dL Transferrin Saturation Percent 5 (L) 15 - 55 % FERRITIN Result Value Ref Range Ferritin 40 30 - 400 ng/mL CBC Result Value Ref Range WBC 3.60 (L) 4.00 - 10.80 K/uL RBC 3.36 4.50 - 5.25 M/uL HGB 9.7 (L) 14.0 - 16.8 g/dL HCT 31.6 (L) 40.0 - 48.4 % MCV 94.0 82.0 - 99.5 fL MCH 28.9 27.0 - 34.0 pg MCHC 30.7 32.0 - 36.0 g/dL RDW 15.4 11.5 - 15.5 % PLT 390 140 - 400 K/uL MPV 9.8 6.6 - 11.1 fL nRBCs 0 <=0 /100 WBCs DIFFERENTIAL, AUTOMATED Result Value Ref Range WBC 3.60 (L) 4.00 - 10.80 K/uL Neutrophils % 57.5 40.0 - 75.0 % Lymphocytes % 25.8 18.0 - 42.0 % Monocytes % 10.0 1.0 - 11.0 % Eosinophils % 5.0 0.0 - 6.0 % Basophils % 1.4 0.0 - 2.0 % Immature Granulocytes % 0.3 0.0 - 2.0 % Absolute Neutrophils 2.07 1.80 - 7.70 K/uL Absolute Lymphocytes 0.93 (L) 1.00 - 4.80 K/ul Absolute Monocytes 0.36 0.00 - 1.10 K/uL Absolute Eosinophils 0.18 0.00 - 0.70 K/uL Absolute Basophils 0.05 0.00 - 0.20 K/uL Absolute Immature Granulocytes 0.01 0.00 - 0.20 K/uL IMPRESSION/PLAN: 83-year-old male, [...] diverticulosis, moderate Last dose of IV iron 01/07 Recommend 4 additional doses of IV iron over 3 weeks, check cbc, iron studies, ferritin in 4 weeks Check cbc, iron studies, ferritin a few days after IV iron Hgb 10.1-->6.4-->9.5-->9.5-->9.7 As of 03/06 Tsat 5%-->10%-->7%-->5%-->6%-->5% Ferritin 19-->172-->20 (L)-->86-->40 VCE --> 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 Had 2nd push enteroscopy. 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 RTC 04/06/24, home video visit with me/[place] [address] ongoing serious and possibly life threatening GI bleeding documented in this encounter Nursing Notes * Louis Fernandes MED ASSIST - 03/11/2024 10:04 AM EDT Chief Complaint Patient presents with Follow Up Provider aware of VS. BP 130/60 | Pulse 86 | Temp 36.1 C (97 F) (Tympanic) | Wt 106.8 kg (235 lb 8 oz) | SpO2 96% | BMI 32.85 kg/m | BSA 2.31 m Patient was instructed to not get up on the exam table/exam chair until directed and assisted by their provider; patient is to remain seated in the chair/ wheelchair/ exam table/ exam chair for fall prevention and safety reasons. Patient is aware to have assistance to step down off exam table/exam chair with personnel. Patient voiced full comprehension of instructions. documented in this encounter Plan of Treatment Upcoming Encounters Date Type Department Care Team (Late st Contact Info) Description 03/13/2024 8:00 AM EDT Nurse Only Ancillary 1st Floor, [place] 21 [place] [address] [place], [facility] Wellness 2 21 [place] [address] 03/16/2024 8:00 AM EDT Hem/Onc Treatment Hematology/Oncology Treatment, [address] [place] [address] [facility], Chair2 Hem Onc [address] [place], [place] [address] [address] 03/16/2024 10:40 AM EDT Office Visit [facility], [place] 21 [place] [phone] Praveena Banuelos CRNP [facility] [address] 03/20/2024 11:30 AM EDT Hem/Onc Treatment Hematology/Oncology Treatment, [address] [place] [address] [facility], Chair1 Hem Onc [address] [place], [place] [address]K[place] fu[place] [address] 03/27/2024 8:30 AM EDT Hem/Onc Treatment Hematology/Oncology Treatment, [address] [address] [facility], Chair2 Hem Onc [address] [place], [place] [address]K[place] [address] 04/01/2024 8:00 AM EDT Hem/Onc Treatment Hematology/Oncology Treatment, [address] [address] [facility], Chair2 Hem Onc 400 [facility] [place] [address] 04/03/2024 8:00 AM EDT Laboratory Laboratory, [facility] 400 [facility] [place] [address] [facility], Lab 400 [facility] [address] 04/07/2024 4:00 PM EDT Telemedicine Hematology Oncology, [place] [address] [address] [place] [address] Roe Galarza MD 400 [facility] [address] 04/10/2024 10:20 AM EDT Office Visit [facility] [address] Praveena Banuelos CRNP [address] [facility] [address] 04/10/2024 11:10 AM EDT Laboratory Laboratory, [place] 21 [facility] [address] [place], [facility] 21 [facility] [address] 05/08/2024 9:00 AM EDT Laboratory Laboratory, [address] [place] [address] [facility], Lab 400 [facility] [place] [address] 06/18/2024 9:30 AM EDT Office Visit Gastroenterology, [facility] 310 [facility] [place] [phone] Marlene Bruno PA-C [facility] K[place] [address] Scheduled Orders Name Type Priority Associated Diagnoses Orde r Schedule CBC WITH WBC DIFFERENTIAL Lab Routine Iron deficiency anemia due to chronic blood loss Expected: 04/04/2024 (Approximate), Expires: 03/11/2025 IRON SCREEN, INCLUDING TIBC Lab Routine Iron deficiency anemia due to chronic blood loss Expected: 04/04/2024 (Approximate), Expires: 03/11/2025 FERRITIN Lab Routine Iron deficiency anemia due to chronic blood loss Expected: 04/04/2024 (Approximate), Expires: 03/11/2025 URINALYSIS, REFLEX TO CULTURE (NOT FOR NEUTROPENIC PATIENTS) Lab STAT Micturition frequency Expected: 03/11/2024, Expires: 03/11/2025 Health Maintenance Due Date Last Done Comments COVID-19 Vaccine ( - season) 2023 12/17/2020, 11/18/2020 Depression Screening 12/19/2024 [...] this encounter Medical Devices Implanted Type Area Maternal Child Nurse Device Identifier Shelf Expiration Date Model / Serial / Lot Love Bio Composite - [id number] Implanted:Qty: 2 on 04/29/2017 by Daquan Ang MD at OR [facility] Left: Shoulder [employer] 12/11/2018 AR-1927BC F / / [id number] [place] Pushlock 4.5x24mm - [id number] Implanted:Qty: 2 on 04/29/2017 by Daquan Ang MD at OR [facility] Left: Shoulder [employer] 12/11/2018 AR-1922BC / / [id number] Clik X Mri Ancor Implanted:Qty: 1 on 01/12/2019 by Saige Rivera MD at OR [facility] N/A: Back [employer] : PAIN MGMT 11/17/2020 SC-4319 / / [id number] Avista Mri 56 Cm 8 Contact Lead Kit Implanted:Qty: 1 on 01/12/2019 by Saige Rivera MD at OR [facility] N/A: Back [employer] : PAIN MGMT 10/30/2020 SC-2408-5 6 / [id number] / Avista Mri 56 Cm 8 Contact Lead Kit Implanted:Qty: 1 on 01/12/2019 by Saige Rivera MD at OR [facility] N/A: Back [employer] : PAIN MGMT 10/30/2020 SC-2408-5 6 / [id number] / Generator Implantable Pulse - [id number] Implanted:Qty: 1 on 01/12/2019 by Saige Rivera MD at OR [facility] N/A: Back [employer] : PAIN MGMT 10/16/2020 [id number] / / Duraclip 16mm Xlg Repostn - [id number] Implanted:Qty: 1 on 08/16/2023 by Ingrid Santiago MD at [facility] [id number] 02/03/2025 DC023 5W / / [id number] Duraclip 16mm Xlg Repostn - [id number] Implanted:Qty: 1 on 08/16/2023 by Ingrid Santiago MD at ENDOSCOPY [facility] [employer] [id number] 04/15/2024 DC023 5W / / [id number] Catheter Hemostatic 235cm 2.8mm [address]mm [address] Latexfree - [id number] Implanted:Qty: 1 on 12/04/2023 by Donna Parker MD at OR [facility] [employer] : ENDOSCOPY [id number] 12/30/2025 [id number] / / [id number] Catheter Hemostatic 235cm 2.8mm [address]mm [address] Latexfree - [id number] Implanted:Qty: 1 on 12/04/2023 by Donna Parker MD at OR [facility] [employer] : ENDOSCOPY [id number] 12/30/2025 [id number] / / [id number] Catheter Hemostatic 235cm 2.8mm [address]mm [address] Latexfree - [id number] Implanted:Qty: 1 on 12/04/2023 by Donna Parker MD at OR [facility] [employer] : ENDOSCOPY [id number] 12/30/2025 [id number] / / [id number] documented as of this encounter Visit Diagnoses Diagnosis Iron deficiency anemia due to chronic blood loss- Primary Iron deficiency anemia secondary to blood loss (chronic) Micturition frequency Urinary frequency documented in this [...] Advance Directives occurred with: Patient Care Teams Catalyst Supervisor Relationship Specialty Start Date End Date Praveena Banuelos CRNP 21 [place] [address] PCP - General Nurse Practitioner 05/01/23 documented as of this encounter"
--- OUTSIDE RECORDS SUMMARY | 2024-04-08 08:59 | External Medical Summary | Summary of Care ---
Author Name Unknown Organization [facility] Address [address] [facility] [place] [address] Phone [phone] Care Team Providers Care On Call Pharmacy Technician Name Role Phone Praveena Banuelos Primary Care Provider +1- [phone] Reason for Visit * Reason Comments Treatment Venofer * Evaluate & Treat - Unlimited Visits (Within 10 days (routine)) - Authorized Specialty Diagnoses / Procedures Referred By Collette t Referred To Contact Hematology/Oncology / Hematology Oncology Diagnoses Symptomatic anemia Sukhjinder Cazares MD [address] [place], [place] [address] [address] Referral ID Status Reason Start Date Expiration Date Visits Requested Visits Authorized [id number] Authorized Specialty Services Required 08/17/2023 08/27/2024 [id number] Encounter Details Date Type Department Care Team (Latest Contact Info) Description 03/16/2024 8:00 AM EDT Hem/Onc Treatment Hematology/Oncology Treatment, [address] [place] [address] [facility], Chair2 Hem Onc [address] [place] [address] [place] [address] Symptomatic anemia* Allergies No known active allergiesdocumented as of this encounter (statuses as of 03/18/2024) Medications Medication Sig Dispensed Refills Start Date [...] as of this encounter (statuses as of 03/18/2024) Active Problems Problem Noted Date Diagnosed Date Dizziness 12/23/2023 Gastrointestinal hemorrhage 10/01/2023 AVM (arteriovenous malformation) of duodenum, 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 Sacroiliitis 08/30/2023 Tachycardia 08/28/2023 Symptomatic anemia 08/13/2023 Orthostatic hypotension 08/13/2023 Hearing loss 10/16/2021 S/P insertion of spinal cord stimulator 08/28/20 21 Overview: 08/28/2021 L flank subcut device (working) Monitored by [employer] Last Assessment & Plan: Monitored by [employer] Nocturia 04/24/2021 Last Assessment & Plan: About [...] as of this encounter (statuses as of 03/18/2024) Resolved Problems Problem Noted Date Diagnosed Date [...] as of this encounter (statuses as of 03/18/2024) Immunizations Name Administration Dates Next Due COVID-19 [...] Arzate LPN - 03/16/2024 7:58 AM EDT Schuyler 4. Pt presents for Venofer (10/17). Had Venofer in past with no side effects. documented in this encounter Plan of Treatment Upcoming Encounters Date Type Department Care Team (Late st Contact Info) Description 03/20/2024 11:30 AM EDT Hem/Onc Treatment Hematology/Oncology Treatment, [place] [address] [place] [address] [facility], Chair1 Hem Onc [address] [place] [address] [place] [address] 03/27/2024 8:30 AM EDT Hem/Onc Treatment Hematology/Oncology Treatment, [address], [place] [address] [facility], Chair2 Hem Onc [address] [place] [address], [place] [address] 04/01/2024 8:00 AM EDT Hem/Onc Treatment Hematology/Oncology Treatment, [address], [place] [address] [facility], Chair2 Hem Onc [address] [place] [address], [place] [address] 04/03/2024 8:00 AM EDT Laboratory Laboratory, [address] [address] [facility], Lab [address] [place] [address], [place] [address] 04/07/2024 4:00 PM EDT Telemedicine Hematology Oncology, [place] [address] [address] [place] [address] Roe Galarza MD [address] [place] [address] [place] [address] 05/08/2024 9:00 AM EDT Laboratory Laboratory, [address], [place] [address] [facility], Lab [address] [place] [address], [place] [address] 06/18/2024 9:30 AM EDT Office Visit Gastroenterology, [facility] [phone] Marlene Bruno PA-C 310 [place] [address] 08/12/2024 12:20 PM EDT Office Visit [facility], [place] [address] [place] [phone] Praveena Banuelos CRNP [address] [place] [address] 03/19/2025 9:00 AM EDT Nurse Only Ancillary 1st Floor, [place] [address] [place] fuentes [phone] [place], Annual Wellness 2 [address] [place] [phone] Health Maintenance Due Date Last Done Comments [...] this encounter Medical Devices Implanted Type Area Car Hopper Device Identifier Shelf Expiration Date Model / Serial / Lot Love Bio Composite - [id number] Implanted:Qty: 2 on 04/29/2017 by Daquan Ang MD at OR [facility] Left: Shoulder [employer] 12/11/2018 AR-1927BC F / / [id number] [place] Pushlock 4.5x24mm - [id number] Implanted:Qty: 2 on 04/29/2017 by Daquan Ang MD at OR [facility] Left: Shoulder [employer] 12/11/2018 AR-1922BC / / [id number] Clik X Mri Ancor Implanted:Qty: 1 on 01/12/2019 by Saige Rivera MD at OR [facility] N/A: Back [employer] : PAIN MGMT 11/17/2020 [id number] / / [id number] Avista Mri 56 Cm 8 Contact Lead Kit Implanted:Qty: 1 on 01/12/2019 by Saige Rivera MD at OR [facility] N/A: Back [employer] : PAIN MGMT 10/30/2020 SC-2408-5 6 / [id number] / Avista Mri 56 Cm 8 Contact Lead Kit Implanted:Qty: 1 on 01/12/2019 by Saige Rivera MD at OR [facility] N/A: Back [employer] : PAIN MGMT 10/30/2020 SC-2408-5 6 / [id number] / Generator Implantable Pulse - [id number] Implanted:Qty: 1 on 01/12/2019 by Saige Rivera MD at OR [facility] N/A: Back [employer] : PAIN MGMT 10/16/2020 [id number] / / Duraclip 16mm Xlg Repostn - [id number] Implanted:Qty: 1 on 08/16/2023 by Ingrid Santiago MD at ENDOSCOPY [facility] [employer] [id number] 02/03/2025 DC023 5W / / [id number] Duraclip 16mm Xlg Repostn - [id number] Implanted:Qty: 1 on 08/16/2023 by Ingrid Santiago MD at ENDOSCOPY [facility] [employer] [id number] 04/15/2024 DC023 5W / / [id number] Catheter Hemostatic 235cm 2.8mm 11mm [address] Latexfree - [id number] Implanted:Qty: 1 on 12/04/2023 by Donna Parker MD at OR [facility] [employer] : ENDOSCOPY [id number] 12/30/2025 [id number] / / [id number] Catheter Hemostatic 235cm 2.8mm 11mm [address] Latexfree - [id number] Implanted:Qty: 1 on 12/04/2023 by Donna Parker MD at OR [facility] [employer] : ENDOSCOPY [id number] 12/30/2025 [id number] / / [id number] Catheter Hemostatic 235cm 2.8mm 11mm [address] Latexfree - [id number] Implanted:Qty: 1 on 12/04/2023 by Donna Parker MD at OR [facility] [employer] : ENDOSCOPY [id number] 12/30/2025 [id number] / / [id number] documented as of this encounter Visit Diagnoses [...] 8:08 AM EDT 300 mg 180 mL/hr NSS infusion 500 mL, Intravenous, at 50 mL/hr, CONTINUOUS, Starting on Sat03/16/24 at 0900, Until Sat03/16/24 at 1021 Start Infusion 03/16/2024 8:06 AM EDT 500 mL 50 mL/hr documented [...] Advance Directives occurred with: Patient Care Teams On Call Pharmacy Technician Relationship Specialty Start Date End Date Praveena Banuelos CRNP 21 [place] [address] PCP - General Nurse Practitioner 05/01/23 documented as of this encounter
--- OUTSIDE RECORDS SUMMARY | 2024-04-08 08:59 | External Medical Summary | Summary of Care ---
Author Name Unknown Organization [facility] Address [address] [facility] [place] [address] Phone [phone] Care Team Providers Care Service Desk Associate Name Role Phone Praveena Banuelos Primary Care Provider +1- [phone] Reason for Visit * Reason Comments Physical-Exam Pre-op. RT T[facility] . [facility] [place] [facility] [place] [facility] regarding [place] labs and anemia. He got his 1st of 4 iron infusions today at [facility]. With in clinic today. Encounter Details Date Type Department Care Team (Late st Contact Info) Description 03/16/2024 10:40 AM EDT Office Visit Coty Almaraz 21 [facility] [place] [address] Praveena Banuelos CRNP 21 [facility] [place] [phone] Preop examination*; Iron deficiency anemia, unspecified iron deficiency anemia type; HTN, goal below 150/90; FREDI (obstructive sleep apnea) Allergies No known active allergiesdocumented as of [...] L flank subcut device (working) Monitored by [employer] Last Assessment & Plan: Monitored by [employer] Nocturia 04/24/2021 Last Assessment & Plan: [...] Sign Reading Time Taken Comments Blood Pressure 140/68 03/16/2024 10:26 AM EDT Pulse 79 03/16/2024 10:26 AM EDT Temperature 36.9 C (98.4 F) 03/16/2024 1 0:26 AM EDT Respiratory Rate 18 03/16/2024 10:2 6 AM EDT Oxygen Saturation 97% 03/16/2024 10: 26 AM EDT Inhaled Oxygen Concentration - - Weight 106.1 kg (233 lb 12.8 oz) 2023 10:26 AM EDT Height - - Body Mass Index 32.61 01/07/2024 8:36 AM EDT documented in this [...] as of this encounter Progress Notes * Praveena Banuelos CRNP - 03/16/2024 10:33 AM EDT Images from the original note were not included. Pre-Operative Medical Evaluation Procedure Information Type of Surgery: right total knee Referring Physician / Surgeon: Dr. Burnette Date of procedure: 04/08/24 Brief History of Present Illness: He has a history of iron deficiency anemia with recent H&H 9.6 & 31.6. reports that they will proceed with surgery as long as hemoglobin is over 10. He received an iron infusion today and hastwo more scheduled before the planned surgery. He follows with heme/onc for his anemia and iron infusions. He is planning for a right knee replacement with Dr. Burnette. The knee is painful. Sometimes does give out when he is sitting down. Ambulating with a cane. Denies recent falls. Review of Systems Constitutional: Negative for chills, fatigue and fever. HENT: Negative for congestion, rhinorrhea and sore throat. Respiratory: Negative for cough, shortness of breath and wheezing. Cardiovascular: Negative for chest pain, palpitations and leg swelling. Gastrointestinal: Negative for constipation, diarrhea, nausea and vomiting. Genitourinary: Positive for frequency. Musculoskeletal: Positive for arthralgias. Neurological: Negative for dizziness and light-headedness. Psychiatric/Behavioral: Negative for sleep disturbance. Medical History Problem List: Dizziness (12/23/2023) Gastrointestinal hemorrhage (10/01/2023) AVM (arteriovenous malformation) of duodenum, acquired (09/30/2023) Sacroiliitis (HCC) (08/30/2023) Tachycardia (08/28/2023) Symptomatic anemia (08/13/2023) Orthostatic hypotension (08/13/2023) Hearing loss (10/16/2021) S/P insertion of spinal cord stimulator (08/28/2021) Nocturia (04/24/2021) Hip pain, right (03/08/2021) Takes iron supplements (12/16/2020) Chronic right-sided thoracic back pain (12/16/2020) Hand dermatitis (12/04/2020) Postlaminectomy syndrome, lumbar region (09/14/2019) RLS (restless legs syndrome) (06/19/2018) History of iron deficiency anemia (06/19/2018) Severe obesity with body mass index (BMI) of 35.0 to 39.9 with serious comorbidity (HCC) (11/25/2017) Shoulder impingement syndrome (04/05/2017) Chronic right shoulder pain (04/05/2017) Iron deficiency anemia (03/03/2016) Iron deficiency anemia due to chronic blood loss (03/03/2016) MEDICATION USE AGREEMENT (09/29/2015) FREDI (obstructive sleep apnea) (04/25/2015) Diverticulosis of sigmoid colon (05/18/2014) Hiatal hernia (05/10/2014) Malaise and fatigue (05/10/2014) HTN, goal below 150/90 (03/23/2014) Dyslipidemia, goal LDL below 70 (03/23/2014) GERD (gastroesophageal reflux disease) (03/23/2014) Hypertension Hypercholesteremia DDD (degenerative disc disease), cervical DDD (degenerative disc disease), lumbar Gastroesophageal reflux disease without esophagitis Unspecified deficiency anemia Pain in joint, lower leg Current Medications DULoxetine HCl 60 MG Oral Capsule Delayed Release Particles (Cymbalta), 120 mg, Oral, Daily(AM) rOPINIRole HCl 0.5 MG Oral Tablet (Requip), 0.5 mg, Oral, HS Atorvastatin Calcium 20 MG Oral Tablet (Lipitor), TAKE ONE TABLET BY MOUTH EVERY MORNING Omeprazole 40 MG Oral Capsule Delayed Release (PriLOSEC), 40 mg, Oral, Before breakfast Octreotide Acetate 10 MG Intramuscular Kit (SandoSTATIN [place]), 10 mg, Intramuscular, Q Month (Patient taking differently: 10 mg, Intramuscular, QMONTH, 12/23/23 getting first shot tomorrow 12/23) Famotidine 20 MG Oral Tablet (Pepcid), TAKE ONE TABLET BY MOUTH IN THE MORNING AND BEFORE BEDTIME. amLODIPine Besylate 5 MG Oral Tablet (Norvasc), 5 mg, Oral, Daily(AM) Finasteride 5 MG Oral Tablet (Proscar), 5 mg, Oral, Daily(AM) Iron 240 (27 Fe) MG Oral Tablet, Take by mouth. 2 tablets every other day Polyethylene Glycol 3350 17 GM Oral Packet (MiraLax), 17 g, Oral, Daily PRN Folic Acid 400 MCG Oral Tablet, 400 mcg, Oral, Daily(AM) Acetaminophen 500 MG Oral Tablet (TYLENOL), TAKE TWO TABLETS BY MOUTH PRN CPAP, every night at bedtime. No current facility-administered medications for this visit. Allergies: Patient has no known allergies. Past Medical History: has a past medical history of DDD (degenerative disc disease), cervical, DDD (degenerative disc disease), lumbar, Diverticulosis of sigmoid colon (05/18/2014), GERD (gastroesophageal reflux disease),Hypercholesteremia, Hypertension, Lumbago, Pain in joint, lower leg, and Unspecified deficiency anem ia. Past Surgical History: has a past surgical history that includes Miscellaneous Order ([facility] Only); Miscellaneous Order ([facility] Only) (Right, 1971); Miscellaneous Order ([facility] Only); Colonoscopy, Diagnostic (Rectum) (05/18/2014); carpal tunnel surgery; EGD, Flexible, Diagnostic (N/A, 02/16/2016); Colonoscopy, Diagnostic (Rectum) (N/A, 02/16/2016); information (Bilateral, 2017); information; shoulder arthroscopy surgery (Left, 04/29/2017); shoulder arthroscopy/decompression (Left, 04/29/2017); arthroscopy of joint (Left, 04/29/2017); repair ruptured rotator cuff, chron (Left, 04/29/2017); nervous system surgery nec (Left, 04/29/2017); implant epidural neuroelectrodes (N/A, 12/08/2018); Eval Neurostim Pulse Gen, w/ Reprogram (N/A, 12/08/2018); implant spinal neuroreceiver (N/A, 01/12/2019); implant epidural neuroelectrodes (N/A, 01/12/2019); Eval Neurostim Pulse Gen, w/ Reprogram (N/A, 01/12/2019); Colonoscopy, Diagnostic (Rectum) (N/A, 10/10/2020); EGD, Flexible, Diagnostic (N/A, 10/10/2020); Arthrocent ASP &/or Inj Major Jx/Bursa w/o US (Right, 05/05/2021); Colonoscopy, Diagnostic (Rectum) (N/A, 08/16/2023); EGD, Flexible, Diagnostic (N/A, 08/16/2023); Small Bowel Endoscopy Diagnostic (N/A, 10/01/2023); Colonoscopy, Diagnostic (Rectum) (09/19/2023); and EGD, Flexible, Diagnostic (N/A, 12/04/2023). Social History: reports that he quit smoking about 42 years ago. His smoking use included cigarettes and pipe. He quit smokeless tobacco use about 24 years ago. He reports current alcohol use of about 1.0 standard drink of alcohol per week. He reports that he does not use drugs. Family History: family history includes Arthritis in his father; No Past Hx in his father. Anesthesia History Type of Anesthesia: MAC-Monitored Anesthesia Care Anesthesia reaction: No History of surgical complications: none Personal history of venous thromboembolic disease: None Physical Exam Vitals: 03/16/24 1026 Temp: 36.9 C (98.4 F) Pulse: 79 Resp: 18 SpO2: 97% BP: 140/68 Physical Exam Vitals and nursing note reviewed. Constitutional: General: He is not in acute distress. Appearance: Normal appearance. He is obese. He is not ill-appearing. HENT: Head: Normocephalic and atraumatic. Cardiovascular: Rate and Rhythm: Normal rate and regular rhythm. Heart sounds: Normal heart sounds. No murmur heard. No friction rub. No gallop. Pulmonary: Effort: Pulmonary effort is normal. No respiratory distress. Breath sounds: Normal breath sounds. No wheezing, rhonchi or rales. Musculoskeletal: Right knee: Decreased range of motion. Skin: General: Skin is warm and dry. Neurological: Mental Status: He is alert and oriented to person, place, and time. Gait: Gait abnormal. Labs reviewed and are significant for: H&H 9.631.6 EKG by my review is significant for: 12/17/23 EGK NSR with RBBB, unchanged from previous Surgical Risk Scoring Revised Cardiac Risk Index (RCRI) High-risk type of surgery (examples include vascular and any open intraperitoneal or intrathoracic procedures): 0=No History of ischemic heart disease (history of myocardial infarction or positive exercise test, current compliant of chest pain considered to be secondary to myocardia ischemia, use of nitrate therapy, or ECG with pathological Q waves; do not count prior coronary revascularization procedure unless one of the other criteria for ischemic heart disease is present): 0=No History of heart failure: 0=No History of cerebrovascular disease: 0=No Diabetes mellitus requiring treatment with insulin: 0=No Preoperative serum creatinine >2.0 mg/dL (177 micromol/L): 0=No Pt has revised cardiac index score of: No Risk Factors- 0.4% (95% CI: 0.1-0.8) Screening for Obstructive Sleep Apnea (STOP-BANG) Do you Snore loudly? 1=Yes Do you often feel Tired, Fatigued, or Sleep? 1=Yes Has anyone Observed you Stop Breathing or Choking/Gasping during sleep? 0=No Do you have or are you being treated for High Blood Pressure? 1=Yes BMI over 35? 0=No Age older than 50? 1=Yes Neck size large? (For males - 17 inches or larger, For females - 16 inches or larger) 0=No Male? 1=Yes Score 0-2:low risk FREDI, 3-4: intermediate risk of FREDI, 5-8: high risk FREDI 5 - known FREDI, does not wear CPAP. Assessment and Plan Preop examination Per RCRI patient is low risk for proposed procedure. Iron deficiency anemia, unspecified iron deficiency anemia type Complicating factor. Complete iron infusions with repeat CBC to ensure H&H improved adequately. HTN, goal below 150/90 At goal. Continue current medications. FREDI (obstructive sleep apnea) Encouraged CPAP use and discussed risks of not treating this condition. Functional Assessment They are able to walk up a flight of stairs. The patient's functional status is good (greater than 4 METS). 1 MET: 4 METs: 4-10 METs: Can take care of self, such as eat, dress or use the toilet. Can walk to block or go up a flight of steps. Can do heavy house work. Surgical Risk Assessment Patient is low medical risk for the listed procedure. Medication adjustments: None Additional consults or testing: Repeat CBC prior to surgery to ensure improvement in H&H after iron infusions. documented in this encounter Nursing Notes * Glory Singh CMA - 03/16/2024 10:23 AM EDT Chief Complaint Patient presents with Physical-Exam Pre-op. RT TKR on 04/08[facility]. [facility] [facility] [facility] regarding [place] labs and anemia. He got his 1st of 4 iron infusions today at [facility]. With in clinic today. documented in this encounter Plan of Treatment Upcoming Encounters Date Type Department Care Team (Late st Contact Info) Description 03/20/2024 11:30 AM EDT Hem/Onc Treatment Hematology/On[address], [address] [address] [facility], Chair1 Hem Onc [address] [place], [place] [address] [address] 03/27/2024 8:30 AM EDT Hem/Onc Treatment Hematology/Oncology Treatment, [address] [place] [address] [facility], Chair2 Hem Onc [address] [place], [place] [address]K[place] [address] 04/01/2024 8:00 AM EDT Hem/Onc Treatment Hematology/Oncology Treatment, [address], [place] [address] [facility], Chair2 Hem Onc [address] [place] [address], [place] [address] 04/03/2024 8:00 AM EDT Laboratory Laboratory, [address], [place] [address] [facility], Lab 400 [place] [address] 04/07/2024 4:00 PM EDT Telemedicine Hematology Oncology, [place] [address] [address] [place] [address] Roe Galarza MD [address] [place] [address] 05/08/2024 9:00 AM EDT Laboratory Laboratory, [address], [place] [address] [facility], Lab [address] [place] [address] 06/18/2024 9:30 AM EDT Office Visit Gastroenterology, [facility] [phone] Marlene Bruno PA-C 310 [place] [address] 08/12/2024 12:20 PM EDT Office [facility] [phone] Praveena Banuelos CR[facility] [address] 03/19/2025 9:00 AM EDT Nurse Only Ancillary 1st Floor, [place] [address] [place] [address] [place], Annual Wellness 2 21 [place] [address] Health Maintenance Due Date Last Done Comments COVID-19 Vaccine ( season) 2023 12/17/2020, 11/18/2020 GFR 03/06/2025 03/06/2024, 04/2024, 12/17/2023, Additional history exists Depression Screening 03/13/2025 [...] this encounter Medical Devices Implanted Type Area Tong Setter Device Identifier Shelf Expiration Date Model / Serial / Lot Corkscrew Bio Composite - [id number] Implanted:Qty: 2 on 04/29/2017 by Daquan Agn MD at OR [facility] Left: Shoulder [employer] 12/11/2018 AR-1927BC F / / [id number] [place] Pushlock 4.5x24mm - [id number] Implanted:Qty: 2 on 04/29/2017 by Daquan Ang MD at OR [facility] Left: Shoulder [employer] 12/11/2018 AR-1922BC / / [id number] Clik X Mri Ancor Implanted:Qty: 1 on 01/12/2019 by Saige Rivera MD at OR [facility] N/A: Back [employer] : PAIN MGMT 11/17/2020 UT-4319 / / [id number] Avista Mri 56 Cm 8 Contact Lead Kit Implanted:Qty: 1 on 01/12/2019 by Saige Rivera MD at OR [facility] N/A: Back [employer] : PAIN MGMT 10/30/2020 UT-2408-5 6 / [id number] / Avista Mri 56 Cm 8 Contact Lead Kit Implanted:Qty: 1 on 01/12/2019 by Saige Rivera MD at OR [facility] N/A: Back [employer] : PAIN MGMT 10/30/2020 UT-2408-5 6 / [id number] / Generator Implantable Pulse - [id number] Implanted:Qty: 1 on 01/12/2019 by Saige Rivera MD at OR [facility] N/A: Back [employer] : PAIN MGMT 10/16/2020 [id number] / / Duraclip 16mm Xlg Repostn - [id number] Implanted:Qty: 1 on 08/16/2023 by Ingrid Santiago MD at ENDOSCOPY [facility] [employer] [id number] 02/03/2025 DC023 5W / / [id number] Duraclip 16mm Xlg Repostn - [id number] Implanted:Qty: 1 on 08/16/2023 by Ingrid Santiago MD at ENDOSCOPY [facility] [employer] [id number] 04/15/2024 DC023 5W / / [id number] Catheter Hemostatic 235cm 2.8mm 11mm [address] Latexfree - [id number] Implanted:Qty: 1 on 12/04/2023 by Donna Parker MD at OR [facility] [employer] : ENDOSCOPY [id number] 12/30/2025 [id number] / / [id number] Catheter Hemostatic 235cm 2.8mm 11mm [address] Latexfree - [id number] Implanted:Qty: 1 on 12/04/2023 by Donna Parker MD at OR [facility] [employer] : ENDOSCOPY [id number] 12/30/2025 [id number] / / [id number] Catheter Hemostatic 235cm 2.8mm 11mm [address] [place]ia - [id number] Implanted:Qty: 1 on 12/04/2023 by Donna Parker MD at OR [facility] [employer] : ENDOSCOPY [id number] 12/30/2025 [id number] / / [id number] documented as of this encounter Visit Diagnoses Diagnosis Preop examination- Primary Preoperative examination, unspecified Iron deficiency anemia, unspecified iron deficiency anemia type HTN, goal below 150/90 FREDI (obstructive sleep apnea) Obstructive sleep apnea (adult) (pediatric) documented in this encounter Advance Directives * [...] Advance Directives occurred with: Patient Care Teams Service Desk Associate Relationship Specialty Start Date End Date Praveena Banuelos CRNP 21 [place] [phone] PCP - General Nurse Practitioner 05/01/23 documented as of this encounter
--- OUTSIDE RECORDS SUMMARY | 2024-04-08 08:59 | External Medical Summary | Summary of Care ---
Author Name Unknown Organization [facility] Address [address] [place] [address] Phone [phone] Care Team Providers Care Family Intervention Specialist Name Role Phone Praveena Banuelos Primary Care Provider [phone]- [phone] Reason for Visit * Reason Onset Date Comments Scheduling 03/11/2024 Venofer Encounter Details Date Type Department Care Team (Late st Contact Info) Description 03/11/2024 Telephone Hematology/[facility], [facility] [address] [facility] [place] [phone] Roe Galarza MD [address] [place] [address] [facility] Allergies No known active allergiesdocumented as of [...] L flank subcut device (working) Monitored by [employer] Last Assessment & Plan: Monitored by [employer] Nocturia 04/24/2021 Last Assessment & Plan: About [...] encounter Miscellaneous Notes * Telephone Encounter - HalfMelody sierra OSA - 03/11/2024 11:05 AM EDT Scheduled these at check out today... Pt aware of each appt. Scheduled for 2 next week and then a weekly dose for the following 2 wks, labs and we had to do a telephone call from Michell because of the timing and schedules.... Michell approved via TT. * Telephone Encounter - Cassie Hollis RN - 03/11/2024 10:42 AM EDT Watchung plan built for additional doses of Venofer. [...] AM EDT Nurse Only Ancillary 1st Floor, [place] [address] [address] [place], [facility] Wellness 2 [address] [facility] [place] [address] 03/16/2024 8:00 AM EDT Hem/Onc Treatment Hematology/Oncology Treatment, [address] [place] [address] [facility], Chair2 Hem Onc [address] [place], [place] [address] [address] 03/16/2024 10:40 AM EDT Office Visit [facility] [address] [phone] Prave[facility]os [facility] [address] 03/20/2024 11:30 AM EDT Hem/Onc Treatment Hematology/Oncology Treatment, [address], [place] [address] [facility], Chair1 Hem Onc [address] [place] [address] 03/27/2024 8:30 AM EDT Hem/Onc Treatment Hematology/Oncology Treatment, [address], [place] [address] [facility], Chair2 Hem Onc [address] [place] [address] [place] [address] 04/01/2024 8:00 AM EDT Hem/Onc Treatment Hematology/Oncology Treatment, [address], [place] [address] [facility], Chair2 Hem Onc [address] [place] [address], [place] [address] 04/03/2024 8:00 AM EDT Laboratory Laboratory, [address] [phone] [facility], Lab [address] [place] [address] 04/07/2024 4:00 PM EDT Telemedicine Hematology Oncology, [place] [address] [address] [place] [address] Roe Galarza MD [address] [place] [phone] 04/10/2024 10:20 AM EDT Office Visit [address] [place] [phone] Praveena Banuelos CRNP 21 [facility] [place] [address] 05/08/2024 9:00 AM EDT Laboratory Laboratory, [facility] [phone] [facility], Lab [address] [place] [address] 06/18/2024 9:30 AM EDT Office Visit Gastroenterology, [facility] [address] [place] [phone] Marlene Bruno PA-C [address] [facility] [address] Health Maintenance Due Date Last Done Comments COVID-19 Vaccine (2022- season) 2023 12/17/2020, 11/18/2020 Depression Screening 12/19/2024 12/20/2023 GFR 03/06/2025 03/06/2024, 0304/2024, 12/17/2023, Additional history exists Albumin/Creatinine Ratio 05/20/2026 [...] this encounter Medical Devices Implanted Type Area Sql Server Architect Device Identifier Shelf Expiration Date Model / Serial / Lot Love Bio Composite - [id number] Implanted:Qty: 2 on 04/29/2017 by Daquan Ang MD at OR [facility] Left: Shoulder [employer] 12/11/2018 AR-1927BC F / / [id number] T[place]in Pushlock 4.5x24mm - [id number] Implanted:Qty: 2 on 04/29/2017 by Daquan Ang MD at OR [facility] Left: Shoulder [employer] 12/11/2018 AR-1922BC / / [id number] Clik X Mri Ancor Implanted:Qty: 1 on 01/12/2019 by Saige Rivera MD at OR [facility] N/A: Back [employer] : PAIN MGMT 11/17/2020 SC-4319 / / [id number] Avista Mri 56 Cm 8 Contact Lead Kit Implanted:Qty: 1 on 01/12/2019 by Saige Rivera MD at OR [facility] N/A: Back [employer] : PAIN MGMT 10/30/2020 SC-2408-5 6 / [id number] / Avista Mri 56 Cm 8 Contact Lead Kit Implanted:Qty: 1 on 01/12/2019 by Saige Rivera MD at OR [facility] N/A: Back [employer] : PAIN MGMT 10/30/2020 SC-2408-5 6 / [id number] / Generator Implantable Pulse - [id number] Implanted:Qty: 1 on 01/12/2019 by Saige Rivera MD at OR [facility] N/A: Back [employer] : PAIN MGMT 10/16/2020 [id number] / / Duraclip 16mm Xlg Repostn - [id number] Implanted:Qty: 1 on 08/16/2023 by Ingrid Santiago MD at [facility] [id number] 02/03/2025 DC023 5W / / [id number] Duraclip 16mm Xlg Repostn - [id number] Implanted:Qty: 1 on 08/16/2023 by Ingrid Santiago MD at ENDOSCOPY [facility] [id number] 04/15/2024 DC023 5W / / [id number] Catheter Hemostatic 235cm 2.8mm 11mm [address] Latexfree - [id number] Implanted:Qty: 1 on 12/04/2023 by Donna Parker MD at OR [facility] [employer] : ENDOSCOPY [id number] 12/30/2025 [id number] / / [id number] Catheter Hemostatic 235cm 2.8mm 11mm [address] Latexfree - [id number] Implanted:Qty: 1 on 12/04/2023 by Donna Parker MD at OR [facility] [employer] : ENDOSCOPY [id number] 12/30/2025 [id number] / / [id number] Catheter Hemostatic 235cm 2.8mm 11mm [address] Latexfree - [id number] Implanted:Qty: 1 on 12/04/2023 by Donna Parker MD at OR [facility] [employer] : ENDOSCOPY [id number] 12/30/2025 [id number] / / [id number] documented as of this encounter Advance Directives [...] Advance Directives occurred with: Patient Care Teams Family Intervention Specialist Relationship Specialty Start Date End Date Praveena Banuelos CRNP [address] [place] [address] PCP - General Nurse Practitioner 05/01/23 documented as of this encounter
--- OUTSIDE RECORDS SUMMARY | 2024-04-08 09:00 | External Medical Summary ---
Author Name Unknown Address Unknown Organization K1F:LABORATORY [facility] - [facility] [address] [place] [address] Laboratory Report Ordering Provider Test Date Status BELIA DELGADO 03/06/2024 09:41:16 Final Observation Date Value Abnormality Reference (Units ) Status WBC, Total 03/06/2024 09:41:16 3.60 Below low normal 4.00-10.80 (K/uL) Final RBC 03/06/2024 09:41:16 3.36 4.50-5.25 (M/uL) Final Hemoglobin 03/06/2024 09:41:16 9.7 Below low normal 14.0-16.8 (g/dL) Final HCT 03/06/2024 09:41:16 31.6 Below low normal 40.0-48.4 (%) Final MCV 03/06/2024 09:41:16 94.0 82.0-99.5 (fL) Final MCH 03/06/2024 09:41:16 28.9 27.0-34.0 (pg) Final MCHC 03/06/2024 09:41:16 30.7 32.0-36.0 (g/dL) Final RDW 03/06/2024 09:41:16 15.4 11.5-15.5 (%) Final Platelets 03/06/2024 09:41:16 390 140-400 (K/uL) Final MPV 03/06/2024 09:41:16 9.8 6.6-11.1 (fL) Final Nucleated erythrocytes/100 leukocytes [Ratio] in Blood by Automated count 03/06/2024 09:41:16 0 <=0 (/100 WBCs) Final Performing Location LAB[facility]ATORY [facility] - [address] [place] [address]
--- OUTSIDE RECORDS SUMMARY | 2024-04-08 09:00 | External Medical Summary | Summary of Care ---
Author Name Unknown Organization [facility] Address [address] [place] [address] Phone [phone] Care Team Providers Care Server Software Engineer Name Role Phone Praveena Banuelos Primary Care Provider +1- [phone] Reason for Visit * Reason Onset Date Comments Patient Assistance Program 12/10/2023 Encounter Details Date Type Department Care Team (Late st Contact Info) Description 12/10/2023 Telephone Gastroenterology, [facility] Lillie [place] [address] [place], [place] [address] [place] [phone] Marlene Bruno PA-C [address] [place] [address] [place] [address] Patient Assistance Program Allergies No known active allergiesdocumented as of this encounter (statuses as of 03/10/2024) Medications Medication Sig Dispensed Refills Start Date [...] first shot tomorrow 12/23, Reported on 12/23/2023 documented as of this encounter (statuses as of 03/10/2024) Active Problems Problem Noted Date Diagnosed Date Dizziness 12/23/2023 Gastrointestinal hemorrhage 10/01/2023 AVM (arteriovenous malformation) of duodenum, 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 Sacroiliitis 08/30/2023 Tachycardia 08/28/2023 Symptomatic anemia 08/13/2023 Orthostatic hypotension 08/13/2023 Hearing loss 10/16/2021 S/P insertion of spinal cord stimulator 08/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 To view the Medication Usage Agreement, go to Action, Patient Files. Diverticulosis of sigmoid colon 05/18/2014 11/26/2018 Malaise and fatigue 05/10/2014 07/22/20 17 GERD (gastroesophageal reflux disease) 03/23/2014 07/22/2017 Hypertension 09/29/2015 Hypercholesteremia 7 Unspecified deficiency anemia 07/22/2017 Pain in joint, lower leg 06/2017 documented as of this encounter (statuses as of 03/10/2024) Immunizations Name Administration Dates Next Due COVID-19 [...] encounter Miscellaneous Notes * Telephone Encounter - Keely Yuen, [facility] - 12/10/2023 10:[address] [facility] Patient Assistance Request: Medication name: sandostatin [place] Insurance? medicare d Co-pay amount: 100 Action needed: new funding inquiry Target ship date (if applicable): IF HEM/ONC: Confirm this encounter is routed to [id number]: All other department requests should be flagged in referral. Confirm encounter department selected is for prescribing physician: If URGENT: Send TEAMS message to appropriate winding department supervisor (see "Patient Assistance Guide" - ROUTING POOLS:P on shared drive): [] Urgent message sent to: Thank you, Keely Yuen CPhT [facility] 12/10/2023,10:52 AM documented in this encounter Plan of Treatment Upcoming Encounters Date Type Department Care Team (Late st Contact Info) Description 03/11/2024 10:00 AM EDT Telemedicine Hematology/Oncology, [facility] [address] Roe Galarza MD 400 [facility] [place] [phone] Cart, Telemed [facility] Hem Onc Clinic [address] [facility] [place] [address] 03/13/2024 8:00 AM EDT Nurse Only Ancillary 1st Floor, [place] [facility] [address] [place], [facility] Wellness 2 21 [facility] [place] [address] 03/16/2024 10:40 AM EDT [address] [phone] Praveena Banuelos CRNP [facility] [address] 04/10/2024 10:20 AM EDT Office Visit [facility] [address] [place] [address] Praveena Banuelos CRNP [facility] [place] [address] 04/10/2024 11:10 AM EDT Laboratory Laboratory, [address] [place] [phone] [place], [facility] 21 [facility] [address] 05/08/2024 9:00 AM EDT Laboratory Laboratory, [facility] [address] [facility] [place] [phone] [facility], Lab [address] [facility] [address] 06/18/2024 9:30 AM EDT Office Visit Gastroenterology, [facility] [address] [place] [phone] Marlene Bruno PA-C [address] [facility] [place] [address] Health Maintenance Due Date Last Done Comments [...] this encounter Medical Devices Implanted Type Area Track Welder Device Identifier Shelf Expiration Date Model / Serial / Lot Love Bio Composite - [id number] Implanted:Qty: 2 on 04/29/2017 by Daquan Ang MD at OR [facility] Left: Shoulder [employer] 12/11/2018 AR-1927BC F / / [id number] [place] Pushlock 4.5x24mm - [id number] Implanted:Qty: 2 on 04/29/2017 by Daquan Ang MD at OR [facility] Left: Shoulder [employer] 12/11/2018 AR-1922BC / / [id number] Clik X Mri Ancor Implanted:Qty: 1 on 01/12/2019 by Saige Rivera MD at OR [facility] N/A: Back [employer] : PAIN MGMT 11/17/2020 SC-4319 / / [id number] Avista Mri 56 Cm 8 Contact Lead Kit Implanted:Qty: 1 on 01/12/2019 by Saige Rivera MD at OR [facility] N/A: Back [employer] : PAIN MGMT 10/30/2020 SC-2408-5 6 / [id number] / [employer]ista Mri 56 Cm 8 Contact Lead Kit Implanted:Qty: 1 on 01/12/2019 by Saige Rivera MD at OR [facility] N/A: Back [employer] : PAIN MGMT 10/30/2020 SC-2408-5 6 / [id number] / Generator Implantable Pulse - [id number] Implanted:Qty: 1 on 01/12/2019 by Saige Rivera MD at OR [facility] N/A: Back [employer] : PAIN MGMT 10/16/2020 [id number] / / Duraclip 16mm Xlg Repostn - [id number] Implanted:Qty: 1 on 08/16/2023 by Ingrid Santiago MD at [facility] [id number] 02/03/2025 DC023 5W / / [id number] Duraclip 16mm Xlg Repostn - [id number] Implanted:Qty: 1 on 08/16/2023 by Ingrid Santiago MD at ENDOSCOPY [facility] [employer] [id number] 04/15/2024 DC023 5W / / [id number] Catheter Hemostatic 235cm 2.8mm [address]mm [address] Latexfree - [id number] Implanted:Qty: 1 on 12/04/2023 by Donna Parker MD at OR [facility] [employer] : ENDOSCOPY [id number] 12/30/2025 [id number] / / [id number] Catheter Hemostatic 235cm 2.8mm [address]mm [address] Latexfree - [id number] Implanted:Qty: 1 on 12/04/2023 by Donna Parker MD at OR [facility] [employer] : ENDOSCOPY [id number] 12/30/2025 [id number] / / [id number] Catheter Hemostatic 235cm 2.8mm 11mm [address] Latexfree - [id number] Implanted:Qty: 1 on 12/04/2023 by Donna Parker MD at OR [facility] [employer] : ENDOSCOPY [id number] 12/30/2025 [id number] / / [id number] documented as of this encounter Advance Directives [...] Advance Directives occurred with: Patient Care Teams Server Software Engineer Relationship Specialty Start Date End Date Praveena Banuelos CRNP [address] [place] [address] PCP - General Nurse Practitioner 05/01/23 documented as of this encounter
--- OUTSIDE RECORDS SUMMARY | 2024-04-08 09:00 | External Medical Summary ---
Author Name Unknown Address Unknown Organization K1F:LABORATORY [facility] - [facility] [address] [place] [address] Laboratory Report Ordering Provider Test Date Status MIKE LOPEZ 03/06/2024 09:41:16 Final Observation Date Value Abnormality Reference (Units ) Status ABO 03/06/2024 09:41:16 A Final RH 03/06/2024 09:41:16 Positive Final RED BLOOD CELL ANTIBODY SCREEN 03/06/2024 09:41:16 Negative Final SPECIMEN EXPIRATION DATE 03/06/2024 09:41:16 03/09/2024 23:59 Final Performing Location LABORATORY [facility] BLOOD BANK - [address] [place] [address]
--- OUTSIDE RECORDS SUMMARY | 2024-04-08 09:00 | External Medical Summary ---
Author Name Unknown Address Unknown Organization K1F:LABORATORY [facility] - [address] [facility]. [place] [address] Laboratory Report Ordering Provider Test Date Status BELIA DELGADO 03/06/2024 09:41:16 Final Observation Date Value Abnormality Reference (Units ) Status BUN 03/06/2024 09:41:16 23 Above high normal 6-20 (mg/dL) Final Creatinine 03/06/2024 09:41:16 1.1 0.6-1.2 (mg/dL) Final Glomerular filtration rate/1.73 sq M.predicted [Volume Rate/Area] in Serum, Plasma or Blood by Creatinine-based formula (CKD-EPI) 03/06/2024 09:41:16 69 >=60 (mL/min) Final eGFR is calculated based on the CKD-EPI 2020 equation Sodium 03/06/2024 09:41:16 138 135-146 (m mol/L) Final Potassium 03/06/2024 09:41:16 4.9 3.5-5.1 (m mol/L) Final Cl 03/06/2024 09:41:16 105 98-107 (mm ol/L) Final CO2 03/06/2024 09:41:16 23 22-32 (mmo l/L) Final Anion gap 03/06/2024 09:41:16 10 7-15 (mmol /L) Final Glucose 03/06/2024 09:41:16 156 Above high normal 70 -120 (mg/dL) Final Albumin 03/06/2024 09:41:16 4.0 3.8-5.0 (g /dL) Final AST (Aspartate aminotransferase) 03/06/2024 09:41:16 12 10-50 (U/L) Fin al Alk Phos 03/06/2024 09:41:16 89 35-130 (U/ L) Final Bilirubin, Total 03/06/2024 09:41:16 0.2 <=1 .2 (mg/dL) Final Calcium 03/06/2024 09:41:16 8.7 8.4-10.2 ( mg/dL) Final Protein 03/06/2024 09:41:16 6.6 6.0-8.3 (g /dL) Final ALT (Alanine aminotransferase) 03/06/2024 09:41:16 12 10-50 (U/L) Liam nicholas Performing Location LABORATORY [facility] - [facility] [place] [address]
--- OUTSIDE RECORDS SUMMARY | 2024-04-08 09:00 | External Medical Summary ---
Author Name Unknown Address Unknown Organization K1F:LABORATORY [facility] - [address] [facility] [place] [address] Laboratory Report Ordering Provider Test Date Status BELIA DELGADO 03/11/2024 11:35:01 Final Observation Date Value Abnormality Reference (Units ) Status Color of Urine by Auto 03/11/2024 11:35:01 Yellow Light Yellow, Yellow, Dark Yellow Final Clarity, Urine 03/11/2024 11:35:01 Clear Clear Final Glucose [Mass/volume] in Urine by Automated test strip 03/11/2024 11:35:01 Negative Negative (mg/dL) Final Bilirubin.total [Presence] in Urine by Automated test strip 03/11/2024 11:35:01 Negative Negative Final Ketones [Mass/volume] in Urine by Automated test strip 03/11/2024 11:35:01 Negative Negative (mg/dL) Final Specific gravity, Urine 03/11/2024 11:35:01 1.015 1.003-1.030 Final Hemoglobin [Presence] in Urine by Automated test strip 03/11/2024 11:35:01 Negative Negative Final pH, Urine 03/11/2024 11:35:01 6.0 5.0-7.5 (Units) Final Protein [Mass/volume] in Urine by Automated test strip 03/11/2024 11:35:01 Negative Negative (mg/dL) Final Urobilinogen [Mass/volume] in Urine by Automated test strip 03/11/2024 11:35:01 0.2 0.2, 1.0 (mg/dL) Final Nitrite [Presence] in Urine by Automated test strip 03/11/2024 11:35:01 Negative Negative Final Leukocyte esterase [Presence] in Urine by Automated test strip 03/11/2024 11:35:01 Negative Negative Final RBC, Urine 03/11/2024 11:35:01 0-2 0-2 (/HPF) Final WBC, Urine 03/11/2024 11:35:01 0-2 0-2 (/HPF) Final Bacteria [#/area] in Urine sediment by Microscopy high power field 03/11/2024 11:35:01 101-150 Abnormal 0-25 (/HPF) Final CULTURE, URINE - [facility] 03/11/2024 11:35:01 Final Quantitative urine culture t o be performed Performing Location LABORATORY [facility] - [facility] [place] [address]
--- OUTSIDE RECORDS SUMMARY | 2024-04-08 09:00 | External Medical Summary ---
Author Name Unknown Address Unknown Organization K01:LABORATORY [facility] - [address] [facility] [place] [address] Laboratory Report Ordering Provider Test Date Status BELIA DELGADO 03/06/2024 09:41:16 Final Observation Date Value Abnormality Reference (Units ) Status Ferritin 03/06/2024 09:41:16 40 30-400 (ng /mL) Final Performing Location LABORATORY [facility] - [address] [place] [address]
--- OUTSIDE RECORDS SUMMARY | 2024-04-08 09:00 | External Medical Summary | Summary of Care ---
Author Name Unknown Organization [facility] Address [address] [place] [address] Phone [phone] Care Team Providers Care Solid Waste Truck Driver Name Role Phone Praveena Banuelos Primary Care Provider [phone]- [phone] Reason for Visit * Reason Comments Outpatient Testing Encounter Details Date Type Department Care Team (Late st Contact Info) Description 03/06/2024 9:30 AM EDT Laboratory Laboratory, [facility] [address] [place] [phone] [facility], Lab [address] [place], [place] [id number] Symptomatic anemia; Iron deficiency anemia due to chronic blood loss; Secondary thrombocytosis Allergies No known active allergiesdocumented as of this encounter (statuses as of 03/06/2024) Medications Medication Sig Dispensed Refills Start Date [...] as of this encounter (statuses as of 03/06/2024) Active Problems Problem Noted Date Diagnosed Date Dizziness 12/23/2023 Gastrointestinal hemorrhage 10/01/2023 AVM (arteriovenous malformation) of duodenum, 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 Sacroiliitis 08/30/2023 Tachycardia 08/28/2023 Symptomatic anemia 08/13/2023 Orthostatic hypotension 08/13/2023 Hearing loss 10/16/2021 S/P insertion of spinal cord stimulator 08/28/20 21 Overview: 08/28/2021 L flank subcut device (working) Monitored by [employer] Last Assessment & Plan: Monitored by [employer] Nocturia 04/24/2021 Last Assessment & Plan: About [...] as of this encounter (statuses as of 03/06/2024) Resolved Problems Problem Noted Date Diagnosed Date [...] as of this encounter (statuses as of 03/06/2024) Immunizations Name Administration Dates Next Due COVID-19 [...] Description 03/11/2024 10:00 AM EDT Telemedicine Hematology/Oncology, [facility] [address] [facility] [place] [address] Roe Galarza MD [address] [facility] [phone] Cart, Telemed [facility] [address] [facility] [address] 03/13/2024 8:00 AM EDT Nurse Only Ancillary 1st Floor, [place] [facility] [address] [place], [facility] [address] 03/16/2024 10:40 AM EDT Office Visit [facility] [place] [facility] [phone] Praveena Banuelos CRNP [facility] [address] 04/10/2024 10:20 AM EDT Office Visit [facility] [place] [address] [place] [address] Praveena Banuelos CRNP [facility] [address] 04/10/2024 11:10 AM EDT Laboratory Laboratory, [place] 21 [facility] [place] [address] [place] [facility] [place] [address] 05/08/2024 9:00 AM EDT Laboratory Laboratory, [facility] [address] [place] [phone] 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 03/06/2024 9:41 AM EDT IRON SCREEN, INCLUDING TIBC Lab Routine Iron deficiency anemia due to chronic blood loss 03/06/2024 9:41 AM EDT FERRITIN Lab Routine Iron deficiency anemia due to chronic blood loss 03/06/2024 9:41 AM EDT Health Maintenance Due Date Last Done Comments COVID-19 Vaccine ( season) 2023 12/17/2020, 11/18/2020 GFR 12/18/2024 12/19/2023, 02/2024, 12/11/2023, Additional history exists Depression Screening 12/19/2024 12/20/2023 Albumin/Creatinine Ratio 05/20/2026 023, 05/14/2022, 07/15/2017 DTaP,Tdap,and [...] this encounter Medical Devices Implanted Type Area Mill Tender Washing Device Identifier Shelf Expiration Date Model / Serial / Lot Love Bio Composite - [id number] Implanted:Qty: 2 on 04/29/2017 by Daquan Ang MD at OR [facility] Left: Shoulder [employer] 12/11/2018 AR-1927BC F / / [id number] [place] Pushlock 4.5x24mm - [id number] Implanted:Qty: 2 on 04/29/2017 by Daquan Ang MD at OR [facility] Left: Shoulder [employer] 12/11/2018 AR-1922BC / / [id number] Clik X Mri Ancor Implanted:Qty: 1 on 01/12/2019 by Saige Rivera MD at OR [facility] N/A: Back [employer] : PAIN MGMT 11/17/2020 SC-4319 / / [id number] Avista Mri 56 Cm 8 Contact Lead Kit Implanted:Qty: 1 on 01/12/2019 by Saige Rivera MD at OR [facility] N/A: Back [employer] : PAIN MGMT 10/30/2020 SC-2408-5 6 / [id number] / [employer]ista Mri 56 Cm 8 Contact Lead Kit Implanted:Qty: 1 on 01/12/2019 by Saige Rivera MD at OR [facility] N/A: Back [employer] : PAIN MGMT 10/30/2020 SC-2408-5 6 / [id number] / Generator Implantable Pulse - [id number] Implanted:Qty: 1 on 01/12/2019 by Saige Rivera MD at OR [facility] N/A: Back [employer] : PAIN MGMT 10/16/2020 [id number] / / Duraclip 16mm Xlg Repostn - [id number] Implanted:Qty: 1 on 08/16/2023 by [id number] [id number] 02/03/2025 DC023 5W / / [id number] Duraclip 16mm Xlg Repostn - [id number] Implanted:Qty: 1 on 08/16/2023 by Ingrid Santiago MD at ENDOSCOPY [facility] [id number] 04/15/2024 DC023 5W / / [id number] Catheter Hemostatic 235cm 2.8mm 11mm [address] Latexfree - [id number] Implanted:Qty: 1 on 12/04/2023 by Donna Parker MD at OR [facility] [employer] : ENDOSCOPY [id number] 12/30/2025 [id number] / / [id number] Catheter Hemostatic 235cm 2.8mm 11mm [address] Latexfree - [id number] Implanted:Qty: 1 on 12/04/2023 by Donna Parker MD at OR [facility] [employer] : ENDOSCOPY [id number] 12/30/2025 [id number] / / [id number] Catheter Hemostatic 235cm 2.8mm 11mm [address] Latexfree - [id number] Implanted:Qty: 1 on 12/04/2023 by Donna Parker MD at OR [facility] [employer] : ENDOSCOPY [id number] 12/30/2025 [id number] / / [id number] documented as of this encounter Procedures Procedure Name Priority Date/Time Associated Diagnosis Comments DIFFERENTIAL, AUTOMATED Routine 03/06/2024 9:41 AM EDT Iron deficiency anemia due to chronic blood loss CBC Routine 03/06/2024 9:41 AM EDT Iron deficiency anemia due to chronic blood loss CBC Routine 03/06/2024 9:41 AM EDT Iron deficiency anemia due to chronic blood loss documented in this encounter Results * (ABNORMAL) DIFFERENTIAL, AUTOMATED (03/06/2024 9:41 AM EDT) WBC 3.60(L) 4.00 - 10.80 K/uL 03/06/2024 9:47 AM EDT LABORATORY [facility] Neutrophils % 57.5 40.0 - 75.0 % 03/06/2024 9:47 AM EDT LABORATORY [facility] Lymphocytes % 25.8 18.0 - 42.0 % 03/06/2024 9:47 AM EDT LABORATORY GL Monocytes % 10.0 1.0 - 11.0 % 03/06/2024 9:47 AM EDT LABORATORY GL Eosinophils % 5.0 0.0 - 6.0 % 03/06/2024 9:47 AM EDT LABORATORY GL Basophils % 1.4 0.0 - 2.0 % 03/06/2024 9:47 AM EDT LABORATORY GL Immature Granulocytes % 0.3 0.0 - 2.0 % 03/06/2024 9:47 AM EDT LABORATORY [facility] Absolute Neutrophils 2.07 1.80 - 7.70 K/uL 03/06/2024 9:47 AM EDT LABORATORY [facility] Absolute Lymphocytes 0.93(L) 1.00 - 4.80 K/ul 03/06/2024 9:47 AM EDT LABORATORY [facility] Absolute Monocytes 0.36 0.00 - 1.10 K/uL 03/06/2024 9:47 AM EDT LABORATORY [facility] Absolute Eosinophils 0.18 0.00 - 0.70 K/uL 03/06/2024 9:47 AM EDT LABORATORY [facility] Absolute Basophils 0.05 0.00 - 0.20 K/uL 03/06/2024 9:47 AM EDT LABORATORY GL Absolute Immature Granulocytes 0.01 0.00 - 0.20 K/uL 03/06/2024 9:47 AM EDT LABORATORY [facility] Blood Venous blood specimen / Unknown Venipuncture / Unknown 03/06/2024 9:41 AM EDT 03/06/2024 9:42 AM EDT Roe Galarza MD LAB BLOOD ORDERABLE S LABORATORY [address] [address] * (ABNORMAL) CBC (03/06/2024 9:41 AM EDT) WBC 3.60(L) 4.00 - 10.80 K/uL 03/06/2024 9:47 AM EDT LABORATORY [facility] RBC 3.36 4.50 - 5.25 M/uL 03/06/2024 9:47 AM EDT LABORATORY [facility] HGB 9.7(L) 14.0 - 16.8 g/dL 03/06/2024 9:47 AM EDT LABORATORY [facility] HCT 31.6(L) 40.0 - 48.4 % 03/06/2024 9:47 AM EDT LABORATORY [facility] MCV 94.0 82.0 - 99.5 fL 03/06/2024 9:47 AM EDT LABORATORY [facility] MCH 28.9 27.0 - 34.0 pg 03/06/2024 9:47 AM EDT LABORATORY [facility] MCHC 30.7 32.0 - 36.0 g/dL 03/06/2024 9:47 AM EDT LABORATORY [facility] RDW 15.4 11.5 - 15.5 % 03/06/2024 9:47 AM EDT LABORATORY [facility] PLT 390 140 - 400 K/uL 03/06/2024 9:47 AM EDT LABORATORY [facility] MPV 9.8 6.6 - 11.1 fL 03/06/2024 9:47 AM EDT LABORATORY [facility] nRBCs 0 <=0 /100 WBCs 03/06/2024 9:47 AM EDT LABORATORY [facility] Blood Venous blood specimen / Unknown Venipuncture / Unknown 03/06/2024 9:41 AM EDT 03/06/2024 9:42 AM EDT Roe Galarza MD LAB BLOOD ORDERABLE S LABORATORY GL [address] [place] [address] documented in this encounter Visit Diagnoses Diagnosis [...] Advance Directives occurred with: Patient Care Teams Solid Waste Truck Driver Relationship Specialty Start Date End Date Praveena Banuelos CRNP [address] 44 PCP - General Nurse Practitioner 05/01/23 documented as of this encounter
--- OUTSIDE RECORDS SUMMARY | 2024-04-08 09:00 | External Medical Summary ---
Author Name Unknown Address Unknown Organization [id number]:[facility] [place] [address] [place] [address] Laboratory Report Ordering Provider Test Date Status SANDYAMBERMARCO 03/06/2024 09:41:16 Final Observation Date Value Abnormality Reference (Units ) Status Iron 03/06/2024 09:41:16 21 Below low normal 45-176 (ug/dL) Final Iron-binding capacity 03/06/2024 09:41:16 393 250-425 (ug/dL) Final Transferrin Sat % 03/06/2024 09:41:16 5 Below low normal 15-55 (%) Final Performing Location LABORATORY C - [address] [place] [address]
--- OUTSIDE RECORDS SUMMARY | 2024-04-08 09:00 | External Medical Summary ---
Author Name Unknown Address Unknown Organization [id number]:LAB[facility]ATORY [facility] [place] - [address] [facility] [address] Laboratory Report Ordering Provider Test Date Status BELIA DELGADO 03/11/2024 11:35:01 Final Observation Date Value Abnormality Reference (Units) Status Bacteria identified in Specimen by Culture 03/11/2024 11:35:01 No significant growth Final Test: Culture, Urine, Quanti tative
Specimen Source: Urine, Clean Catch
Specimen Type: Urine
Specimen Date: 03/11/2024 1135
Result Date: 03/12/2024 1027
Result Status: Final result
Resulting Lab: LABORATORY [facility] [place]
[address]
[place] [address]

CULTURE

No significant growth

null Performing Location LABORATORY [facility] [place] - [address] [facility] [address]
--- OUTSIDE RECORDS SUMMARY | 2024-04-08 09:00 | External Medical Summary ---
Author Name Unknown Address Unknown Organization [id number]:LABORATORY [facility] - [address] [facility] [place] [address] Laboratory Report Ordering Provider Test Date Status BELIA DELGADO 03/06/2024 09:41:16 Final Observation Date Value Abnormality Reference (Units ) Status SYNC LEUKOCYTES IN BLOOD BY AUTOMATED COUNT 03/06/2024 09:41:16 3.60 Below low normal 4.00-10.80 (K/uL) Final Segs 03/06/2024 09:41:16 57.5 40.0-75.0 (%) Final Lymphs % 03/06/2024 09:41:16 25.8 18.0-42.0 (%) Final Monos 03/06/2024 09:41:16 10.0 1.0-11.0 (%) Final Eosinophils 03/06/2024 09:41:16 5.0 0.0-6.0 (%) Final Basos 03/06/2024 09:41:16 1.4 0.0-2.0 (%) Final Immature Granulocyte, Percent 03/06/2024 09:41:16 0.3 0.0-2.0 (%) Final Absolute Segs 03/06/2024 09:41:16 2.07 1.80-7.70 (K/uL) Final Lymphs, absolute 03/06/2024 09:41:16 0.93 Below low normal 1.00-4.80 (K/ul) Final Monos, Abs 03/06/2024 09:41:16 0.36 0.00-1.10 (K/uL) Final Eos, Abs 03/06/2024 09:41:16 0.18 0.00-0.70 (K/uL) Final Basos, Abs 03/06/2024 09:41:16 0.05 0.00-0.20 (K/uL) Final Immature Granulocytes, Number 03/06/2024 09:41:16 0.01 0.00-0.20 (K/uL) Final Performing Location LABORATORY [facility] - [address] [place], [place] [address]. [place] [address]
[2024-04-08] MEDS: ROPIV 0.5% 246mg, Ketorolac 30mg, EPINEPHrine 0.5mg in NSS INFIL SCH (09:12)
[2024-04-08] MEDS: ORTHO JOINT ANESTHETIC ONE (09:13)
[2024-04-08] MEDS ORDERED: HYDROmorphone INJ 2 MG/ML SYR/VIAL ONE (09:36)
--- NOTE | 2024-04-08 09:59 | Post Operative Brief Note ---
Immediate Post Op Note Date of Surgery April 08, 2024 Pre & Post Diagnosis Operation Date: 04/08/24 07:00 Pre-Op Diagnosis: Osteoarthritis Knee Right Post-Op Diagnosis: Osteoarthritis Knee Right I identified the patient and participated in the time-out.: Yes Procedure Operation Date: 04/08/24 07:00 Actual Procedures p Right Total Knee Arthroplasty(Right) - Luther Burnette MD Surgeon Luther Burnette MD Body Corporate Manager V[place]iy [place] Estimated Blood Loss 5 Findings Consistent with Post-Op Diagnosis Specimens Bone cuts Drains Hemovac Drain Anesthesia Type General Regional Complications none Disposition Disposition: Recovery Room Overlapping Procedure I was immediately available: during the entire case.
--- NOTE | 2024-04-08 10:16 | Operative Report ---
Post Operative Report Pre & Post Diagnosis Operation Date: 04/08/24 07:00 Pre-Op Diagnosis: Osteoarthritis Knee Right Post-Op Diagnosis: Osteoarthritis Knee Right I identified the patient and participated in the time-out.: Yes Procedure Operation Date: 04/08/24 07:00 Actual Procedures p Right Total Knee Arthroplasty(Right) - Luther Burnette MD Surgeon Luther Burnette MD Business Department Chair Vitaliy [place] Estimated Blood Loss 5 Findings Consistent with Post-Op Diagnosis Specimens Bone cuts Drains 2 Hemovac Anesthesia Type General Regional Complications none Disposition Disposition: Recovery Room Indications 83-year-old male with a chronic right knee pain failed conservative management. X-rays demonstrate hlaz-ia-tzsi in the lateral compartment and he has a hypoplastic lateral femoral condyle and some bone loss in the lateral compartment. He has some moderate patellofemoral osteoarthritis with a valgus knee. Description of Procedure Patient was taken to the operating room placed supine on the operating table and anesthetized under general regional block anesthesia. Exam under anesthesia demonstrated 10 degree flexion contracture flexion to 125 degrees with no pseudolaxity laterally and moderately large effusion. A pneumatic tourniquet was placed about the thigh of the right lower extremity. The right lower extremity was prepped and draped in usual sterile fashion. The leg was elevated exsanguinated with an Esmarch bandage and the pneumatic tourniquet was raised to 300 mm mercury. An anterior incision was made across the right knee. The skin was incised longitudinally subcutaneous flaps were elevated and an incision was made through the medial retinaculum extending up into the mid third of the quadriceps tendon and extended down to the medial tibial tubercle. Intra- articular findings demonstrated hypoplastic lateral femoral condyle with some bone loss in the flexion surface and iasj-wx-exty in the lateral compartment. There was grade 3 patellofemoral osteoarthritis with circumferential patellar osteophytes.. The knee was exposed by excising a portion of the infrapatellar fat pad, excising the meniscal remnants and anterior and posterior cruciate ligaments. Any inflamed synovial tissue was resected. The fat pad over the anterior femur was resected for placement of the component in that area. The lateral synovial bands were released. The femur was exposed. The drill hole was made into the intramedullary canal of the femur and the guide yuliya was placed and the distal femoral cutting guide was placed to make a 6 degree valgus cut. I made a +2 cut on the femur to correct the flexion contracture. The distal femoral cut was made with the oscillating saw. Bone was very hard. The sizing guide was placed onto the femur and externally rotated to match the epicondylar axis and pinned in position. Size 9 was appropriate. The size 9, 4-in-1 cutting block was placed. The anterior and posterior chamfer cuts were made. Bone quality was very hard. The knee was extended and a subperiosteal peel lateral release was performed around the patella. The patella width was measured and width was reproduced using freehand cut technique. The 38 millimeter symmetrical patella was used. 3 drill holes are made for the pegs. The tibia was exposed. An extra-articular cutting guide was adjusted for appropriate depth of cut and posterior slope and placed perpendicular to the long axis of the tibia and the proximal cut was made with the oscillating saw. All osteophytes were resected. The lamina film masker was used to assess ligamentous balance and the ligaments were balanced in extension and flexion. Lateral capsular IT band release off the tibia and the popliteus tendon release was required. The tibia was reexposed and measured for a size F tibial component. This was externally rotated in line with the tibial tubercle and the fixation pins were drilled. The proximal tibia was fashioned with the drill and punch. The size 9 PS femoral trial was inserted. Notch cut was made and the collet was placed. The trial CPS inserts were used. The 12 mm insert gave balanced ligaments through full range of motion. The patella tracked centrally. the trials were removed. The orthomix anesthetic cocktail was injected into the posterior capsular region and periosteum and synovium around the femur. The knee was then copiously irrigated with pulsatile lavage saline solution. The final components were cemented with Refobacin bone cement. The final components were Bill persona 9 standard posterior stabilized right femur, F right tibia with a 14 x 30 mm cemented stem, 12 CPS right tibial polyethylene and a 38 mm patella polyethylene. Tibial plate was coated with Xperience prior to insertion of the poly. After the cement cured the knee joint was copiously irrigated with pulsatile lavage Xperience solution . 2 drains were brought out laterally and connected to a Hemovac. The quadriceps tendon and medial retinaculum were closed with zlaldd-vd-aauvc #2 FiberWire in the medial retinaculum and the VMO region and distal quad tendon and 1 suture at the level of the tibial polyethylene and 1 more rlnkza-lr-vnzdg suture of #2 FiberWire at the apex of the quad tendon incision superiorly. A running locking 0 strata fix suture was then run from the superior quad tendon down to the medial retinaculum at the inferior pole the patella level. The lower retinacular repaired was performed with interrupted fifzgw-eb-ggfjl #1 Vicryl sutures. The knee was taken through a full range of motion which was 0 through 130 degrees and the repair was secure. The subcutaneous tissues were closed with 2-0 Vicryl sutures and skin was closed with surgical alfredo.A Silverlon occlusive dressing was applied and the patient tolerated the procedure well. Vitaliy [place] my physician office assistant participated as emergency veterinary assistant and was an integral part in all aspects of the procedure, he assisted in soft tissue retraction, instrument management ,leg positioning, the closure, and will participate in the postoperative care of the patient. Im ordering 10 grams of HELIX3-CP Co llagen Powder ([facility] [id number]) to treat an incision wound that will be caused by a total knee procedure. The incision is approximately [4] cm(W) x [12] cm(L) into the joint (D) in size and is a full thickness wound. Helix3-CP collagen comes in 1 gram packages so 10 packages were ordered. Given the size of the wound, with light to moderate exudate I chose to order a 10 day supply for each wound. The patient will be provided instructions for proper application of the collagen wound kit. The patient will be asked to apply the collagen powder daily and then cover it with sterile dressings dispensed. Collagen was selected as I expect the collagen to attract monocytes and fibroblasts, act as a sacrificial substrate for MMPs, and ultimately proved a matrix for tissue and vessel growth. The collagen will act as a primary dressing in this scenario. It is medically necessary for proper healing of these wounds to improve bioavailability and contact with each wound surface, this is also to help prevent infection of wounds and promote healing ultimately leading to a better healing outcome and limit the risk of infection. I attest to the content of the Intraoperative Record and any orders documented therein. Any exceptions are noted below.
[2024-04-08] MEDS ORDERED: POLYETHYLENE (MIRALAX) 17 GM PACK PO PRN (11:00)
[2024-04-08] MEDS ORDERED: MAGNESIUM HYDROXIDE SUSP 30 ML UDC PO PRN (11:00)
[2024-04-08] MEDS ORDERED: bisacodyL 10 MG SUPP PR PRN (11:00)
[2024-04-08] MEDS ORDERED: NALOXONE HCL 0.4 MG/1 ML VIAL/CARP IV PRN (11:00)
[2024-04-08] MEDS ORDERED: diphenhydrAMINE 50 MG/ML VIAL IV PRN (11:00)
[2024-04-08] MEDS ORDERED: HYDROmorphone INJ 0.5 MG/0.5 ML SYR IV PRN (11:00)
[2024-04-08] MEDS: SODIUM CHLORIDE 0.9% 1,000 ML IV SCH (11:13)
[2024-04-08] MEDS: oxyCODONE HCL IR 5 MG TAB (IMMEDIATE RELEASE) PO PRN (11:17)
[2024-04-08] MEDS: TRANEXAMIC ACID 1,000 MG **IV Intra-op IV SCH (11:54)
--- NOTE | 2024-04-08 11:56 | Consultation ---
Date of Consultation April 08, 2024 Assessment & Plan (1) Osteoarthritis of right knee: (2) Status post total right knee replacement: (3) Benign essential hypertension: (4) History of iron deficiency anemia: Plan OA right knee status post right TKR POD 0- further management including DVT prophylaxis, pain management, physical activities, disposition per primary team. Recheck labs in AM. History of iron deficiency anemia with history of multiple AVMs status post treatment- follows with GI and heme-onc. Recent labs 04/03 shows Hb 10.2, ferritin 348, iron saturation 15%, iron 58. Patient gets Sandostatin 10 Mg monthly injections to reduce GI bleeding along with regular labs. His iron deficiency has resolved and his hemoglobin has improved. Last iv iron was on 04/01. Recheck CBC in AM. 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 FREDI- uses CPAP hs DVT prophylaxis-Eliquis per primary team Disposition-Per primary team Time spent-approximately 50 minutes History of Present Illness Requesting Physician: Dr Burnette Reason for Consultation: post-operative medical management Attending Physician: Luther Burnette MD History of Present Illness 83-year-old male with history of hypertension, hyperlipidemia, degenerative disc disease of cervical and lumbar areas, GERD, hiatal hernia, sleep apnea, restless leg syndrome, postlaminectomy syndrome, status post insertion of spinal cord stimulator, iron deficiency anemia, multiple AVMs, right knee OA who underwent elective right total knee replacement by Dr. Burnette today. hospitalist was consulted for postoperative medical management. OP labs from [facility] along with his capper machine operator's notes were reviewed. Patient was seen and examined at bedside in presence of family. He feels fine. Pain is controlled. Tolerating oral intake well without N/V. Denies any CP or SOB. NO fever or chills. Allergies Allergy/AdvReac Type Severity Reaction Status Date / Time No Known Drug Allergies Allergy Unknown . Verified 04/08/24 05:42 Home Medications Medication Instructions Recorded Confirmed Type acetaminophen 500 mg tablet 1,000 mg PO Q6H PRN Pain 03/03/24 04/08/24 History amlodipine 5 mg tablet 5 mg PO QAM 03/03/24 04/08/24 History atorvastatin 20 mg tablet 20 mg PO QAM 03/03/24 04/08/24 History duloxetine 60 mg capsule,delayed 120 mg PO QAM 03/03/24 04/08/24 History release famotidine 20 mg tablet 20 mg PO BID 03/03/24 04/08/24 History ferrous sulfate 27 mg iron tablet 54 mg PO Q2D 03/03/24 04/08/24 History folic acid 400 mcg tablet 0.4 mg PO QAM 03/03/24 04/08/24 History magnesium 250 mg tablet 250 mg PO HS 03/03/24 04/08/24 History octreotide,microspheres 10 mg 10 mg IM UD 03/03/24 04/08/24 History intramuscular kit omeprazole 40 mg capsule,delayed 40 mg PO QAM 03/03/24 04/08/24 History release polyethylene glycol 3350 17 17 g PO DAILY PRN Constipation 03/03/24 04/08/24 History gram/dose oral powder (Miralax) ropinirole 0.5 mg tablet 0.5 mg PO HS 03/03/24 04/08/24 History Patient History Medical History AVM (arteriovenous malformation) duodenum Hearing loss hearing aids History of blood transfusion (~11/2023) Hx of angioedema (2019) Hx of lower gastrointestinal bleeding (~11/2023) hospitalized [facility]>required transfusions Back pain chronic, denies change or worsening Hypertension controlled, stable per pt Frozen shoulder right BPH (benign prostatic hyperplasia) 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 details or dates (pt states can good rom) History of lumbar surgery x 2 *lumbar surgery ? details/dates History of esophagogastroduodenoscopy (EGD) History of colonoscopy H/O hernia repair History of tooth extraction History of cataract surgery right/left H/O repair of rotator cuff left History of carpal tunnel surgery left H/O arthroscopic knee surgery right Family History Father Diabetes Coronary heart disease Osteoarthritis Mother Diabetes Coronary heart disease Other No family history of adverse response to anesthesia Social History Smoking Status: Former smoker Tobacco Type: Cigarettes Age Quit Using Tobacco: 50; packs per day: 2; Smoking End Date: 1981; Second Hand Exposure: No; Do You Dip or Chew Tobacco: No; Hx Alcohol Use: Yes Alcohol type: beer Hx Substance Use: No Preferred Language: Armenian Roundhouse Worker Required: No Beliefs That Will Affect Care: None marital status: Current Living Situation: Spouse current occupational status: retired Feels Safe at Home: Yes Safety Concerns: Feels Safe At This Time Seatbelt Use: always Do you think of yourself as: straight/heterosexual Assistive Devices: Cane, CPAP, Denture - Upper, Glasses and Hearing Aid - Bilateral Assistive Devices Comment: reading glasses Review of Systems Review of Systems: All systems reviewed & are unremarkable except as noted in Subjective Physical Exam Physical Exam: General: Lying comfortably in bed, not in distress, on NC HEENT: PEDRO, MMM, Hard of hearing Chest: Decreased breath sounds bilaterally, no wheezes or crackles CVS: Regular rate and rhythm, normal heart sounds, no murmur Abdomen: Soft, non tender, not distended, normal bowel sounds Neuro: Awake, alert, oriented, conversing well, non focal MSK: Rt knee covered with dressing- hemovac suction with serosang output Results & Data Vital Signs (Past 12 Hours) Vital Signs Temp Pulse Pulse Resp BP Pulse Ox O2 Del Method 04/08/24 11:30 80 16 107/68 94 Nasal Cannula 04/08/24 11:00 36.6 C 84 16 128/65 9 L Nasal Cannula 04/08/24 10:45 84 19 146/62 H 95 Nasal Cannula 04/08/24 10:35 36.4 C L 86 12 142/65 H 92 Room Air 04/08/24 10:25 82 13 136/62 95 Oxymask 04/08/24 10:15 81 13 133/64 96 Oxymask 04/08/24 10:05 77 14 116/61 97 Oxymask 04/08/24 09:58 36.0 C L 74 14 122/53 L 92 Oxymask 04/08/24 05:53 36.8 C 84 20 154/74 H 97 Room Air O2 Flow Rate 04/08/24 11:30 2 04/08/24 11:00 2 04/08/24 10:45 2 04/08/24 10:35 0 04/08/24 10:25 4 04/08/24 10:15 8 04/08/24 10:05 8 04/08/24 09:58 12 04/08/24 05:53 (1) Osteoarthritis of right knee Osteoarthritis type: primary Qualified Code(s): M17.11 - Unilateral primary osteoarthritis, right knee
--- NOTE | 2024-04-08 12:20 | XRay Report ---
XR knee RT 1 or 2V routine CLINICAL HISTORY: Surgical Post Op TECHNIQUE: 2 views of the right knee were obtained. Comparison: Comparison is made to knee radiographs 08/01/2023 FINDINGS: Patient is status post total knee arthroplasty with expected postsurgical changes including soft tiss ue swelling and subcutaneous emphysema. No periarticular lucency or hardware fracture is seen. IMPRESSION: Expected postoperative appearance status post placement of total knee arthroplasty. ACT 112: Negative or not required by law. Electronically signed by: Josh Mosquera M.D. 04/08/2024 12:19 PM
--- NOTE | 2024-04-08 14:19 | Anesthesiology Progress Note ---
Date of Service April 08, 2024 Anesthesia Post Procedure Vital Signs Vital Signs: Temp Pulse Pulse Resp BP Pulse Ox O2 Del Method 04/08/24 13:59 36.5 C 78 16 115/64 94 Room Air 04/08/24 13:06 36.7 C 78 16 117/66 92 Room Air 04/08/24 11:30 80 16 107/68 94 Nasal Cannula 04/08/24 11:10 Nasal Cannula 04/08/24 11:00 36.6 C 84 16 128/65 9 L Nasal Cannula 04/08/24 10:45 84 19 146/62 H 95 Nasal Cannula 04/08/24 10:35 36.4 C L 86 12 142/65 H 92 Room Air 04/08/24 10:25 82 13 136/62 95 Oxymask 04/08/24 10:15 81 13 133/64 96 Oxymask 04/08/24 10:05 77 14 116/61 97 Oxymask 04/08/24 09:58 36.0 C L 74 14 122/53 L 92 Oxymask 04/08/24 05:53 36.8 C 84 20 154/74 H 97 Room Air O2 Flow Rate 04/08/24 13:59 04/08/24 13:06 04/08/24 11:30 2 04/08/24 11:10 2 04/08/24 11:00 2 04/08/24 10:45 2 04/08/24 10:35 0 04/08/24 10:25 4 04/08/24 10:15 8 04/08/24 10:05 8 04/08/24 09:58 12 04/08/24 05:53 Transfer of Care Handoff Completed per policy Notes Mental Status: alert / awake / arousable and participated in evaluation Patient Amnestic to Procedure: Yes Nausea / Vomiting: adequately controlled Pain: adequately controlled Airway Patency, RR, SpO2: stable & adequate BP & HR: stable & adequate Hydration State: stable & adequate Anesthetic Complications: no major complications apparent and Pt Satisfied with anesthetic care
[2024-04-08] MEDS ORDERED: APIXABAN 2.5 MG TAB PO SCH (21:00)
[2024-04-08] MEDS: MAGNESIUM OXIDE 400 MG TAB PO SCH (21:08)
[2024-04-08] MEDS: rOPINIRole HCL 0.25 MG TABLET PO SCH (21:08)
[2024-04-08] MEDS: DOCUSATE SODIUM 100 MG CAP PO SCH (21:09)
--- OUTSIDE RECORDS SUMMARY | 2024-04-08 21:20 | External Medical Summary | Summary of Care ---
Author Name Unknown Organization [facility] Address [address] [place] [address] Phone [phone] Care Team Providers Care Brake Repair Mechanic Name Role Phone Maria Elena Banuelos Primary Care Provider [phone]- [phone] Reason for Visit * Reason Comments Medication Refill Encounter Details Date Type Department Care Team (Late st Contact Info) Description 04/06/2024 Refill [facility] [address] [facility] [place] [phone] Maria Elena Banuelos CRNP [address] [facility] [place] [address] Allergies No known active allergiesdocumented as of this encounter (statuses as of 04/08/2024) Medications Medication Sig Dispensed Refills Start Date [...] Tablet by mouth in the morning. Active Famotidine 20 MG Oral Tablet (Pepcid)Indication [...] the morning. 200 Capsule 1 4 Active amLODIPine Besylate 5 MG Oral Tablet (Norvasc) Take 1 Tablet by mouth in the morning. 90 Tablet 1 4 Active amLODIPine Besylate 5 MG Oral Tablet (Norvasc) Take 1 Tablet by mouth in the morning. 90 Tablet 1 3 04/06/20 24 Discontinu ed(Refill) documented as of this encounter (statuses as of 04/08/2024) Active Problems Problem Noted Date Diagnosed Date Dizziness 12/23/2023 Gastrointestinal hemorrhage 10/01/2023 AVM (arteriovenous malformation) of duodenum, 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 Sacroiliitis 08/30/2023 Tachycardia 08/28/2023 Symptomatic anemia 08/13/2023 Orthostatic hypotension 08/13/2023 Hearing loss 10/16/2021 S/P insertion of spinal cord stimulator 08/28/20 21 Overview: 08/28/2021 L flank subcut device (working) Monitored by [employer] Last Assessment & Plan: Monitored by Cloudstaff rep Nocturia 04/24/2021 Last Assessment & Plan: [...] as of this encounter (statuses as of 04/08/2024) Resolved Problems Problem Noted Date Diagnosed Date [...] as of this encounter (statuses as of 04/08/2024) Immunizations Name Administration Dates Next Due COVID-19 [...] Notes * Telephone Encounter - Maria Elena Banuelos CRNP - 04/08/2024 7:43 AM EDTSigned Prescriptions: Disp Refills amLODIPine Besylate 5 MG Oral Tablet (Norv*90 Tab*1 Sig: Take 1 Tablet by mouth in the morning. Authorizing Provider: MARIA ELENA BANUELOS * Telephone Encounter - Tiny Brand LPN - 04/06/2024 2:24 PM EDTPending Prescriptions: Disp Refills amLODIPine Besylate 5 MG Oral Tablet (Norv*90 Tab*1 Sig: Take 1Tablet by mouth in the morning. documented in this encounter Plan of Treatment Upcoming Encounters Date Type Department Care Team (Late st Contact Info) Description 05/08/2024 9:00 AM EDT Laboratory Laboratory, [facility] [address] [place] [phone] [facility], Lab [address] [place] [address] 06/18/2024 9:30 AM EDT Office Visit Gastroenterology, [facility] [address] [place] [phone] Marlene Bruno PA-C [address] [place] [address] 08/12/2024 12:20 PM EDT Office Visit [facility], [place] [address] [facility] [place] [phone] Maria Elena Banuelos CRNP [address] [facility] [place] [id number] 03/19/2025 9:00 AM EDT Nurse Only Ancillary 1st Floor, [place] [facility] [place] [id number] [facility] [address] Health Maintenance Due Date Last Done Comments COVID-19 Vaccine (3 - 2022- season) 2023 12/17/2020, 11/18/2020 Depression Screening 03/13/2025 [...] this encounter Medical Devices Implanted Type Area Manager Call Center Device Identifier Shelf Expiration Date Model / Serial / Lot Love Bio Composite - [id number] Implanted:Qty: 2 on 04/29/2017 by Daquan Ang MD at OR [facility] Left: Shoulder [employer] 12/11/2018 AR-1927BC F / / [id number] Easley Pushlock 4.5x24mm - [id number] Implanted:Qty: 2 on 04/29/2017 by Daquan Ang MD at OR [facility] Left: Shoulder [employer] 12/11/2018 AR-1922BC / / [id number] Clik X Mri Ancor Implanted:Qty: 1 on 01/12/2019 by Saige Rivera MD at OR [facility] N/A: Back [employer] : PAIN MGMT 11/17/2020 [id number] / / [id number] Avista Mri 56 Cm 8 Contact Lead Kit Implanted:Qty: 1 on 01/12/2019 by Saige Rivera MD at OR [facility] N/A: Back [employer] : PAIN MGMT 10/30/2020 SC-2408-5 6 / [id number] / [employer]ista Mri 56 Cm 8 Contact Lead Kit Implanted:Qty: 1 on 01/12/2019 by Saige Rivera MD at OR [facility] N/A: Back [employer] : PAIN MGMT 10/30/2020 SC-2408-5 6 / [id number] / Generator Implantable Pulse - [id number] Implanted:Qty: 1 on 01/12/2019 by Saige Rivera MD at OR [facility] N/A: Back [employer] : PAIN MGMT 10/16/2020 [id number] / / Duraclip 16mm Xlg Repostn - [id number] Implanted:Qty: 1 on 08/16/2023 by Ingrid Santiago MD at ENDOSCOPY [facility] [employer] [id number] 02/03/2025 [id number] 5W / / [id number] Duraclip 16mm Xlg Repostn - [id number] Implanted:Qty: 1 on 08/16/2023 by Ingrid Santiago MD at ENDOSCOPY [facility] [employer] [id number] 04/15/2024 DC023 5W / / [id number] Catheter Hemostatic 235cm 2.8mm 11mm Cl[address] Latexfree - [id number] Implanted:Qty: 1 on 12/04/2023 by Donna Parker MD at OR [facility] [employer] : ENDOSCOPY [id number] 12/30/2025 [id number] / / [id number] Catheter Hemostatic 235cm 2.8mm 11mm Cl[address] Latexfree - [id number] Implanted:Qty: 1 on 12/04/2023 by Donna Parker MD at OR [facility] [employer] : ENDOSCOPY [id number] 12/30/2025 [id number] / / [id number] Catheter Hemostatic 235cm 2.8mm 11mm Clip [facility] - [id number] Implanted:Qty: 1 on 12/04/2023 by Donna Parker MD at OR [facility] [employer] : ENDOSCOPY [id number] 12/30/2025 [id number] / / [id number] documented as of this encounter Advance Directives [...] Advance Directives occurred with: Patient Care Teams Brake Repair Mechanic Relationship Specialty Start Date End Date Maria Elena Banuelos CRNP [address] [id number] PCP - General Nurse Practitioner 05/01/23 documented as of this encounter
[2024-04-08 22:38] VITALS: RESP 18
[2024-04-09 06:55] LABS: Hematocrit (blood only) 29.1 % (42.0-52.0); Hemoglobin 8.9 g/dl (14.0-18.0); Mean Corpuscular Hemoglobin 29.6 pg (25.0-34.0); Mean Corpuscular Hgb Conc 30.6 g/dL (32.0-36.0); Mean Corpuscular Volume 96.7 fL (80.0-100.0); Mean Platelet Volume 10.3 fL (9.4-12.4); Platelet Count 384 K/uL (130-400); RDW Standard Deviation 70.4 fL (36.4-46.3); Red Blood Count 3.01 M/uL (4.70-6.10); White Blood Count 14.12 K/ul (4.8-10.8)
[2024-04-09 07:18] VITALS: BP 118/65; PULSE 81; TEMP 98.2; O2SAT 94
[2024-04-09 07:21] LABS: BUN Creatinine Ratio 24.2 (10-20); Calcium 8.1 mg/dl (8.6-10.3); Creatinine Clr Calc Pharmacy 60.2 ml/min; Est GFR (African American) 65.3 ml/min; Est GFR (Non-African American) 56.4 ml/min; Potassium 4.4 mmol/L (3.5-5.1)
[2024-04-09] MEDS: amLODIPine BESYLATE 5 MG TAB PO SCH (07:36)
[2024-04-09] MEDS: MULTIVITAMIN TAB PO SCH (07:37)
[2024-04-09] MEDS: DULoxetine HCL 60 MG CAP PO SCH (07:37)
[2024-04-09] MEDS: PANTOprazole 40 MG TAB PO SCH (07:37)
[2024-04-09] MEDS: FOLIC ACID 400 MCG TAB PO SCH (07:37)
[2024-04-09] MEDS: ATORVASTATIN 20 MG TAB PO SCH (07:37)
[2024-04-09] MEDS: APIXABAN 2.5 MG TAB PO SCH (07:37)
--- NOTE | 2024-04-09 08:34 | Orthopedic Progress Note ---
Date of Service April 09, 2024 Assessment & Plan (1) History of total right knee replacement: Plan: Postop day 1 right total knee replacement. Patient has preop anemia. Assess labs today and if satisfactory patient can be discharged home if does well in PT. I discussed with him that he can leave the drain in upon discharge and we are in [place] office tomorrow and he lives close by and he can come to the office and have the drain removed as an outpatient. Admission and Anticipated Discharge Date Admission Date: April 08, 2024 Subjective No complaints. Slightly more pain since nerve block is worn off but tolerable.. Patient feels things are going well. Physical Exam 2 Physical Exam: Dressing dry and intact circulation intact. Results & Data Vital Signs (Past 12 Hours) Vital Signs Temp Pulse Resp BP BP Pulse Ox O2 Del Method 04/09/24 08:00 Room Air 04/09/24 07:17 36.8 C 81 18 118/65 94 Room Air 04/09/24 03:04 36.6 C 61 18 144/66 H 96 Room Air 04/08/24 22:37 36.8 C 89 18 120/59 L 95 Room Air
[2024-04-09] MEDS: FERROUS SULFATE 325 MG TAB PO SCH (09:31)
[2024-04-09] MEDS: FAMOTIDINE 20 MG TAB PO SCH (09:31)
--- NOTE | 2024-04-09 10:58 | Hospitalist Progress Note ---
Date of Service April 09, 2024 Assessment & Plan (1) Osteoarthritis of right knee: (2) Status post total right knee replacement: (3) Benign essential hypertension: (4) History of iron deficiency anemia: Plan Osteoarthritis Right Knee S/P Right Total Knee Arthroplasty by on 04/08/24 Postoperative acute blood loss anemia Activity, wound care, DVT prophylaxis per primary team Pain control Bowel regimen to prevent constipation Incentive spirometry Advised to follow-up with PCP, orthopedics on discharge H/O Iron deficiency anemia H/O multiple AVMs S/P treatment Follows with GI and heme-onc Recent labs 04/03 shows Hb 10.2, ferritin 348, iron saturation 15%, iron 58 Receives Sandostatin 10 Mg monthly injections to reduce GI bleeding Continue iron, folic acid supplements Monitor CBC Advised to obtain blood work in 1 week to monitor hemoglobin levels Essential Hypertension Continue Amlodipine Monitor BP GERD Continue Pepcid, PPI Restless leg syndrome Continue Requip H/O folic acid deficiency Continue folic acid supplements FREDI CPAP HS DVT Px: Eliquis Admission and Anticipated Discharge Date Admission Date: April 08, 2024 Subjective Patient is seen and examined at bedside Right knee pain at surgical site is controlled Otherwise feels well today Family at bedside Denies any chest pain, dyspnea, nausea, vomiting, abdominal pain Review of Systems Review of Systems: All systems reviewed & are unremarkable except as noted in Subjective Physical Exam Physical Exam: Physical Exam: Vitals signs as noted above General Appearance:Obese, no apparent distress Head: normocephalic, Atraumatic Eyes: normal inspection, EOMI Neck: supple, Trachea midline Respiratory/Chest: Normal breath sounds, CTA, No accessory muscle use Cardiovascular: S1, S2, No murmur Abdomen/GI:Soft, Non tender, Bowel sounds present Extremities/Musculoskeletal:normal inspection, Trace edema, R knee surgical site in dressing Neurologic/Psych:AAOX3, grossly no focal neurological deficits Skin: normal color, warm Results & Data Results & Data Vital Signs (Past 12 Hours) Vital Signs Temp Pulse Resp BP BP Pulse Ox O2 Del Method 04/09/24 08:00 Room Air 04/09/24 07:17 36.8 C 81 18 118/65 94 Room Air 04/09/24 03:04 36.6 C 61 18 144/66 H 96 Room Air Laboratory Results Short CBC 04/09/24 Range/Units 06:31 WBC 14.12 H (4.8-10.8) K/ul Hgb 8.9 L (14.0-18.0) g/dl Hct 29.1 L (42.0-52.0) % Plt Count 384 (130-400) K/uL BMP 04/09/24 06:31 Sodium 135 L Potassium 4.4 Chloride 103 Carbon Dioxide 24 BUN 29 H Creatinine 1.20 Glucose 150 H Calcium 8.1 L (1) Osteoarthritis of right knee Osteoarthritis type: primary Qualified Code(s): M17.11 - Unilateral primary osteoarthritis, right knee
--- NOTE | 2024-04-12 09:55 | Discharge Summary ---
Date of Service April 12, 2024 Admission HPI Per Admitting Provider 83-year-old male with chronic progressive right knee pain failed conservative management. 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 Patient denies headaches, sweats, fevers, chills, double vision, blurred vision, cough, sore throat, dysphagia, chest pain, sob, wheezing, n/v/d/c, numbness, tingling, fatigue, urinary symptoms, mood disorders. ROS positive for chronic low back pain acid reflux purposeful weight loss with ongoing obesity Admission Exam Per Admitting Provider Physical Exam Constitutional: WD/WN, vitals as above Respiratory: normal respiratory effort; no respiratory distress Cardiovascular: Rate/Rhythm: regular rate and regular rhythm Musculoskeletal: Right knee exam demonstrates 0 through 130 degrees range of motion painful Lyndsey test on the lateral side moderate patellofemoral crepitation lateral joint line tenderness mild effusion ,crepitation with range of motion, valgus knee. Distal circulation sensorimotor exam intact. Skin: no rashes, warm and dry Neurologic: normal touch/pain/proprioception Psychiatric: A+Ox3, euthymic affect Principal Diagnosis Right knee DJD Discharge Data Allergies Allergy/AdvReac Type Severity Reaction Status Date / Time No Known Drug Allergies Allergy Unknown . Verified 04/08/24 05:42 Consultations 04/07/24 08:53 Consult Hospitalist Routine Procedures Performed Operation Date: 04/08/24 07:00 Actual Procedures p Right Total Knee Arthroplasty(Right) - Luther Burnette MD Ordered Studies 04/08/24 05:00 US - OR guided needle placemen Routine Hospital Course (1) History of total right knee replacement: Patient: KRZYSZTOF CLINTON Admit Date: 04/08/24 MR#: [id number] Att Phy: Luther Burnette M.D. Acct ID: [id number] Stephanie Phy: Praveena Banuelos CRNP Date: 1940 Fam Phy: Age: 83 Location: 3W Sex: M Room/Bed: [facility] cc: ~ *NOTICE TO RECEIVING DEMOCRAT/AGENCY This information is strictly Confidential and protected under [place] law. [place] law prohibits you from making any further disclosure of this information unless further disclosure is expressly permitted by the written consent of the person to whom it pertains or is authorized by law. A general authorization for the release of medical or other information is not sufficient for this purpose. Hospital accepts no responsibility if the information is made available to any other person, INCLUDING THE PATIENT. Date of Service April 09, 2024 Assessment & Plan (1) History of total right knee replacement: Plan: Postop day 1 right total knee replacement. Patient has preop anemia. Assess labs today and if satisfactory patient can be discharged home if does well in PT. I discussed with him that he can leave the drain in upon discharge and we are in [place] office tomorrow and he lives close by and he can come to the office and have the drain removed as an outpatient. Admission and Anticipated Discharge Date Admission Date: April 08, 2024 Subjective No complaints. Slightly more pain since nerve block is worn off but tolerable.. Patient feels things are going well. Physical Exam Physical Exam: Dressing dry and intact circulation intact. Results & Data Vital Signs (Past 12 Hours) Vital Signs Temp Pulse Resp BP BP Pulse Ox O2 Del Method 04/09/24 08:00 Room Air 04/09/24 07:17 36.8 C 81 18 118/65 94 Room Air 04/09/24 03:04 36.6 C 61 18 144/66 H 96 Room Air 04/08/24 22:37 36.8 C 89 18 120/59 L 95 Room Air Signed By: <Electronically signed by Luther Burnette MD> 04/09/24 0834 Created: 04/09/24 0831 Total Time Total Time Spent Total Time Spent (In Minutes): 5 Discharge Plan Discharge Items Patient Disposition: Home - Self-Care Reason For Visit: Osteoarthritis Knee Right Discharge Diagnosis: Osteoarthritis right knee Activity: Per Instructions section Weightbearing: Full weightbearing Non-emergency contact: Surgeon Call non-emergency contact if: you have any medication questions, your pain is not controlled, your temperature is above 101.5, your wound has increased redness and your wound has increased drainage Follow-up/Referrals: Luther Burnette MD [Surgeon] - ( follow-up with Dr. Burnette in 2 weeks from the day of your surgery for your first postoperative visit) Praveena Banuelos CRNP [Primary Care Provider] - (Date & Time 04/15/2024 11:40 AM Provider Praveena Banuelos CRNP Department [facility] ) Diet: Regular Addtl Attending Provider Instructions: FOLLOW UP WITH DR BURNETTE IN [place] OFFICE TOMORROW, 04/09/24Saturday, TO HAVE YOUR DRESSING CHANGED AND YOUR HEMOVAC DRAIN REMOVED. ACTIVITY RECOMMENDATIONS: SELF CARE INSTRUCTIONS AFTER TOTAL KNEE REPLACEMENT A. You may need to continue a physical therapy program after discharge from the hospital. There are several options available to you. Your doctor will assist you in selecting the best one for you. 1. An out-patient facility 2 to 3 times a week for therapy or home therapy. 2. Continue working on all exercises taught to you in the hospital. Your goals should be to increase bending of your knee to 90 degrees and beyond and to fully straighten your knee. B. You may progress at your own pace from walking with a walker or crutches to a cane; then to no assistive devices. C. Make walking a part of your daily routine. Be up as much as comfortable with rest periods throughout the day. Rest with leg elevation is very important. Use the ice wrap frequently for the first 3-4 weeks. D. There are no restrictions on activities. You may ride in a car, shop, participate in drill rig operator helper and all social activities. E. Wear the long elastic stockings (NEW hose) 20 hours a day for 2 weeks after surgery. They can be removed several times a day for laundering and for a bath. F. You may shower, no tub baths until cleared by your doctor. SPECIAL CARE INSTRUCTIONS: VERY IMPORTANT TO READ AND REVIEW A. There are a few signs you need to watch for after you are home. Call [facility] if you notice any of the followin. Increased severe knee pain. Some pain is expected especially when you exercise. 2. Increased swelling in your leg or knee; pain or swelling of the calf muscle in either lower leg. 3. Any fluid drainage from the incision. 4. Shortness of breath or chest pain. B. Please call [facility] at if you have any concerns or questions about your operation or recovery. The doctor or his nurse will return your call promptly. C. You must take antibiotics before dental work, bladder, bowel or other surgery. Your doctor will provide you with a permanent care to carry describing this precaution. IMPORTANT: * REMEMBER TO TAKE ELIQUIS 5 MG , TWICE DAILY FOR 4 WEEKS UNLESS OTHERWISE DIRECTED. THIS IS YOUR BLOOD THINNER. * CALL IF INCREASED PAIN, REDNESS, DRAINAGE OR FEVER GREATER THAT 101. * WEAR NEW HOSE 20 HOURS PER DAY FOR 2 WEEKS. * YOU MAY HAVE A LARGE BAND-AID LIKE DRESSING (SILVERON). THIS WILL REMAIN ON YOUR INCISION FOR 7 DAYS, THEN CAN BE REMOVED. IF INCISION IS LEAKING THROUGH DRESSING, CALL THE OFFICE . FOLLOW UP VISIT: If appointment is not already scheduled: Please call [facility] to make a follow-up appointment for 2 weeks after your surgery at . Stand-Alone Forms: My [facility] [place], Smoking Cessation Medications and DC Order Prescriptions: New Eliquis 2.5 mg Tablet 2.5 mg PO BID 30 Days Qty: 60 0RF acetaminophen [Tylenol Extra Strength] 500 mg Tablet 1,000 mg PO Q8 14 Days Qty: 84 0RF polyethylene glycol 3350 [Miralax] 17 gram powder in packet 17 g PO DAILY PRN (Reason: constipation) Qty: 5 0RF oxycodone 5 mg tablet 5 mg PO Q4H MDD 6 PRN (Reason: pain) Qty: 30 0RF Continued octreotide,microspheres 10 mg Kit 10 mg IM UD Patient Comments: monthly injection amlodipine 5 mg Tablet 5 mg PO QAM folic acid 400 mcg Tablet 0.4 mg PO QAM omeprazole 40 mg Capsule,Delayed Release(Dr/Ec) 40 mg PO QAM famotidine 20 mg Tablet 20 mg PO BID ropinirole 0.5 mg Tablet 0.5 mg PO HS magnesium 250 mg Tablet 250 mg PO HS polyethylene glycol 3350 [Miralax] 17 gram/dose Powder 17 g PO DAILY PRN (Reason: Constipation) duloxetine 60 mg Capsule,Delayed Release(Dr/Ec) 120 mg PO QAM ferrous sulfate 27 mg iron Tablet 54 mg PO Q2D atorvastatin 20 mg tablet 20 mg PO QAM Discontinued acetaminophen 500 mg Tablet 1,000 mg PO Q6H PRN (Reason: Pain) Discharge Orders: Discharge Order (Routine); Ordered 04/09/24 Ordered By: Vitaliy Bales Admission Data Admit Date/Time: 04/08/24 10:06 Attending Provider: Luther Burnette Admit Provider: Luther Burnette Primary Care Provider: Praveena Banuelos Other Providers: Eduardo Hollis Other Interventions: Discharge Summary Assessment (RN) Last Done: 04/09/24 11:21
== END 2024-04-09 13:58 | disposition home or self-care (01) ==
LOC: ASU 05:04 → 3W 05:04
DX: Z87.891 Personal history of nicotine dependence; F17.210 Nicotine dependence, cigarettes, uncomplicated; N40.0 Benign prostatic hyperplasia without lower urinary tract symptoms; M17.11 Unilateral primary osteoarthritis, right knee; G25.81 Restless legs syndrome; I10 Essential (primary) hypertension; Z79.899 Other long term (current) drug therapy; K21.9 Gastro-esophageal reflux disease without esophagitis